=== PATIENT | male | born 1935 | race Caucasian/White ===

== ENCOUNTER → 2023-10-13 09:15 | Outpatient (REF) | payer MEDICARE, BC, SELFPAY | LOC: RAD 09:15 | PROVIDERS: ATTENDING PHYSICIAN Internal Medicine | DX: M54.31 Sciatica, right side (principal); M25.551 Pain in right hip | CPT/HCPCS: 72110; 73502 ==

== ENCOUNTER → 2024-06-16 10:31 | Outpatient (REF) | payer MEDICARE, BC, SELFPAY ==
[2024-06-16 11:59] LABS: % Immature Granulocytes 0.2 % (0-0.5); % Lymphocytes 30.6 % (20.5-51.1); % Monocytes 8.7 % (1.7-9.3); % Neutrophils 50.5 % (42.2-75.2); Absolute Basophils 0.1 10^3/uL (0-0.2); Absolute Eosinophils 0.6 10^3/uL (0-0.7); Absolute Lymphocytes 1.9 10^3/uL (1.2-3.4); Absolute Monocytes 0.5 10^3/uL (0.1-0.6); Absolute Neutrophils 3.1 10^3/uL (1.4-6.5); Hematocrit 42.9 % (39.0-52.0); Hemoglobin 14.6 g/dL (13.0-18.0); Mean Corpuscular Hgb 30.2 pg (27.0-31.0); Mean Corpuscular Volume 88.6 fL (80.0-94.0); Mean Platelet Volume 9.6 fL (7.4-10.4); Nucleated Red Blood Cells % 0 % (-); Platelet Count 152 10^3/uL (130-400); Red Blood Cell Count 4.84 10^6/uL (4.70-6.10); Red Cell Dist. Width 13.7 % (11.5-14.5); White Blood Cell Count 6.1 10^3/uL (4.8-10.8)
[2024-06-16 12:46] LABS: ALT (SGPT) 26 U/L (0-50); AST (SGOT) 30 U/L (17-59); Albumin 4.5 g/dl (3.5-5.0); Alkaline Phosphatase 121 U/L (38-126); Blood Urea Nitrogen 35 mg/dl (9-20); Calcium 9.9 mg/dl (8.4-10.2); Carbon Dioxide 20 mmol/L (22-30); Chloride 106 mmol/L (98-107); Glucose 122 mg/dl (70-99); HDL Cholesterol 57 mg/dl; LDL Cholesterol, Calculated 122 mg/dl; Sodium 138 mmol/L (135-145); Total Bilirubin 1.1 mg/dl (0.2-1.3); Total Cholesterol 209 mg/dl (50-199); Total Protein 7.6 g/dl (6.3-8.2); Triglyceride 151 mg/dl (10-149); Very Low Density Lipoprotein 30 mg/dl (0-30); eGFR 30.09
[2024-06-16 13:09] LABS: TSH 6.78 uIU/ml (0.47-4.68)
[2024-06-17 23:23] LABS: PSA Total <0.1 ng/mL (0.0-4.0)
== END ==
LOC: REG 10:31
PROVIDERS: ATTENDING PHYSICIAN Internal Medicine; OTHER PHYSICIAN Internal Medicine Cardiovascular Disease
DX: I10 Essential (primary) hypertension (principal); C67.9 Malignant neoplasm of bladder, unspecified; R73.03 Prediabetes; E78.5 Hyperlipidemia, unspecified; C61 Malignant neoplasm of prostate; E83.52 Hypercalcemia; R53.83 Other fatigue
CPT/HCPCS: 36415; 80053; 80061; 83036; 84153; 84154; 84443; 85025

== ENCOUNTER 2025-01-18 01:11 | Inpatient (IN) | payer MEDICARE, BC, SELFPAY ==
[2025-01-17 17:05] VITALS: BP 145/69
[2025-01-17 17:24] LABS: Hematocrit 40.0 % (39.0-52.0); Hemoglobin 13.4 g/dL (13.0-18.0); Mean Corp Hgb Conc. 33.5 g/dL (33.0-37.0); Mean Corpuscular Volume 89.3 fL (80.0-94.0); Nucleated Red Blood Cells % 0 % (-); Platelet Count 144 10^3/uL (130-400); Red Cell Dist. Width 13.8 % (11.5-14.5)
--- NOTE | 2025-01-17 17:26 | ED.GENMED ---
ED Provider Triage
<Ijeoma Andrade PA-C - Last Filed: 01/17/25 17:27>
-
Patient seen by provider in Triage?: Seen in Triage
Attestation: A medical screening examination has been initiated by a qualified medical provider. Based on the assessment performed at this time, it has been determined that an emergent medical condition may exist and the patient has been informed
that further medical evaluation and possible additional diagnostic testing may be needed.
HPI: 89yoM here with a positive outpatient venous duplex. C/o R leg swelling and pain x 5 days. US today showed 'Occlusive thrombus throughout the right lower extremity involving the right common femoral, femoral, popliteal, peroneal, and posterior
tibial veins.' IVC filter placed in 2006. Denies CP/SOB. Not on thinners.
GENERAL: Alert , in no apparent distress
EYE: No visual abnormalities.
NECK: Trachea midline
ENT: No visible abnormalities.
LUNGS: No acute respiratory distress
NEUROLOGICAL: Alert and oriented
SKIN: Skin intact. No visible changes.
MUSCULOSKELETAL: Moving extremities normally
PSYCH: Normal and appropriate interaction.
This is a medical evaluation conducted in person to initiate diagnostic evaluation and provide initial therapeutics. Please see further documentation by the treating clinician.
Labs ordered.
History of Present Illness
<Ijeoma Andrade PA-C - Last Filed: 01/17/25 17:27>
General
Chief Complaint: DVT/Possible Blood Clot
Time Seen by Provider: 01/17/25 21:38
<Silke Ronquillo MD, Resident - Last Filed: 01/18/25 00:03>
General
Source: patient and significant other
Nursing documentation reviewed up to this point in time: agreed with
History of Present Illness
History of Present Illness:
89 year old male with a past medical history of DVTs, prostate and bladder cancer, HTN, and HLD comes to the ED after getting U/S of his right lower extremity for DVT. He has been having pain and increased swelling of his right lower extremity since
last week Friday. He says that he has only been traveling to places an hour away and hadn't been bed ridden for long periods of times. The leg was very painful and prevented him from swimming. The pain was worse with walking and moving his calf.
He has not had had any fever, chills, shortness of breath, trouble breathing, or any abdominal pain, nausea or vomiting.
Past History
<Silke Ronquillo MD, Resident - Last Filed: 01/18/25 00:03>
Past History
ED Past Medical History: HTN, Hypercholesterolemia, Other (Bladder and Prostate Cancer), Other (DVT right leg with IVC filter due to failure of treatment with Coumadin (2006)) and Other (Chronic Kidney Disease)
ED Past Surgical History: Other (IVC Filter, Bladder Cancer surgery)
Review of Systems
<Silke Ronquillo MD, Resident - Last Filed: 01/18/25 00:03>
Review of Systems
Allergies reviewed?: Yes
Constitutional: Denies fever or chills
EENT: Reports no symptoms
Respiratory: Reports no symptoms
Cardiac: Reports no symptoms
ABD/GI: Reports no symptoms
: Reports no symptoms
Musculoskeletal: Reports edema (Right lower leg edema and pain)
Skin: Reports other (bilateral lower extremity discoloration)
Neurological: Reports no symptoms
Endocrine: Reports no symptoms
Hematologic/Lymphatic: Reports no symptoms
Psychiatric: Reports no symptoms
Phy Exam
<Silke Ronquillo MD, Resident - Last Filed: 01/18/25 00:03>
General Physical Exam
General Presentation: well appearing and mild distress
General age: appears stated age
General Skin: warm and dry
General Habitus: normal
General Mental: alert
Cardiovascular Exam
Cardiovascular Exam: regular rate/rhythm and no murmur
Pulmonary Exam
Pulmonary Exam: lungs clear, no respiratory distress, no crackles and no wheezing
Gastrointestinal Exam
Gastrointestinal Exam: normal bowel sounds, non tender, soft and non distended
Musculoskeletal Exam
Musculoskeletal Exam: edema (Right lower extremity edema/tenderness (upper groin area))
Skin Exam
Skin Exam: erythema and mottled
Course
<Ijeoma Andrade PA-C - Last Filed: 01/17/25 17:27>
Orders/Labs/Results
Orders:
Orders
01/17/25 17:16
Complete Blood Count/With Diff Urgent
Comprehensive Metabolic Panel Urgent
PT/INR [Prothrombin Time] Urgent
PTT Urgent
01/17/25 22:27
Vascular Surgery Consult Urgent
Consulting Provider: Yarelis Canales
Was physician already notified: Yes
Heparin 6,300 units IV NOW STA
01/17/25 22:28
Urinalysis Reflex To Culture Urgent
Nursing to Place Non Medication Order As Directed
Physician Order: PTT 6 hours after initial start of Heparin infusion
Above order entered?: Yes
01/17/25 22:29
0.9% Sodium Chloride 1000 ml [Nss] 1,000 ml IV BOLUS
01/17/25 22:30
Heparin 45841 Units/250 ml 25,000 units in 250 ml IV PER PROTOCOL
Weight to be used for heparin protocol in kilograms (kg):: 79
Protocol:: DVT/PE
PTT Goal Range to be used:: PTT 73 to 111 seconds
Order type:: Initial
INITIAL Infusion Dose (UNITS/KG/hr) & then follow protocol:: 18 units/kg/hr
Infusion Dose in UNITS/hr & then follow protocol (UNITS/hr):: 1,400
INFUSION RATE in mL/hr & then follow protocol (mL/hr):: 14
For DVT/PE algorithm, re-bolus for low PTT?: Yes
PTT less than or equal to 64 seconds:: Re-bolus 80 units/kg (max 10,000units). Increase by 300 units/hr
(+ 3mL/hr)
PTT 64.1 to 72.9 seconds:: Re-bolus 40 units/kg (max 5,000 units). Increase by 200 units/hr
(+ 2mL/hr)
PTT 73 to 111 seconds:: Target Range. No change in rate.
PTT 111.1 to 130.9 seconds:: Decrease rate by 200 units/hr (- 2 mL/hr)
PTT 131 to 199.9 seconds:: HOLD for 1 hr. Then decrease by 200 units/hr (- 2mL/hr)
PTT greater than or equal to 200 seconds:: HOLD for 2 hrs & Notify Provider. Then decrease by 300 units/hr
(- 3mL/hr)
Lab follow-up:: Each change, PTT q6h until 2 consecutive are therapeutic. Then
PTT daily.
01/17/25 22:34
CPK [Creatine Phosphokinase] Urgent
Comprehensive Metabolic Panel Urgent
PTT Urgent
Comment: Obtain baseline before beginning heparin infusion if not already collected
01/17/25 22:44
Heparin 6,300 units IV PRN PRN
01/17/25 22:45
Heparin 3,200 units IV PRN PRN
01/17/25 23:36
0.9% Sodium Chloride 500 ml [Nss] 500 ml IV BOLUS
Abnormal Lab Results
01/17/25 01/17/25
17:16 22:34
RBC 4.48 L 10^6/uL
(4.70-6.10)
Absolute Monos (auto) 0.7 H 10^3/uL
(0.1-0.6)
PT 15.9 H Sec
(11.4-14.6)
Sodium 134 L mmol/L
(135-145)
Potassium 5.7 H mmol/L
(3.5-5.1)
Chloride 108 H mmol/L 110 H mmol/L
(98-107) (98-107)
Carbon Dioxide 14 L* mmol/L 12 L* mmol/L
(22-30) (22-30)
BUN 84 H mg/dl 85 H mg/dl
(9-20) (9-20)
Creatinine 2.8 H mg/dL 2.7 H mg/dL
(0.7-1.3) (0.7-1.3)
Glucose 140 H mg/dl 147 H mg/dl
(70-99) (70-99)
01/17/25 17:16
01/17/25 22:34
Vital Signs
Initial and Last Documented VS:
Initial Vital Signs
Temp Pulse Resp BP Pulse Ox
37.2 C 71 16 145/69 100
01/17/25 17:05 01/17/25 17:05 01/17/25 17:05 01/17/25 17:05 01/17/25 17:05
Last Documented Vital Signs
Temp Pulse Resp BP Pulse Ox
37.2 C 70 18 136/77 100
01/17/25 17:05 01/17/25 23:07 01/17/25 23:07 01/17/25 23:07 01/17/25 23:07
<Silke Ronquillo MD, Resident - Last Filed: 01/18/25 00:03>
Orders/Labs/Results
Orders:
Orders
01/17/25 17:16
Complete Blood Count/With Diff Urgent
Comprehensive Metabolic Panel Urgent
PT/INR [Prothrombin Time] Urgent
PTT Urgent
01/17/25 22:27
Vascular Surgery Consult Urgent
Consulting Provider: Yarelis Canales
Was physician already notified: Yes
Heparin 6,300 units IV NOW STA
01/17/25 22:28
Urinalysis Reflex To Culture Urgent
Nursing to Place Non Medication Order As Directed
Physician Order: PTT 6 hours after initial start of Heparin infusion
Above order entered?: Yes
01/17/25 22:29
0.9% Sodium Chloride 1000 ml [Nss] 1,000 ml IV BOLUS
01/17/25 22:30
Heparin 26460 Units/250 ml 25,000 units in 250 ml IV PER PROTOCOL
Weight to be used for heparin protocol in kilograms (kg):: 79
Protocol:: DVT/PE
PTT Goal Range to be used:: PTT 73 to 111 seconds
Order type:: Initial
INITIAL Infusion Dose (UNITS/KG/hr) & then follow protocol:: 18 units/kg/hr
Infusion Dose in UNITS/hr & then follow protocol (UNITS/hr):: 1,400
INFUSION RATE in mL/hr & then follow protocol (mL/hr):: 14
For DVT/PE algorithm, re-bolus for low PTT?: Yes
PTT less than or equal to 64 seconds:: Re-bolus 80 units/kg (max 10,000units). Increase by 300 units/hr
(+ 3mL/hr)
PTT 64.1 to 72.9 seconds:: Re-bolus 40 units/kg (max 5,000 units). Increase by 200 units/hr
(+ 2mL/hr)
PTT 73 to 111 seconds:: Target Range. No change in rate.
PTT 111.1 to 130.9 seconds:: Decrease rate by 200 units/hr (- 2 mL/hr)
PTT 131 to 199.9 seconds:: HOLD for 1 hr. Then decrease by 200 units/hr (- 2mL/hr)
PTT greater than or equal to 200 seconds:: HOLD for 2 hrs & Notify Provider. Then decrease by 300 units/hr
(- 3mL/hr)
Lab follow-up:: Each change, PTT q6h until 2 consecutive are therapeutic. Then
PTT daily.
01/17/25 22:34
CPK [Creatine Phosphokinase] Urgent
Comprehensive Metabolic Panel Urgent
PTT Urgent
Comment: Obtain baseline before beginning heparin infusion if not already collected
01/17/25 22:44
Heparin 6,300 units IV PRN PRN
01/17/25 22:45
Heparin 3,200 units IV PRN PRN
01/17/25 23:36
0.9% Sodium Chloride 500 ml [Nss] 500 ml IV BOLUS
Abnormal Lab Results
01/17/25 01/17/25
17:16 22:34
RBC 4.48 L 10^6/uL
(4.70-6.10)
Absolute Monos (auto) 0.7 H 10^3/uL
(0.1-0.6)
PT 15.9 H Sec
(11.4-14.6)
Sodium 134 L mmol/L
(135-145)
Potassium 5.7 H mmol/L
(3.5-5.1)
Chloride 108 H mmol/L 110 H mmol/L
(98-107) (98-107)
Carbon Dioxide 14 L* mmol/L 12 L* mmol/L
(22-30) (22-30)
BUN 84 H mg/dl 85 H mg/dl
(9-20) (9-20)
Creatinine 2.8 H mg/dL 2.7 H mg/dL
(0.7-1.3) (0.7-1.3)
Glucose 140 H mg/dl 147 H mg/dl
(70-99) (70-99)
01/17/25 17:16
01/17/25 22:34
Vital Signs
Initial and Last Documented VS:
Initial Vital Signs
Temp Pulse Resp BP Pulse Ox
37.2 C 71 16 145/69 100
01/17/25 17:05 01/17/25 17:05 01/17/25 17:05 01/17/25 17:05 01/17/25 17:05
Last Documented Vital Signs
Temp Pulse Resp BP Pulse Ox
37.2 C 70 18 136/77 100
01/17/25 17:05 01/17/25 23:07 01/17/25 23:07 01/17/25 23:07 01/17/25 23:07
<Candelario Hudson MD - Last Filed: 01/18/25 00:37>
Orders/Labs/Results
Orders:
Orders
01/17/25 17:16
Complete Blood Count/With Diff Urgent
Comprehensive Metabolic Panel Urgent
PT/INR [Prothrombin Time] Urgent
PTT Urgent
01/17/25 22:27
Vascular Surgery Consult Urgent
Consulting Provider: Yarelis Canales
Was physician already notified: Yes
Heparin 6,300 units IV NOW STA
01/17/25 22:28
Urinalysis Reflex To Culture Urgent
Nursing to Place Non Medication Order As Directed
Physician Order: PTT 6 hours after initial start of Heparin infusion
Above order entered?: Yes
01/17/25 22:29
0.9% Sodium Chloride 1000 ml [Nss] 1,000 ml IV BOLUS
01/17/25 22:30
Heparin 53957 Units/250 ml 25,000 units in 250 ml IV PER PROTOCOL
Weight to be used for heparin protocol in kilograms (kg):: 79
Protocol:: DVT/PE
PTT Goal Range to be used:: PTT 73 to 111 seconds
Order type:: Initial
INITIAL Infusion Dose (UNITS/KG/hr) & then follow protocol:: 18 units/kg/hr
Infusion Dose in UNITS/hr & then follow protocol (UNITS/hr):: 1,400
INFUSION RATE in mL/hr & then follow protocol (mL/hr):: 14
For DVT/PE algorithm, re-bolus for low PTT?: Yes
PTT less than or equal to 64 seconds:: Re-bolus 80 units/kg (max 10,000units). Increase by 300 units/hr
(+ 3mL/hr)
PTT 64.1 to 72.9 seconds:: Re-bolus 40 units/kg (max 5,000 units). Increase by 200 units/hr
(+ 2mL/hr)
PTT 73 to 111 seconds:: Target Range. No change in rate.
PTT 111.1 to 130.9 seconds:: Decrease rate by 200 units/hr (- 2 mL/hr)
PTT 131 to 199.9 seconds:: HOLD for 1 hr. Then decrease by 200 units/hr (- 2mL/hr)
PTT greater than or equal to 200 seconds:: HOLD for 2 hrs & Notify Provider. Then decrease by 300 units/hr
(- 3mL/hr)
Lab follow-up:: Each change, PTT q6h until 2 consecutive are therapeutic. Then
PTT daily.
01/17/25 22:34
CPK [Creatine Phosphokinase] Urgent
Comprehensive Metabolic Panel Urgent
PTT Urgent
Comment: Obtain baseline before beginning heparin infusion if not already collected
01/17/25 22:44
Heparin 6,300 units IV PRN PRN
01/17/25 22:45
Heparin 3,200 units IV PRN PRN
01/17/25 23:36
0.9% Sodium Chloride 500 ml [Nss] 500 ml IV BOLUS
Abnormal Lab Results
01/17/25 01/17/25
17:16 22:34
RBC 4.48 L 10^6/uL
(4.70-6.10)
Absolute Monos (auto) 0.7 H 10^3/uL
(0.1-0.6)
PT 15.9 H Sec
(11.4-14.6)
Sodium 134 L mmol/L
(135-145)
Potassium 5.7 H mmol/L
(3.5-5.1)
Chloride 108 H mmol/L 110 H mmol/L
(98-107) (98-107)
Carbon Dioxide 14 L* mmol/L 12 L* mmol/L
(22-30) (22-30)
BUN 84 H mg/dl 85 H mg/dl
(9-20) (9-20)
Creatinine 2.8 H mg/dL 2.7 H mg/dL
(0.7-1.3) (0.7-1.3)
Glucose 140 H mg/dl 147 H mg/dl
(70-99) (70-99)
01/17/25 17:16
01/17/25 22:34
Vital Signs
Initial and Last Documented VS:
Initial Vital Signs
Temp Pulse Resp BP Pulse Ox
37.2 C 71 16 145/69 100
01/17/25 17:05 01/17/25 17:05 01/17/25 17:05 01/17/25 17:05 01/17/25 17:05
Last Documented Vital Signs
Temp Pulse Resp BP Pulse Ox
37.2 C 70 18 136/77 100
01/17/25 17:05 01/17/25 23:07 01/17/25 23:07 01/17/25 23:07 01/17/25 23:07
<Silke Ronquillo MD, Resident - Last Filed: 01/18/25 00:03>
MDM/Problems Addressed
Differential Diagnosis Includes:
DVT right lower extremity
MDM/Problems Addressed:
89 year old male with a past medical history of DVTs, prostate and bladder cancer, HTN, and HLD comes to the ED after getting U/S of his right lower extremity for possible DVT.
Tender on examination and blood work shows hyperkalemia and creatinine up from his baseline. Has underlying chronic kidney disease but CONY may be due to Rhabdomyolysis. Will check CPK, give IV fluids.
Discussed with Vascular for possible thrombolytic therapy, NPO after midnight for procedure in the morning
Will admit him and start him on Heparin drip
Chronic conditions affecting care: HTN, PVD, Kidney disease and Other (Hx of Cancer)
<Ijeoma Andrade PA-C - Last Filed: 01/17/25 17:27>
*Pulse Oximetry
SaO2: 100
Oxygen Mode of Delivery: Room air
<Silke Ronquillo MD, Resident - Last Filed: 01/18/25 00:03>
*Pulse Oximetry
Patient hypoxic: no
*Critical Care Note
Total Time (30-74mins, 75-104mins- exclusive of procedures): Not Applicable
ED Attending Note
<Ijeoma Andrade PA-C - Last Filed: 01/17/25 17:27>
-
Portions of this chart may have been created with voice recognition software.� Occasional wrong word or��sound alike� substitutions may have occurred due to the inherent limitations of voice recognition software.
<Candelario Hudson MD - Last Filed: 01/18/25 00:37>
ED Attending Note
Patient seen and examined by attending physician: Yes
I performed a history and physical exam of patient and discussed management with resident, I reviewed resident's note and agree with documented findings and plan of care.: Yes
ED Attending Note:
I have seen and evaluated the patient with a [id number] encounter. I have spoken to the resident and involved in the medical history, the physical exam, medical decision making.
Evaluation and management service: agree unless noted differently below.
Results interpretation: agree unless noted differently below.
Focused HPI: 89-year-old male with history of hypertension, hyperlipidemia, DVT status post IVC filter presents with his for evaluation of right leg pain and swelling, positive outpatient DVT study. Patient has history of DVT in 2007�at that
time he was started on Coumadin but it sounds like they had difficulty keeping his INR therapeutic and ultimately Coumadin was discontinued and he had an IVC filter placed. He says he has not had issues since. He says that over the past week he
has developed increased pain and swelling in the leg as well as discoloration. He had an outpatient ultrasound done which showed significant DVT which prompted ER referral. He denies any chest pain or shortness of breath or any other acute
complaints.
Physical exam: Awake and alert not in distress. He has marked edema in the right lower extremity extending from the proximal thigh down to the foot. He does have palpable pulses in the right leg femoral and DP. He does have some mild calf
tenderness. Slight reddish-purple discoloration of the skin in the right leg.
Medical Decision Makin-year-old male presents with leg pain and swelling, positive DVT as an outpatient. Outpatient ultrasound reviewed and shows occlusive thrombus throughout the right lower extremity including right common femoral, femoral,
popliteal, peroneal, posterior tibial veins. Will start patient on heparin infusion. Case discussed with vascular surgery for consultation�patient likely candidate for thrombolysis. N.p.o. at midnight. They recommended CT venogram to evaluate
proximal clot but labs today showed renal insufficiency with a creatinine of 2.7 and a GFR of 22 and so we will hold off on contrast study pending fluid resuscitation and repeat labs. Discussed case with hospitalist for admission.
Discharge Plan
Departure
Patient Disposition: Admit
Date of Disposition: 01/17/25
Time of Disposition: 23:37
Admit to doctor: Arnold
Presentation/result/management discussed w/ accepting MD/DO: Hospitalist
Discharge Problem:
DVT (deep venous thrombosis), CONY (acute kidney injury), Metabolic acidosis
Referrals:
NONE,* [Active, Internal Medicine]
Interventions
Interventions:
ED- Cardiac Assessment Last Done: 01/17/25 22:43
ED- Pulmonary Assessment Last Done: 01/17/25 22:43
ED-Peripheral Vascular Assessment Last Done: 01/17/25 22:43
ED-Skin Assessment Last Done: 01/17/25 22:43
Discharge Date and Time
Print Language: JORDANIAN
[2025-01-17 17:37] LABS: INR 1.24; PT 15.9 Sec (11.4-14.6)
[2025-01-17 17:38] LABS: ALT (SGPT) 20 U/L (0-50); APTT 32.8 Sec (23.4-35.0); AST (SGOT) 21 U/L (17-59); Albumin 4.8 g/dl (3.5-5.0); Alkaline Phosphatase 121 U/L (38-126); Blood Urea Nitrogen 84 mg/dl (9-20); Calcium 10.1 mg/dl (8.4-10.2); Carbon Dioxide 14 mmol/L (22-30); Chloride 108 mmol/L (98-107); Glucose 140 mg/dl (70-99); Potassium 5.7 mmol/L (3.5-5.1); Sodium 135 mmol/L (135-145); Total Protein 8.1 g/dl (6.3-8.2); eGFR 21.17
[2025-01-17 20:00] VITALS: BP 124/74
[2025-01-17 22:00] VITALS: BP 126/102
[2025-01-17 22:03] VITALS: BMI 27.3
[2025-01-17] MEDS: NSS 1000 IV (22:34)
[2025-01-17 22:55] LABS: APTT 33.1 Sec (23.4-35.0)
[2025-01-17] MEDS: HEPARIN 6300 UNITS IV (22:56)
[2025-01-17 23:00] VITALS: BP 136/77
[2025-01-17 23:07] VITALS: BP 136/77
[2025-01-17 23:17] LABS: ALT (SGPT) 18 U/L (0-50); AST (SGOT) 19 U/L (17-59); Albumin 4.5 g/dl (3.5-5.0); Alkaline Phosphatase 116 U/L (38-126); Blood Urea Nitrogen 85 mg/dl (9-20); Calcium 9.8 mg/dl (8.4-10.2); Carbon Dioxide 12 mmol/L (22-30); Chloride 110 mmol/L (98-107); Estimated Creatinine Clearance 18 ml/min; Glucose 147 mg/dl (70-99); Potassium 5.0 mmol/L (3.5-5.1); Sodium 134 mmol/L (135-145); Total Protein 7.5 g/dl (6.3-8.2); eGFR 22.12
[2025-01-18] VITALS (13 sets, daily range): BP systolic 106–150; BP diastolic 42–90; BMI 27.3
--- NOTE | 2025-01-18 00:50 | HPS.HSE ---
Family Physician
-
Family Physician: Jaleel Arce
Chief Complaint
-
RLE Pain / Swelling
History of Present Illness
Patient is an 89y M with PMH significant for prostate cancer, bladder cancer and prior DVT who presents to ED complaining of pain and swelling in the RLE for about one week. Patient denies any recent travel, long car / plane rides, recent
surgery, injury, etc. He noted gradually progressive swelling in the RLE over the past week - most recently involving the scrotum / genitals as well. He reports tightness and pain from the R hip to the toes.
Patient has prior h/o RLE DVT in 2010. Had IVC filter placed at that time and was on OAC for a brief period.
He denies any chest pain or dyspnea.
No other recent complaints / concerns.
Medical History
Past Medical History
Past Medical History: Reports Other
Additional Past Medical History:
Hypertension
CKD III
Gout
Prostate Cancer s/p XRT
Bladder Cancer
Prior RLE DVT
Past Surgical History: Reports Other
Additional Past Surgical History:
Prostate Seeds
TURBT
IVC Filter Placement
Social History
Tobacco: Former Smoker
Alcohol: Occasional
Drug: None
Family History
Family History: Not pertinent
Allergies / Home Medications
Allergies reflects when Allergies were last updated in [facility].
Home Medications with original date entered in [facility]
Allergy/Medication List:
Allergies
Allergy/AdvReac Type Severity Reaction Status Date / Time
allopurinol Allergy Rash Verified 01/17/25 17:09
Home Medications
amlodipine 5 mg tablet 7.5 mg PO DAILY 01/18/25
ezetimibe 10 mg tablet 10 mg PO DAILY 01/18/25
febuxostat 40 mg tablet (Uloric) 40 mg PO DAILY 01/18/25
lisinopril 20 mg tablet 20 mg PO DAILY 01/18/25
Review of Systems
-
History Source: Patient
A 12 point ROS was completed and negative except as noted: Yes
Constitutional: Denies Fever or Chills
Respiratory: Denies Cough or Trouble Breathing
Cardiac: Denies Chest Pain or Palpitations
Abdomen/GI: Denies Abdominal Pain, Nausea, Vomiting or Diarrhea
Musculoskeletal: Reports Muscle Pain and Edema
Neurological: Denies Dizzy or Headache
Physical Exam
Vital Signs
Vital Signs
Temp Pulse Resp BP Pulse Ox
99 F 59 16 122/59 100
01/17/25 17:05 01/18/25 00:30 01/18/25 00:30 01/18/25 00:00 01/17/25 23:07
Physical Exam
General: Other (89y M in no acute distress.)
HEENT: Moist mucous membranes and PERRLA
Respiratory: Clear; No Wheezes, Rales or Rhonchi
Cardiac: S1/S2 and Regular Rhythm; No Murmur
GI: Soft, Non Tender, Non Distended and Normal Bowel Sounds
Musculoskeletal: Other (Edema of the entire RLE extending into the perineum / scrotum. Pos tenderness throughout the thigh / calf. R foot cool.)
Neuro: AO x 3
Laboratory Results
-
01/17/25 17:16
01/17/25 22:34
Laboratory Results
PT 15.9 Sec (11.4-14.6) H 01/17/25 17:16
INR 1.24 01/17/25 17:16
APTT 33.1 Sec (23.4-35.0) 01/17/25 22:34
Total Bilirubin 0.9 mg/dl (0.2-1.3) 01/17/25 22:34
AST 19 U/L (17-59) 01/17/25 22:34
ALT 18 U/L (0-50) 01/17/25 22:34
Alkaline Phosphatase 116 U/L (38-126) 01/17/25 22:34
Impression/Plan
-
A/P: Patient is an 89y M with PMH significant for prostate cancer, bladder cancer and prior DVT who presents to ED complaining of pain and swelling in the RLE for about one week.
Extensive RLE DVT
- Admit for further evaluation and treatment.
- IV heparin overnight.
- Vascular Surgery consulted - prob for intervention / thrombectomy in AM.
- Has IVC filter in place from 2010.
- Will likely require lifelong anticoagulation following this second / extensive event.
CONY on CKD
Metabolic Acidosis
- SCr = 2.7 compared to baseline of 2.1.
- Non-gapped metabolic acidosis - ? more chronic / secondary to CKD.
- IVFs with supplemental bicarb for now.
- Consider ongoing PO bicarb supplementation if needed after CONY improved.
- Follow for changes in renal function.
- Renal US in AM.
Benign Hypertension
- Hold usual meds acutely.
History of Gout
- Hold Uloric acutely.
Bladder Cancer
Prostate Cancer
- No active treatments / disease known.
- s/p XRT, TURBT, etc.
Code Status: Full
[2025-01-18] MEDS: NSS 500 IV (01:23)
[2025-01-18 01:46] LABS: Urine Character Clear (Clear)
[2025-01-18 02:18] LABS: Urine Red Blood Cell 0-2 /HPF (0-2)
[2025-01-18 02:19] LABS: Urine White Cell 30-40 /HPF (0-5)
[2025-01-18 03:58] LABS: APTT > 200.0 Sec (23.4-35.0)
[2025-01-18] MEDS: SODIUM BICARBONATE 1150 MEQ IV ×2 (04:34→16:58)
[2025-01-18] MEDS: HEPARIN 25000 UNITS/250 ML IV (06:00)
[2025-01-18 07:03] LABS: Blood Urea Nitrogen 78 mg/dl (9-20); Calcium 8.5 mg/dl (8.4-10.2); Carbon Dioxide 16 mmol/L (22-30); Chloride 113 mmol/L (98-107); Estimated Creatinine Clearance 20 ml/min; Glucose 111 mg/dl (70-99); Potassium 5.0 mmol/L (3.5-5.1); Sodium 137 mmol/L (135-145); eGFR 25.48
[2025-01-18 07:17] LABS: Hematocrit 33.0 % (39.0-52.0); Hemoglobin 11.3 g/dL (13.0-18.0); Mean Corp Hgb Conc. 34.2 g/dL (33.0-37.0); Mean Corpuscular Volume 88.0 fL (80.0-94.0); Platelet Count 104 10^3/uL (130-400); Red Cell Dist. Width 13.7 % (11.5-14.5)
--- NOTE | 2025-01-18 08:49 | CON.VAS ---
Addendum entered and electronically signed by Sergey Macias III, MD 01/18/25 10:56:
This patient was seen and examined in collaboration with TONY Cross. I agree with the history and physical exam as well as the assessment and plan. I have the following additions:
Prior DVT of the right lower extremity in
IVC filter placed at that time for unclear reasons
Not removed
Now with 1 week of right lower extremity edema and discoloration
Duplex personally reviewed and shows extensive right lower extremity DVT. Occlusive thrombus involving the right common femoral, femoral, popliteal and tibial veins
On physical exam he is nontoxic-appearing
Nonlabored breathing
Right leg diffuse edema involving the thigh and the calf/ankle
Palpable pedal pulses, right foot warm
Some blistering evident on the dorsum of the right foot
He has extensive RLE DVT with a prior history of DVT and an IVC filter. My concern is that he has thrombus extending through the iliac system and perhaps the IVC to the level of the filter based on his history and imaging results. I would favor
proceeding with a CT venogram of the abdomen and pelvis to better evaluate this. If iliac/IVC involvement is confirmed he may be a candidate for pharmacomechanical thrombolysis. He has baseline chronic kidney disease. I would recommend that we
hydrate pre/post scan and move forward with CT venogram. Continue heparin drip.
[place] once imaging has been completed so that we can determine a surgical plan.
Signed:
Sergey Macias III, MD
Vascular Surgery
[facility]
Original Note:
Consultation
Consultation Request
Date/Time Consultation Performed: 01/18/2025 7:45 AM
Performing Provider: Colleen
Reason for Consultation: Right lower extremity DVT
Medical History
-
Chief Complaint: Right lower extremity pain/swelling
History of Present Illness:
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 Patient is presenting to the emergency room today for right lower
extremity pain and swelling for 1 week. Patient denies recent travel/long car ride, plane ride, recent injury.
ER ultrasound: Occlusive thrombus throughout the right lower extremity involving the right common femoral, femoral, popliteal, peroneal, and posterior tibial veins.
Vascular consult for right lower extremity DVT. Patient seen at bedside in the emergency room this morning with Dr. Macias. Patient states he noted swelling that started on Friday and progressed over the weekend. Patient has no other
complaints. In the past patient was on Coumadin which he states could not be optimized. This led to the IVC filter placement.
Past Medical History
Past Medical History: Other (Hypertension, CKD 3, gout, prostate cancer status post radiation, bladder cancer, right lower extremity DVT in 2006)
Past Surgical History: Other (IVC filter, TURBT, prostate seeds)
Social History
Tobacco: Former Smoker
Alcohol: Occasional
Drug: None
Family History
Family History: Reviewed & Not Pertinent
Allergies / Home Medications
Allergy/AdvReac Type Severity Reaction Status Date / Time
allopurinol Allergy Rash Verified 01/17/25 17:09
�Medication �Instructions �Recorded �Confirmed �Type
amlodipine 5 mg tablet 7.5 mg PO DAILY 01/18/25 01/18/25 History
ezetimibe 10 mg tablet 10 mg PO DAILY 01/18/25 01/18/25 History
febuxostat 40 mg tablet (Uloric) 40 mg PO DAILY 01/18/25 01/18/25 History
lisinopril 20 mg tablet 20 mg PO DAILY 01/18/25 01/18/25 History
Review of Systems
-
History Source: Patient
All other systems: Negative unless noted
Constitutional: Reports No Symptoms
EENT: Reports No Symptoms
Respiratory: Reports No Symptoms
Cardiac: Reports No Symptoms
Vascular: Denies Leg Pain / Claudication
Abdomen/GI: Reports No Symptoms
: Reports No Symptoms
Musculoskeletal: Reports Muscle Stiffness and Edema
Skin: Reports No Symptoms
Neurological: Reports No Symptoms
Physical Exam
Vital Signs
Temp Pulse Resp BP Pulse Ox
99 F 77 18 136/62 97
01/17/25 17:05 01/18/25 08:15 01/18/25 08:15 01/18/25 08:00 01/18/25 08:00
Lab Results
01/18/25 06:11
01/18/25 06:11
Physical Exam
General: No Apparent Distress
HEENT: Normocephalic and Atraumatic
Respiratory: Non Labored Respirations
Cardiac: Negative JVD
GI: Soft and Non Tender
Musculoskeletal: No Clubbing, No Cyanosis and Edema (Right lower extremity)
Skin: Warm
Neuro: Awake, Alert and Oriented
Psych: Calm
Pulses: Right Dorsalis Pedis: +1
Assessment / Plan
-
89-year-old active male here with occlusive right lower extremity DVT
History of right lower extremity DVT and filter placement
Not currently on anticoagulation
Plan:
CT venogram to assess extent of clot
Hydration with sodium bicarb initiated
Will [place] back with treatment plan when scan is complete
Data Reviewed
-
Ultrasound: Discussed with Patient
Labs: Labs Reviewed by me
--- NOTE | 2025-01-18 09:30 | PTCARENOTE ---
Rec'd Pt 0855, A,A+Ox3, denies pain. R leg reddened with +1-2 edema. Bilat DP pulses are present with Doppler but sound weak and thready. + PT pulses with doppler bilat. Lungs clear, Pt on sat 96%. Pt ordered bedrest
[2025-01-18 10:55] LABS: APTT 81.8 Sec (23.4-35.0)
--- NOTE | 2025-01-18 11:05 | W.CON.NEPH ---
Consultation
-
Date/Time Consultation Requested: 01/18/2025 10:30 AM
Date/Time Consultation Performed: 01/18/2025 11:00 AM
Requesting Provider: Dr. Macias
Performing Provider: Dr. Pena
Reason for Consultation: Chronic kidney disease stage IV
Medical History
-
Chief Complaint: Chronic kidney disease stage IV
History of Present Illness:
The patient is a 89-year-old male with a past medical history of chronic kidney disease stage IIIb who normally maintains a creatinine in the low twos. He has a prior history of hypertension maintained on amlodipine and lisinopril. He also has a
history of prostate cancer and has undergone previous TURBT and radiation therapy. 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 The patient is presented to the emergency room for right lower extremity pain and
swelling for 1 week. Patient denies recent travel/long car ride, plane ride, recent injury.
ER ultrasound noted and occlusive thrombus throughout the right lower extremity involving the right common femoral, femoral, popliteal, peroneal, and posterior tibial veins. Due to extensive clot burden vascular surgery was consulted and wishes to
perform a CT venogram. Nephrology was consulted for his chronic kidney disease in the setting of IV contrast administration (venogram)
Past Medical History
Hypertension
CKD IIIb (2.1)
Gout
Prostate Cancer s/p XRT and TURBT
Bladder Cancer
Prior RLE DVT (2006)
IVC filter placement
Social History
Tobacco: Former Smoker
Alcohol: Occasional
Drug: None
Family History
Family History: Not Pertinent
Allergies / Home Medications
Allergy/AdvReac Type Severity Reaction Status Date / Time
allopurinol Allergy Rash Verified 01/17/25 17:09
�Medication �Instructions �Recorded �Confirmed �Type
amlodipine 5 mg tablet 7.5 mg PO DAILY 01/18/25 01/18/25 History
ezetimibe 10 mg tablet 10 mg PO DAILY 01/18/25 01/18/25 History
febuxostat 40 mg tablet (Uloric) 40 mg PO DAILY 01/18/25 01/18/25 History
lisinopril 20 mg tablet 20 mg PO DAILY 01/18/25 01/18/25 History
Review of Systems
-
History Source: Patient
All other systems: Negative unless noted
EENT: No Symptoms
Respiratory: No Symptoms
Cardiac: No Symptoms
Abdomen/GI: No Symptoms
: Other (Scrotal edema)
Musculoskeletal: Edema (Right lower extremity edema pain)
Physical Exam
Vital Signs
Vital Signs
Temp Pulse Resp BP Pulse Ox
98.4 F 66 18 136/62 98
01/18/25 08:51 01/18/25 08:51 01/18/25 08:51 01/18/25 08:00 01/18/25 08:51
Lab Results
01/18/25 06:11
WBC 5.3 10^3/uL (4.8-10.8) 01/18/25 06:11
RBC 3.75 10^6/uL (4.70-6.10) L 01/18/25 06:11
Hgb 11.3 g/dL (13.0-18.0) L 01/18/25 06:11
Hct 33.0 % (39.0-52.0) L 01/18/25 06:11
Plt Count 104 10^3/uL (130-400) L D 01/18/25 06:11
eGFR 25.48 01/18/25 06:11
Albumin 4.5 g/dl (3.5-5.0) 01/17/25 22:34
Physical Exam
General: AOx3, Nontoxic , NAD
HEENT: PERRL, EOMI, Anicteric, Conjunctivae Clear, Ear/Nose Intact, Hearing Normal, Oropharynx Clear/Moist, Dentition Intact, Facial Symmetry, Neck Supple, Neck: Trachea Midline, No JVD and No Thyromegaly, no Bruits
Respiratory: Clear to auscultation bilaterally with normal lung excursion
Cardiac: S1/S2 and Regular Rate/Rhythm
Breast: Deferred by me
Abdomen: Soft, Nontender, Nondistended, Normal Bowel Sounds and No Hepatosplenomegaly
Rectal: Deferred by Provider
Genito-urinary: No Costovertebral Tenderness, scrotal edema
Extremities: No Clubbing, No Cyanosis and (Edema of the entire RLE extending into the perineum / scrotum. Pos tenderness throughout the thigh / calf. R foot cool.)
Skin: No Rash or open lesions
Neuro: Nonfocal/Grossly Intact, CN II-XII (Intact) and Strength (Musculoskeletal exam 5 out of 5 both upper and lower extremities)
Hematologic/Lymphatic: No Cervical Lymphadenopathy, No Submandibular Lymphadenopathy and No Supraclavicular Lymphadenopathy
Psych: Mood/afflect pleasant, Insight/judgement good and Appropriate
Vascular: plus 1 pedal and radial pulses
Data Reviewed
-
Radiology: Report Reviewed by me (Ultrasound of right lower extremity notes occlusive thrombosis of right lower extremity involving right common femoral femoral popliteal peroneal and posterior tibial vein)
Labs: Labs Reviewed by me (BMP CBC, UA (many bacteria 2+ albumin 2+ leukocyte esterase no blood)
Old Records: Reviewed (Old records reviewed including creatinine of 2.1 as of June 16, 2024 per review of EMR)
Assessment/Plan
-
Impression:
CONY
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
Proteinuria
Gapped and predominantly non gapped metabolic acidosis (AG 13)
Right lower extremity extensive DVT
History of hypertension
History of prostate and bladder cancer status post TURBT/radiation
History of gout
Plan:
CONY:
- Resolving with IV fluid resuscitation with sodium bicarb at 100 cc/hr
- Withhold lisinopril
-Metabolic acidosis is likely a function of acute kidney injury likely complicated by OZIEL antagonist
- Currently hemodynamically stable off antihypertensives
- Patient can proceed forward with venogram with IV fluids and withhold RAAS antagonist
-Explained risks and benefits with at bedside
- Kidney and bladder ultrasound to be obtained and reviewed
-Quantitate underlying proteinuria with urine protein to creatinine ratio
--- NOTE | 2025-01-18 12:33 | CM ---
Chart reviewed. Patient is independent of ADLS, lives with his in [place] in a cottage at [facility], 1 STH, 0 ISAI, 0 DME. Plan is for the patient to return home. CM to follow
[2025-01-18 12:35] LABS: Blood Urea Nitrogen 78 mg/dl (9-20); Calcium 9.2 mg/dl (8.4-10.2); Carbon Dioxide 14 mmol/L (22-30); Chloride 114 mmol/L (98-107); Estimated Creatinine Clearance 19 ml/min; Glucose 115 mg/dl (70-99); Potassium 5.0 mmol/L (3.5-5.1); Sodium 137 mmol/L (135-145); eGFR 24.26
--- NOTE | 2025-01-18 13:33 | PTCARENOTE ---
1300 Pt returned from U/S and CT scan
--- NOTE | 2025-01-18 15:02 | W.PN.UPDATE ---
Update Note
Progress Note Update
Vascular favors proceeding with CT venogram of the abdomen pelvis to better evaluate iliac system.
Discussed possibility of contrast induced nephropathy and equiring dialysis, unknown length with patient after venogram. Patient understands risks and benefits, and agrees to proceed with the study
If iliac/IVC involvement is confirmed, may be candidate for hormone mechanical thrombolysis
Continue hydrate pre-/post scan
Continue IV heparin
Hold lisinopril indefinitely
May be candidate for sodium HCO3 supplementation in the future
No complaints of any urinary issues
Has mild bilateral hydronephrosis on ultrasound, no evidence of enlarged prostate on US
--- NOTE | 2025-01-18 16:46 | W.PN.UPDATE ---
Update Note
Progress Note Update
CT venogram personally reviewed
He has extensive thrombus throughout the entire infrarenal vena cava up to the level of the filter. Appears to have occlusive thrombus in bilateral iliac veins.
Venous duplex demonstrates extensive DVT in the right lower extremity.
He is asymptomatic in his left lower extremity.
I had a long conversation with Mr. Luke regarding the CT findings as well as the venous duplex once again. I explained the options:
1.) Proceed with endovascular intervention by way of bilateral LE/iliocaval venography and initiation of thrombolysis. The technical aspects of this procedure were discussed with him in detail. The benefits and rationale for this procedure were
discussed with him in detail. Operative risks were discussed with him in detail including but not limited to bleeding, , PE, renal failure, inability to successfully clear the thrombus, residual swelling and the need for additional procedures.
2.) Continue with systemic anticoagulation alone with no surgical intervention. Compression and leg elevation. Observation. The advantage of this approach was discussed with him in terms of avoiding the risks of surgery/thrombolysis. The risks of
this approach were explained to him including but not limited to persistent swelling, persistent pain, worsening symptoms, limb loss, post phlebitic syndrome (which could be disabling).
I explained that with either approach he would need to continue systemic anticoagulation as well as leg elevation and compression.
He would like some additional time to think about the options above and would also like to discuss these options with his before finalizing a decision.
Continue heparin drip with therapeutic ptt goal.
Since no surgery is planned today he can eat but keep NPO after MN for possible OR tomorrow.
Call with questions/concerns
Sergey Macias III, MD
Vascular Surgery
[facility]
[2025-01-18 18:34] LABS: APTT 111.6 Sec (23.4-35.0)
--- NOTE | 2025-01-18 21:47 | PTCARENOTE ---
Received pt @ change of shift. AAOx3, VSS-- NSR w/ BBB on monitor. Doppler posterior tibial and dorsal pedis in bilateral legs. Right leg warm to touch, shiny and red. US of LLE completed. Denies any pain @ this time. Heparin gtt running @ 900
units/hour and bicarb gtt running @ 100 mL/hr through left AC. Discussed importance of complete bedrest and NPO @ midnight. Pt verbalizes understanding. Call laurent within reach.
[2025-01-19] MEDS: HEPARIN 25000 UNITS/250 ML IV ×2 (00:13→23:16)
[2025-01-19 00:45] LABS: APTT 78.1 Sec (23.4-35.0)
[2025-01-19] MEDS: SODIUM BICARBONATE 1150 MEQ IV (04:49)
[2025-01-19 06:44] LABS: ALT (SGPT) 14 U/L (0-50); AST (SGOT) 20 U/L (17-59); Albumin 3.6 g/dl (3.5-5.0); Alkaline Phosphatase 108 U/L (38-126); Blood Urea Nitrogen 72 mg/dl (9-20); Calcium 8.9 mg/dl (8.4-10.2); Carbon Dioxide 22 mmol/L (22-30); Chloride 109 mmol/L (98-107); Estimated Creatinine Clearance 21 ml/min; Glucose 98 mg/dl (70-99); Potassium 4.3 mmol/L (3.5-5.1); Sodium 138 mmol/L (135-145); Total Protein 6.1 g/dl (6.3-8.2); eGFR 26.81
[2025-01-19 06:54] LABS: Hematocrit 31.8 % (39.0-52.0); Hemoglobin 11.2 g/dL (13.0-18.0); Mean Corp Hgb Conc. 35.2 g/dL (33.0-37.0); Mean Corpuscular Volume 87.6 fL (80.0-94.0); Platelet Count 93 10^3/uL (130-400); Red Cell Dist. Width 13.5 % (11.5-14.5)
[2025-01-19 07:14] LABS: APTT 65.2 Sec (23.4-35.0)
[2025-01-19 07:46] VITALS: BP 151/65
[2025-01-19] MEDS: HEPARIN 3200 UNITS IV ×2 (08:15→21:45)
--- NOTE | 2025-01-19 08:25 | W.PN.VS ---
Today's Communication / Plan
-
Seen and assessed with Dr. Sotelo
Assessment/Plan
-
89-year-old male here with extensive right lower extremity DVT to the level of his IVC filter
Plan:
Patient taking over his options, we will follow-up later this morning for plan
Subjective Data
-
Date of Service: January 19, 2025
Patient seen at bedside with Dr. Sotelo. Patient offers no new complaints at this time. No events overnight.
Objective Data
-
Vital Signs
Temp Pulse Resp BP Pulse Ox
98.5 F 57 18 134/65 94
01/19/25 07:48 01/19/25 07:00 01/19/25 07:48 01/18/25 22:22 01/19/25 07:48
Intake and Output
01/18/25 01/19/25 01/20/25
06:59 06:59 06:59
Intake Total 2308 / 2308
Output Total 1500 / 1500
Balance 808 / 808
Intake:
IV fluids (Total) 2308 / 2308
Heparin 108 / 108
Sterile Water For Injection 0 / 2200
1000 ml 1,000 ml @ 100 mls/hr
IV .[id number] ОЛЬГА with Sodium
Bicarbonate 150 Meq Rx#:
[id number]
Output:
Urine, Voided 1500 / 1500
Lab Results
01/19/25 05:50
01/19/25 05:50
Calcium 8.9 mg/dl (8.4-10.2) 01/19/25 05:50
Phosphorus 3.6 mg/dl (2.5-4.5) 01/19/25 05:50
Total Bilirubin 0.7 mg/dl (0.2-1.3) 01/19/25 05:50
AST 20 U/L (17-59) 01/19/25 05:50
ALT 14 U/L (0-50) 01/19/25 05:50
Alkaline Phosphatase 108 U/L (38-126) 01/19/25 05:50
Total Protein 6.1 g/dl (6.3-8.2) L 01/19/25 05:50
Albumin 3.6 g/dl (3.5-5.0) 01/19/25 05:50
Physical Exam
-
AO x 3
No tachypnea on room air
No tachycardia
Abdomen soft
Right leg with +2 pitting edema, soft, full range of motion
Bilateral feet warm and pink with palpable pulses
--- NOTE | 2025-01-19 08:47 | PTCARENOTE ---
Patient's Ptt came back at 65.2. I bolused the patient with 3500 units of heparin and increased hid gtt from 900units/hr to 1100units/hr as per protocol.
--- NOTE | 2025-01-19 09:03 | PTCARENOTE ---
The patient is aaox3, vital signs are stable. He has no complaints of pain. NSR is noted on the monitor. A positive right pedal pulse and tibial was noted by Doppler. A left tibial pulse was noted by Doppler, however I was unable to obtain a right
pedal pulse by Doppler. His right leg is red and warm with +1-2 edema present. He has a small serous filled blister on his right posterior foot. I instructed him on his activity restrictions. His call laurent is within reach.
--- NOTE | 2025-01-19 11:20 | W.PN.NEPH.PH ---
Addendum entered and electronically signed by Opal Lema MD 01/19/25 13:05:
noted contrast exposure on 01/18, follow cr with risk of MARIO
Original Note:
Today's Communication / Plan
-
check bladder scan
if no retention consult
follow labs
Assessment/Plan
-
Impression:
CONY
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
Proteinuria
Gapped and predominantly non gapped metabolic acidosis (AG 13)
Right lower extremity extensive DVT
History of hypertension
History of prostate and bladder cancer status post TURBT/radiation
History of gout
Plan:
CONY:
cr slightly better with IVF
UA pyuria and U cx neg,UPCR Only 0.3gm/gm of cr
CT and US shows new bilat hydro
he is non oliguric, check bladder scan if neg, consult
met acidosis is improving and can change iVF to 1./2ns with bicarb
cont tto Withhold lisinopril
await vasc intervention and pt decision
follow labs
-
-
Date of Service: January 19, 2025
CC / HPI / ROS
-
Chief Complaint:
CONY with CKD
History of Present Illness:
cr better a2.3, non oliguric
on heparin gtt
met acidosis is better bicarb at 22
BP stable
plt decreasing to 93
Review of Systems:
no cp or sob
no abd pain
right leg edema no change
Labs
-
Labs:
WBC 4.3 10^3/uL (4.8-10.8) L 01/19/25 05:50
RBC 3.63 10^6/uL (4.70-6.10) L 01/19/25 05:50
Hgb 11.2 g/dL (13.0-18.0) L 01/19/25 05:50
Hct 31.8 % (39.0-52.0) L 01/19/25 05:50
Plt Count 93 10^3/uL (130-400) L 01/19/25 05:50
Sodium 138 mmol/L (135-145) 01/19/25 05:50
Potassium 4.3 mmol/L (3.5-5.1) 01/19/25 05:50
Chloride 109 mmol/L (98-107) H 01/19/25 05:50
Carbon Dioxide 22 mmol/L (22-30) 01/19/25 05:50
BUN 72 mg/dl (9-20) H 01/19/25 05:50
Creatinine 2.3 mg/dL (0.7-1.3) H 01/19/25 05:50
eGFR 26.81 01/19/25 05:50
Glucose 98 mg/dl (70-99) 01/19/25 05:50
Calcium 8.9 mg/dl (8.4-10.2) 01/19/25 05:50
Phosphorus 3.6 mg/dl (2.5-4.5) 01/19/25 05:50
Albumin 3.6 g/dl (3.5-5.0) 01/19/25 05:50
Physical Exam
-
Vital Signs:
Vital Signs
Temp Pulse Resp BP Pulse Ox
98.5 F 63 18 151/65 94
01/19/25 07:48 01/19/25 09:00 01/19/25 07:48 01/19/25 07:46 01/19/25 07:48
Cardiovascular:: Regular rate and rhythm
Respiratory:: Bilateral: CTA
Lung Excursion:: Normal
Abdomen:: Nontender and Soft
Extremity Edema:: +3: Right: and None: Left:
Macias Catheter: No
[2025-01-19 11:28] VITALS: BP 140/57
--- NOTE | 2025-01-19 11:35 | CM ---
Chart reviewed. Patient is independent of ADLS, lives with his in [place] at [facility], [address], 0 DTE, 0 DME. Plan is for the patient to return home. CM to follow
--- NOTE | 2025-01-19 11:51 | W.PN.UPDATE ---
Update Note
Progress Note Update
Seen and evaluated twice. Extensive conversations with the patient, and when I returned with the patient and his together. I reviewed all his pertinent imaging as well. Extensive right lower extremity DVT involving ileal caval segment as
well. His leg is soft with no evidence of phlegmasia. There is some swelling in the right thigh and calf compared to the left side, but compartments are all soft, the leg is soft.
I discussed management of acute DVTs. Discussed with iliofemoral segment, there may be some benefit in select patients for catheter directed interventions. Discussed with him that all that. Discussed my concern about catheter-based interventions
namely the risks. It is an invasive procedure. And if involving catheter directed thrombolysis (which I would favor in him over mechanical thrombectomy alone due to better dissolution of the clot), there certainly is significant bleeding risk
especially in an 89-year-old. I discussed other risks including but not limited to pulmonary embolism (even with the filter in place, there is risks of smaller emboli, and may be less tolerated in an 89-year-old), as well as anesthesia related
risks (need for prone positioning). I discussed the mainstay of benefit in catheter-based interventions for acute DVT (iliofemoral) to be mainly reduction or mitigation of postthrombotic syndrome (more of a long-term problem) based on literature.
While it is not unreasonable to proceed with catheter-based intervention, given relative mild exam (leg is not tight, no phlegmasia), and given his age and therefore risk for intervention (even though he is a good vibrant 89-year-old), I would lean
towards more conservative management with anticoagulation alone. In my eyes the risks may outweigh the benefit. Discussed this all frankly with the patient and his . They are in agreement with this stands for now. We agreed that we will
continue Omar bandage wrapping for now (wrapped by my team earlier today), and we will reassess in the morning. If he is having continued significant symptoms and/or he wishes to pursue intervention we can discuss it at that time and add him on for
tomorrow. Otherwise would favor conservative management. Will allow to eat today, and keep n.p.o. after midnight in case. Okay to ambulate.
--- NOTE | 2025-01-19 13:35 | PTCARENOTE ---
The patient voided 150ml of straw colored urine. I bladder scanned him for 303ml of residual urine. Instructed the patient to ring when he voids again so we can do a PVR.
--- NOTE | 2025-01-19 14:04 | W.PN.HOSP.TC ---
Today's Communication/Plan
-
Thorne placement
Hep ggt
Vascular convo for further interventions
Bicarb ggt
Assessment / Plan
Assessment / Plan
Physical Exam
General: Other (89y M in no acute distress.)
HEENT: Moist mucous membranes and PERRLA
Respiratory: Clear; No Wheezes, Rales or Rhonchi
Cardiac: S1/S2 and Regular Rhythm; No Murmur
GI: Soft, Non Tender, Non Distended and Normal Bowel Sounds
Musculoskeletal: Other (Edema of the entire RLE extending into the perineum / scrotum. Pos tenderness throughout the thigh / calf. R foot cool.)
Neuro: AO x 3
A/P: Patient is an 89y M with PMH significant for prostate cancer, bladder cancer and prior DVT who presents to ED complaining of pain and swelling in the RLE for about one week.
Extensive RLE DVT
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
- Admit for further evaluation and treatment.
- IV heparin
� Continue Omar bandage wrapping for now, reassess in the morning
� Vascular engaged for interventions although favoring conservative management at this point
� Will reengage tomorrow for possible catheter directed thrombolysis depending on patient's symptoms and wishes
- Has IVC filter in place from 2010.
- Will likely require lifelong anticoagulation following this second / extensive event.
CONY on CKD
Metabolic Acidosis
� Improved
� bicarbonate solution
� Continue to monitor
� Renal consulted
� No urinary symptoms
Mild bilateral hydronephrosis
�bladder scan - 300cc
-thorne placed
-urology f/u outpt
Benign Hypertension
- Hold usual meds acutely.
-stop OMAR
History of Gout
- Hold Uloric acutely.
Bladder Cancer
Prostate Cancer
- No active treatments / disease known.
- s/p XRT, TURBT, etc.
Hypodense hepatic lesion.
-F/u Abdominal ultrasound for further characterization outpt
Bilateral too small to characterize hypodense renal lesions likely benign cysts. Enlarged.
-f/u outpt
Moderate circumferential rectal wall thickening. New.
-likely related to previous radiation treatment.
Code Status: Full
Total time spent on today's encounter was 51 minutes which included time spent in counseling the patient/family regarding diagnosis and treatment plan as listed above, goals of care, and symptom management. Case was discussed with nursing staff,
specialists, and care coordinators/case management. All labs and imaging personally reviewed by me. Remainder the time spent in detailed review of previous records, lab data, imaging, and other medical provider documentation.
Anticipated Discharge: 24 - 48 hours
Subjective/Interval History
-
Date of Service: January 19, 2025
No acute events
Objective Data
-
Labs:
Laboratory Results
01/19/25 01/19/25
05:50 14:20
WBC 4.3 L
Hgb 11.2 L
Hct 31.8 L
Plt Count 93 L
APTT 65.2 H Pending
Sodium 138
Potassium 4.3
Chloride 109 H
Carbon Dioxide 22
BUN 72 H
Creatinine 2.3 H
Glucose 98
Calcium 8.9
Total Bilirubin 0.7
AST 20
ALT 14
Alkaline Phosphatase 108
Vital Signs:
Vital Signs
Temp Pulse Resp BP Pulse Ox
98.4 F 65 18 140/57 97
01/19/25 12:07 01/19/25 12:00 01/19/25 12:07 01/19/25 11:28 01/19/25 12:07
I&O
01/18/25 01/19/25 01/20/25
06:59 06:59 06:59
Intake Total 2308 / 2308
Output Total 1500 / 1500 675 / 675
Balance 808 / 808 - / -
Review of Systems
-
History Source: Patient
All other systems: Not reviewed unless documented
Data Reviewed
-
CT Scan: Report Reviewed by me
Ultrasound: Report Reviewed by me
Labs: Labs Reviewed by me
[2025-01-19] MEDS: SODIUM BICARBONATE 1075 MEQ IV (14:18)
--- NOTE | 2025-01-19 14:23 | PTCARENOTE ---
While the patient was trying to have a BM, he urinated in the toilet. His PVR was 283ml of urine. I explained to him that the greenhouse specialist wanted him to have a Macias catheter put in. The patient refused having the catheter put in. I let Dr. Lema
know the patient's wishes.
[2025-01-19 15:16] LABS: APTT 103.4 Sec (23.4-35.0)
[2025-01-19 16:07] VITALS: BP 144/62
--- NOTE | 2025-01-19 16:09 | W.PN.UPDATE ---
Update Note
Progress Note Update
PVR was 300cc
Pt and refused Thorne
reviewed with in person in detail
pt with h/o prostate ca and bladder cancer required interventions but had bad experience with thorne
so she wants to avoid thorne as much as possible
she does not recall if bilat hydro was present in the past
she is agreeable to see urology, TT sent to Dr Leonardo
keep monitr PVR
--- NOTE | 2025-01-19 17:13 | PTCARENOTE ---
Patient voided 225 donavan/straw colored urine. PVR was 215ml.
--- NOTE | 2025-01-19 18:07 | CONS.URO ---
Consultation
-
Date/Time Consultation Performed: 01/19/25 1800
Performing Provider: Peffer
Reason for Consultation: Hydronephrosis, Urinary retention
Medical History
History of Present Illness
89M history of prostate cancer treated with radiation in early with no recurrence since
States his last PSA was near zero sometime this year
History of secondary low grade superficial bladder cancer treated around 2012
Has had his cancer care at [place]
admitted for extensive DVT
Found to have CONY on CKD
Imaging showed new b/l hydroureteronephrosis
Bladder distended with elevated PVRs around 300cc
He has some voiding difficulty at night but not very bothered during the day
Somewhat slow stream in general
Has not had workup for any obstructive issues in the past that he can recall
No flank pain
No gross hematuria
No UTIs
No suprapubic pain
Patient refused thorne catheter recommended by nephrology/hospitalist
Urology consulted for hydro/retention
Past Medical History
Past Medical History: Other (prostate cancer, bladder cancer, DVT, Hypertension CKD III Gout)
Social History
Tobacco: Former Smoker
Alcohol: Occasional
Family History
Family History: Reviewed & Not Pertinent
Allergies/Home Medications
Allergies
Allergy/AdvReac Type Severity Reaction Status Date / Time
allopurinol Allergy Rash Verified 01/17/25 17:09
Home Medications
�Medication �Instructions �Recorded �Confirmed �Type
amlodipine 5 mg tablet 7.5 mg PO DAILY Blood Pressure 01/18/25 01/18/25 History
ezetimibe 10 mg tablet 10 mg PO DAILY High Cholesterol 01/18/25 01/18/25 History
febuxostat 40 mg tablet (Uloric) 40 mg PO DAILY Gout 01/18/25 01/18/25 History
lisinopril 20 mg tablet 20 mg PO DAILY Blood Pressure 01/18/25 01/18/25 History
Physical Exam
Vital Signs
Vital Signs
Temp Pulse Resp BP Pulse Ox
98.9 F 96 18 144/62 96
01/19/25 16:09 01/19/25 17:00 01/19/25 16:09 01/19/25 16:07 01/19/25 16:09
Lab / Testing Results
Laboratory Results
01/19/25 05:50
01/19/25 05:50
Physical Exam
General: Well Developed, Well Nourished and No Apparent Distress
Respiratory: Clear
GI: Soft, Non Tender and Non Distended
Genito-urinary: No Costovertebral Tend
Neuro: AO x 3
Psych: Calm and Intact Judgement
Assessment / Plan
-
89M hx of prostate cancer s/p radiation
bladder cancer s/p TURBT
No evidence of cancer recurrences on prior surveillance at [facility] and near zero PSA in 2024 per patient
Admitted with extensive DVT
Found to have CONY on CKD with new bilateral hydroureteronephrosis and urinary retention
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
- Recommended thorne catheter placement to decompress urinary tract and optimize renal function pending further workup/eval
- Due to past prior traumatic thorne placement ~10 years ago he refuses thorne catheter
- Patient also refuses any further workup or evaluation for any issues not directly related to his DVT
- Patient has capacity to make medical decisions and understands that failure to address obstructive uropathy in a timely manner can lead to permanent worsening of his renal function, infection, pain, electrolyte issues, etc
- Patient did agree to starting tamsulosin to possibly help bladder emptying
- Start 0.4mg daily
Provided my office contact information if he would like to see me outpatient for further management
Strongly recommended he reestablish care with a urologist
Please call with further questions
[2025-01-19 18:49] VITALS: BP 154/60
[2025-01-19 21:13] LABS: APTT 67.6 Sec (23.4-35.0)
[2025-01-19 23:16] VITALS: BP 166/63
--- NOTE | 2025-01-20 00:39 | PTCARENOTE ---
Received pt @ change of shift. AAOx3, VSS-- NSR w/ BBB, long QT, PVCs, PACs on monitor. Heparin gtt running @ 1100 units/hr and Bicarb running @ 75 mL/hr through left AC. Omar wrap on RLE ankle to hip. Spent about twenty minutes discussing events
from with day with pt. Pt verbalized frustration with nephrology getting involved in his care when he was here for his DVT. He feels it was an 'invasion of his privacy' and the CT results 'belong to him... he should get to decide who those results
go to.' He refuses thorne catheter, refuses further bladder scans for post residual voids, and refuses to initiate flomax when he will begin new coagulation medication tomorrow for the DVT. He wishes to 'take care of the reason he is here before
addressing another issue.' RN educated on importance of care and medication. Pt verbalizes understanding, but still refuses. RN educated pt on right to refuse. Discussed plan of care for evening. Pt verbalizes understanding. Call laurent within reach.
[2025-01-20] MEDS: SODIUM BICARBONATE 1075 MEQ IV (03:46)
[2025-01-20 03:57] VITALS: BP 142/50
[2025-01-20 04:20] LABS: Hematocrit 31.8 % (39.0-52.0); Hemoglobin 10.9 g/dL (13.0-18.0); Mean Corp Hgb Conc. 34.3 g/dL (33.0-37.0); Mean Corpuscular Volume 88.3 fL (80.0-94.0); Platelet Count 105 10^3/uL (130-400); Red Cell Dist. Width 13.6 % (11.5-14.5)
[2025-01-20 04:46] LABS: APTT 183.2 Sec (23.4-35.0)
[2025-01-20 05:02] LABS: ALT (SGPT) 15 U/L (0-50); AST (SGOT) 25 U/L (17-59); Albumin 3.5 g/dl (3.5-5.0); Alkaline Phosphatase 109 U/L (38-126); Blood Urea Nitrogen 57 mg/dl (9-20); Calcium 8.3 mg/dl (8.4-10.2); Carbon Dioxide 24 mmol/L (22-30); Chloride 109 mmol/L (98-107); Estimated Creatinine Clearance 23 ml/min; Glucose 121 mg/dl (70-99); Potassium 4.0 mmol/L (3.5-5.1); Sodium 139 mmol/L (135-145); Total Protein 6.0 g/dl (6.3-8.2); eGFR 29.90
[2025-01-20 07:39] VITALS: BP 151/62
--- NOTE | 2025-01-20 08:14 | W.PN.VS ---
Addendum entered and electronically signed by Trevor Sotelo MD 01/20/25 09:53:
Seen and examined with TAMIA Bender. Agree with findings as noted below. His right thigh and calf remains soft, still swollen compared to the left but all soft and compartments all soft. I again discussed alternatives of conservative management with
anticoagulation and compression versus catheter directed therapy for clot reduction. I discussed my leaning towards conservative management based on his age and risk factors. In addition, I reviewed his charting, and I do have concerns that he has
chronic renal insufficiency, he has a history of bladder/prostate issues and some urinary retention (which would increase his risk of traumatic thorne insertion and therefore potential risks of bleeding with tPA). Given all these factors, I feel the
risks outweigh the benefit here of an intervention. He is now in agreement with that plan. Therefore we will continue conservative strategies. Recommend anticoagulation (okay to transition to oral), compression therapy. Compression stocking
thigh-high 20 to 30 mm prescription left in chart by nurse practitioner. Please call with questions. Will sign off.
Original Note:
Today's Communication / Plan
-
Patient seen and examined with Dr. Trevor Sotelo, below plan reviewed with attending.
Assessment/Plan
-
89-year-old male here with extensive right lower extremity DVT to the level of his IVC filter
Plan:
Patient seen at bedside with Dr. Trevor Sotelo. Dr. Sotelo again reviewed extensively risk vs. benefits with patient and reviewed increased surgical risk given advanced age and CKD. Patient indicated that he and his discussed overnight and after
reviewing all options would like to pursue medical management.
Can transition to oral anticoagulation of primary team's choice
Recommend continued compression to RLE thigh high 20-30mmhg, script provided
We will sign off please call with questions or concerns
Subjective Data
-
Date of Service: January 20, 2025
Patient seen and examined at bedside, reports tolerating ambulation. He does note discomfort with ambulation but is not sure if that is from increased swelling or his chronic sciatica pain. He denies RLE worsening swelling.
Objective Data
-
Vital Signs
Temp Pulse Resp BP Pulse Ox
98.7 F 55 15 142/50 95
01/20/25 07:39 01/20/25 06:00 01/20/25 07:39 01/20/25 03:57 01/20/25 07:39
Intake and Output
01/19/25 01/20/25 01/21/25
06:59 06:59 06:59
Intake Total 2308 / 2308 1075 / 1075
Output Total 1500 / 1500 1375 / 1375 200 / 200
Balance 808 / 808 -300 / -300 -200 / -200
Intake:
IV fluids (Total) 2308 / 2308 1075 / 1075
1/2 NS with 75 meq bicarb 375 / 375
Heparin 108 / 108
Sterile Water For Injection 2200 / 2200 700 / 700
1000 ml 1,000 ml @ 100 mls/hr
IV .[id number] ОЛЬГА with Sodium
Bicarbonate 150 Meq Rx#:
[id number]
Output:
Urine, Voided 1500 / 1500 1375 / 1375 200 / 200
Other:
Number of approximated SMALL 1
amounts of urine
Lab Results
01/20/25 03:59
01/20/25 03:59
Calcium 8.3 mg/dl (8.4-10.2) L 01/20/25 03:59
Phosphorus 3.6 mg/dl (2.5-4.5) 01/19/25 05:50
Total Bilirubin 0.8 mg/dl (0.2-1.3) 01/20/25 03:59
AST 25 U/L (17-59) 01/20/25 03:59
ALT 15 U/L (0-50) 01/20/25 03:59
Alkaline Phosphatase 109 U/L (38-126) 01/20/25 03:59
Total Protein 6.0 g/dl (6.3-8.2) L 01/20/25 03:59
Albumin 3.5 g/dl (3.5-5.0) 01/20/25 03:59
Physical Exam
-
AO x 3
No tachypnea on room air
No tachycardia
Abdomen soft
Right leg with +1 pitting edema, soft, full range of motion
Bilateral feet warm and pink with palpable pulses
--- NOTE | 2025-01-20 10:57 | W.PN.NEPH.PH ---
Today's Communication / Plan
-
most of the care is now deferred to PCP as pt wishes
agreed to add sodium bicarb 650mg BID
BMP on Friday with PCP
no objection to d/c
Assessment/Plan
-
Impression:
CONY
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
Proteinuria
Gapped and predominantly non gapped metabolic acidosis (AG 13)
Right lower extremity extensive DVT
History of hypertension
History of prostate and bladder cancer status post TURBT/radiation
History of gout
Plan:
CONY:
cr seem returning to baseline 2.1 post contrast 01/18 likely out of window for MARIO
however bilat hydro is risk for future decline in renal function, infection and met acidosis
UA pyuria and U cx neg,UPCR Only 0.3gm/gm of cr
he is non oliguric, PVR 215cc, appt input
recommended flomax but pt will think about it
met acidosis is improving -probably will benefit from addition of sodium bicarb 650mg BID at d/c-pt agrees
given no real proteinuria likely lisinopril can be changed to alternate meds
no vasc intervention planned and switch to Eliquis-dose renally
BMP on Friday with his pcp
He wants to think over options with his PCP and make final call
He does not want f/u with nephro for now
detailed discussion with pt and at bedside
d/w primary too
PTH noted high-check vit D as out pt and replace as need through PCP
-
-
Date of Service: January 20, 2025
CC / HPI / ROS
-
Chief Complaint:
CONY with CKD
History of Present Illness:
cr better a2.1, non oliguric
on heparin gtt
met acidosis is better bicarb at 24
BP stable
plt better at 105
Review of Systems:
no cp or sob
no abd pain
right leg edema no change
Labs
-
Labs:
WBC 3.6 10^3/uL (4.8-10.8) L 01/20/25 03:59
RBC 3.60 10^6/uL (4.70-6.10) L 01/20/25 03:59
Hgb 10.9 g/dL (13.0-18.0) L 01/20/25 03:59
Hct 31.8 % (39.0-52.0) L 01/20/25 03:59
Plt Count 105 10^3/uL (130-400) L 01/20/25 03:59
Sodium 139 mmol/L (135-145) 01/20/25 03:59
Potassium 4.0 mmol/L (3.5-5.1) 01/20/25 03:59
Chloride 109 mmol/L (98-107) H 01/20/25 03:59
Carbon Dioxide 24 mmol/L (22-30) 01/20/25 03:59
BUN 57 mg/dl (9-20) H 01/20/25 03:59
Creatinine 2.1 mg/dL (0.7-1.3) H 01/20/25 03:59
eGFR 29.90 01/20/25 03:59
Glucose 121 mg/dl (70-99) H 01/20/25 03:59
Calcium 8.3 mg/dl (8.4-10.2) L 01/20/25 03:59
Phosphorus 3.6 mg/dl (2.5-4.5) 01/19/25 05:50
Albumin 3.5 g/dl (3.5-5.0) 01/20/25 03:59
Physical Exam
-
Vital Signs:
Vital Signs
Temp Pulse Resp BP Pulse Ox
98.7 F 55 15 142/50 95
01/20/25 07:39 01/20/25 06:00 01/20/25 07:39 01/20/25 03:57 01/20/25 07:39
Cardiovascular:: Regular rate and rhythm
Respiratory:: Bilateral: CTA
Lung Excursion:: Normal
Abdomen:: Nontender and Soft
Extremity Edema:: +3: Right: and None: Left:
Macias Catheter: No
[2025-01-20 11:57] VITALS: BP 136/60
--- NOTE | 2025-01-20 12:27 | W.PN.HOSP.TC ---
Addendum entered and electronically signed by Josh Machado MD 01/21/25 14:50:
[id number]
Original Note:
Today's Communication/Plan
-
Hypodense hepatic lesion. -F/u Abdominal ultrasound for further characterization outpt
Bilateral too small to characterize hypodense renal lesions likely benign cysts. Enlarged. -f/u outpt
Follow-up PCP, urology, nephrology, vascular outpatient
Initiate Eliquis therapeutic dosing
Tamsulosin
Sodium HCO3 650 mg twice daily
BMP on January 24
Assessment / Plan
Assessment / Plan
Physical Exam
General: Other (89y M in no acute distress.)
HEENT: Moist mucous membranes and PERRLA
Respiratory: Clear; No Wheezes, Rales or Rhonchi
Cardiac: S1/S2 and Regular Rhythm; No Murmur
GI: Soft, Non Tender, Non Distended and Normal Bowel Sounds
Musculoskeletal: Other (Edema of the entire RLE extending into the perineum / scrotum. Pos tenderness throughout the thigh / calf. R foot cool.)
Neuro: AO x 3
A/P: Patient is an 89y M with PMH significant for prostate cancer, bladder cancer and prior DVT who presents to ED complaining of pain and swelling in the RLE for about one week.
Extensive RLE DVT
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
- Admit for further evaluation and treatment.
- IV heparin�switch to Eliquis, therapeutic dosing
� After risks and benefits were weighed, patient and vascular are in agreement to continue with conservative strategies
� As mentioned, continue anticoagulation
� Compression stocking thigh-high 20 to 30 mmHg
� Follow-up vascular outpatient
- Has IVC filter in place from 2010. Defer to vascular if any continued need
- Follow-up hematology outpatient
CONY on CKD
Metabolic Acidosis
� Improved
� bicarbonate solution, transition to bicarbonate 650mg bid outpatient
� Monitor BMP - f/u Friday01/24/25
-F/u Nephro outpt
#Mild bilateral hydronephrosis
�bladder scan - 300cc
-refused thorne
-urology f/u outpt
-Flomax
Benign Hypertension
-stop ISABELLE, no proteinuria and with CKD with acidosis, hold
-F/u outpt
History of Gout
- Uloric
Bladder Cancer
Prostate Cancer
- No active treatments / disease known.
- s/p XRT, TURBT, etc.
Hypodense hepatic lesion.
-F/u Abdominal ultrasound for further characterization outpt
Bilateral too small to characterize hypodense renal lesions likely benign cysts. Enlarged.
-f/u outpt
Moderate circumferential rectal wall thickening. New.
-likely related to previous radiation treatment.
Code Status: Full
More than 30 minutes spent in discharge including
Final examination of the patient
Summarizing hospital stay
Instructions for continuing care to all relevant caregivers
Preparation of discharge records, prescriptions, and referral forms
Total time spent (in minutes): 36
Anticipated Discharge: Today
Subjective/Interval History
-
Date of Service: January 20, 2025
no acute events, opted for conservative management
Objective Data
-
Labs:
Laboratory Results
01/20/25 01/20/25
03:59 12:12
WBC 3.6 L
Hgb 10.9 L
Hct 31.8 L
Plt Count 105 L
APTT 183.2 H* Pending
Sodium 139
Potassium 4.0
Chloride 109 H
Carbon Dioxide 24
BUN 57 H
Creatinine 2.1 H
Glucose 121 H
Calcium 8.3 L
Total Bilirubin 0.8
AST 25
ALT 15
Alkaline Phosphatase 109
Vital Signs:
Vital Signs
Temp Pulse Resp BP Pulse Ox
98.7 F 92 16 151/62 94
01/20/25 12:01 01/20/25 11:00 01/20/25 12:01 01/20/25 07:39 01/20/25 12:01
I&O
01/19/25 01/20/25 01/21/25
06:59 06:59 06:59
Intake Total 2308 / 2308 1075 / 1075
Output Total 1500 / 1500 1375 / 1375 200 / 200
Balance 808 / 808 -300 / -300 -200 / -200
Review of Systems
-
History Source: Patient
All other systems: Not reviewed unless documented
Data Reviewed
-
CT Scan: Report Reviewed by me
Ultrasound: Report Reviewed by me
Labs: Labs Reviewed by me
[2025-01-20 12:33] LABS: APTT 46.9 Sec (23.4-35.0)
--- NOTE | 2025-01-20 12:34 | W.DS.TRANS ---
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
-
Discharge Instructions:
Discharge Diagnosis/Procedures
Extensive RLE DVT
Extensive thrombus formation in the IVC and
iliac veins as described above.
CONY on CKD
Metabolic Acidosis
Mild bilateral hydronephrosis
Diet Low Cholesterol,Low Fiber
Activity As tolerated
Blood Work cbc and bmp with pcp on FridayJanuary 24
Others Tests Hypodense hepatic lesion.
-F/u Abdominal ultrasound for further
characterization outpt
Bilateral too small to characterize hypodense
renal lesions likely benign cysts. Enlarged.
-f/u outpt
Mild bilateral hydronephrosis and bilateral
hydroureter.
-F/u outpt
Instructions:
Stand-Alone Forms:
Changes to Home Medications: Yes
Discharge Medications:
DC Medications w/original date entered in [facility]
amlodipine 5 mg tablet 7.5 mg PO DAILY Blood Pressure 01/18/25
ezetimibe 10 mg tablet 10 mg PO DAILY High Cholesterol 01/18/25
febuxostat 40 mg tablet (Uloric) 40 mg PO DAILY Gout 01/18/25
apixaban 5 mg tablet (Eliquis) 5 mg PO BID 30 days #60 tabs 01/20/25
apixaban 5 mg tablet (Eliquis) 10 mg (2 x 5 mg) PO BID #9 tabs 01/20/25
sodium bicarbonate 650 mg tablet 650 mg PO BID 30 days #60 tabs 01/20/25
tamsulosin 0.4 mg capsule 0.4 mg PO HS 30 days #30 caps 01/20/25
Home Medication Changes
apixaban 5 mg tablet (Eliquis) 5 mg PO BID 30 days #60 tabs 01/20/25
apixaban 5 mg tablet (Eliquis) 10 mg (2 x 5 mg) PO BID #9 tabs 01/20/25
sodium bicarbonate 650 mg tablet 650 mg PO BID 30 days #60 tabs 01/20/25
tamsulosin 0.4 mg capsule 0.4 mg PO HS 30 days #30 caps 01/20/25
Pending Results: No
--- NOTE | 2025-01-20 12:58 | CM ---
Pricing on Eliquis through the patient's [facility] is $125 for a 30 day. Patient is agreeable. I placed a ponce 30 day coupon in his red discharge folder
[2025-01-20] MEDS: HEPARIN 6300 UNITS IV (12:59)
--- NOTE | 2025-01-20 13:01 | PTCARENOTE ---
Pt platelets 105 today, Dr Machado aware. Pt denies pain, sat OOB in chair today, kirsten well.
[2025-01-20 15:11] VITALS: BP 143/111
[2025-01-20 15:13] VITALS: BP 153/81
== END 2025-01-20 17:35 | disposition home or self-care (01) | DRG 300 ==
LOC: IVU 01:11
PROVIDERS: Emergency Medicine; ADMITTING PHYSICIAN Hospitalist; ATTENDING PHYSICIAN Internal Medicine; CONSULT PHYSICIAN Specialist; CONSULT PHYSICIAN Urology; EMERGENCY PHYSICIAN Emergency Medicine; FAMILY PHYSICIAN Internal Medicine; OTHER PHYSICIAN Surgery Vascular Surgery
DX: I82.411 Acute embolism and thrombosis of right femoral vein (principal); E87.20 Acidosis, unspecified; N17.9 Acute kidney failure, unspecified; T82.868A Thrombosis due to vascular prosthetic devices, implants and grafts, initial encounter; N13.30 Unspecified hydronephrosis; I82.431 Acute embolism and thrombosis of right popliteal vein; I82.441 Acute embolism and thrombosis of right tibial vein; I12.9 Hypertensive chronic kidney disease with stage 1 through stage 4 chronic kidney disease, or unspecified chronic kidney disease; E78.00 Pure hypercholesterolemia, unspecified; N18.32 Chronic kidney disease, stage 3b; I82.423 Acute embolism and thrombosis of iliac vein, bilateral; M10.9 Gout, unspecified; K76.9 Liver disease, unspecified; Y71.2 Prosthetic and other implants, materials and accessory cardiovascular devices associated with adverse incidents; Z79.01 Long term (current) use of anticoagulants; Z92.3 Personal history of irradiation; Z87.891 Personal history of nicotine dependence; Z85.51 Personal history of malignant neoplasm of bladder; Z85.46 Personal history of malignant neoplasm of prostate; Z79.899 Other long term (current) drug therapy; Z88.8 Allergy status to other drugs, medicaments and biological substances
CPT/HCPCS: 74174; 76770; 80048; 80053; 81003; 81015; 82550; 82570; 83970; 84100; 84156; 85025; 85027; 85610; 85730; 87086; 93005; 93971; 96361; 96374; 99285; J7030; Q9967

== ENCOUNTER → 2025-01-25 11:46 | Outpatient (REF) | payer MEDICARE, BC, SELFPAY ==
[2025-01-25 12:33] LABS: ALT (SGPT) 27 U/L (0-50); AST (SGOT) 29 U/L (17-59); Albumin 3.5 g/dl (3.5-5.0); Alkaline Phosphatase 98 U/L (38-126); Blood Urea Nitrogen 35 mg/dl (9-20); Calcium 9.1 mg/dl (8.4-10.2); Carbon Dioxide 25 mmol/L (22-30); Chloride 109 mmol/L (98-107); Glucose 100 mg/dl (70-99); Potassium 4.3 mmol/L (3.5-5.1); Sodium 136 mmol/L (135-145); Total Protein 6.2 g/dl (6.3-8.2); eGFR 35.98
[2025-01-25 12:35] LABS: Hematocrit 33.3 % (39.0-52.0); Hemoglobin 10.9 g/dL (13.0-18.0); Mean Corp Hgb Conc. 32.7 g/dL (33.0-37.0); Mean Corpuscular Volume 91.0 fL (80.0-94.0); Platelet Count 156 10^3/uL (130-400); Red Cell Dist. Width 13.5 % (11.5-14.5)
[2025-01-25 13:43] LABS: Nucleated Red Blood Cells % 0 % (-)
== END ==
LOC: OLABPV 11:46
PROVIDERS: ATTENDING PHYSICIAN Internal Medicine
DX: I82.411 Acute embolism and thrombosis of right femoral vein (principal)
CPT/HCPCS: 36415; 80053; 85025

== ENCOUNTER → 2025-02-25 11:25 | Outpatient (REF) | payer MEDICARE, BC, SELFPAY ==
[2025-02-25 12:01] LABS: Hematocrit 39.0 % (39.0-52.0); Hemoglobin 12.8 g/dL (13.0-18.0); Mean Corp Hgb Conc. 32.8 g/dL (33.0-37.0); Mean Corpuscular Volume 90.1 fL (80.0-94.0); Nucleated Red Blood Cells % 0 % (-); Platelet Count 223 10^3/uL (130-400); Red Cell Dist. Width 13.2 % (11.5-14.5)
[2025-02-25 12:50] LABS: ALT (SGPT) 24 U/L (0-50); AST (SGOT) 25 U/L (17-59); Albumin 4.0 g/dl (3.5-5.0); Alkaline Phosphatase 126 U/L (38-126); Blood Urea Nitrogen 49 mg/dl (9-20); Calcium 9.9 mg/dl (8.4-10.2); Carbon Dioxide 24 mmol/L (22-30); Chloride 108 mmol/L (98-107); Glucose 109 mg/dl (70-99); Potassium 4.9 mmol/L (3.5-5.1); Sodium 140 mmol/L (135-145); Total Protein 7.3 g/dl (6.3-8.2); eGFR 31.71
[2025-02-25 13:19] LABS: Vitamin D, 25-OH*** 23.4 ng/mL (30-80)
== END ==
LOC: OLABPV 11:25
PROVIDERS: ATTENDING PHYSICIAN Internal Medicine
DX: I82.411 Acute embolism and thrombosis of right femoral vein (principal); N17.9 Acute kidney failure, unspecified; K76.9 Liver disease, unspecified; E55.9 Vitamin D deficiency, unspecified
CPT/HCPCS: 36415; 80053; 82306; 85025

== ENCOUNTER 2025-03-25 09:12 | Outpatient (REF) | payer MEDICARE, BC, SELFPAY | END 2025-03-25 23:59 | disposition home or self-care (01) | LOC: WOUND 09:12 | PROVIDERS: ATTENDING PHYSICIAN Surgery; FAMILY PHYSICIAN Internal Medicine | DX: L97.519 Non-pressure chronic ulcer of other part of right foot with unspecified severity (principal); L03.115 Cellulitis of right lower limb; I82.511 Chronic embolism and thrombosis of right femoral vein; N18.30 Chronic kidney disease, stage 3 unspecified; Z79.01 Long term (current) use of anticoagulants | CPT/HCPCS: G0463; 99205 ==

== ENCOUNTER 2025-03-25 14:38 | Inpatient (IN) | payer MEDICARE, BC, SELFPAY ==
[2025-03-25] VITALS (9 sets, daily range): BP systolic 123–164; BP diastolic 66–106; BMI 25.1; BMI 24.5
--- NOTE | 2025-03-25 11:39 | ED.GENMED ---
History of Present Illness
<Michele Dyson PA-C - Last Filed: 03/25/25 13:37>
General
Chief Complaint: Skin Problem
Source: patient and physician
Time Seen by Provider: 03/25/25 11:22
History of Present Illness
History of Present Illness:
89-year-old male with past medical history of hypertension, hyperlipidemia, previous prostate cancer, chronic renal insufficiency, recently admitted at this facility in January for extensive right lower extremity DVT (remains on Eliquis) presenting
to the ER from the wound care center for a large wound to the dorsum of the right foot. Patient states that after then he had been discharged from the hospital and then he started noticed a small blister forming on the dorsum of the right foot and
over time this blister got significantly bigger and worse, now with a large black eschar and odor. Patient notes intermittent pain associated with this but denies any paresthesias or history of neuropathy. Patient denies any fevers, chills, rigors
or any other new injuries sustained. Patient went to the wound care center for evaluation today and was referred to the ER with plan for admission and likely need for vascular consultation as well as podiatry.
Past History
<Michele Dyson PA-C - Last Filed: 03/25/25 13:37>
Past History
ED Past Medical History: HTN, Hypercholesterolemia, Other (Bladder and Prostate Cancer), Other (DVT right leg with IVC filter due to failure of treatment with Coumadin (2006)) and Other (Chronic Kidney Disease)
ED Past Surgical History: Tonsilectomy, Urological and Other (IVC Filter, Bladder Cancer surgery)
Social History
Tobacco: Non-smoker
Alcohol: None
Drug: None
Personal:
Living: with family
Review of Systems
<Michele Dyson PA-C - Last Filed: 03/25/25 13:37>
Review of Systems
All Other Systems: ROS reviewed and negative except as documented in HPI and ROS
Phy Exam
<Michele Dyson PA-C - Last Filed: 03/25/25 13:37>
Physical Exam
Physical Exam:
GENERAL: Alert , in no apparent distress
HEAD: Normocephalic atraumatic
EYE: conjunctiva clear
NECK: Supple
ENT: o/p clr, mmm.
CARDIAC: Regular rate and rhythm
LUNGS: Clear breath sounds bilaterally, no acute respiratory distress, no wheezes/rales/rhonchi
NEUROLOGICAL: Alert and oriented
SKIN: Warm and dry, there is a large wound traversing the dorsal aspect of the right foot from the distal second metatarsal to the distal fifth metatarsal, significant surrounding erythema, edema, ruborous. Digits are warm, cap refill is 2 to 3
seconds. Patient allows for range of motion of the digits still. The wound is significantly malodorous. Dry. Black eschar over top.
MUSCULOSKELETAL: Unable to palpate DP or PT pulses. I was able to find the PT pulse with Doppler but unable to find the DP pulse with Doppler
PSYCH: Normal and appropriate interaction.
Scores
<Michele Dyson PA-C - Last Filed: 03/25/25 13:37>
Heart Failure Risk
Heart Failure Risk Score: Not Applicable
Heart Score for Chest Pain Patients
STEMI patient?: Not applicable
Withdrawal Assessment of Alcohol
Withdrawal Assessment Completed?: Not applicable
Course
<Michele Dyson PA-C - Last Filed: 03/25/25 13:37>
Orders/Labs/Results
Orders:
Orders
03/25/25 11:37
Meropenem [Merrem] 500 mg IV NOW STA
03/25/25 11:41
Lower Ext Arterial & MAGGIE US [US Periph Art LOWER Ext w MAGGIE] Urgent
Comment:
Reason For Exam: large wound, diminished pulses
03/25/25 11:46
Sterile Water [Sterile Water For Injection] 10 ml .ROUTE .STK-MED ONE
03/25/25 11:49
Type+Screen Urgent
Basic Metabolic Panel Urgent
Complete Blood Count/With Diff Urgent
PTT Urgent
Prothrombin Time Urgent
03/25/25 12:[address] Non Medication Order As Directed
Physician Order: PTT 6 hours after initial start of Heparin infusion
Above order entered?: Yes
03/25/25 12:52
CR Foot - Right Min 3 Views Urgent
Comment:
Reason For Exam: wound, possible osteo
03/25/25 13:00
Heparin 69021 Units/250 ml 25,000 units in 250 ml IV PER PROTOCOL
Weight to be used for heparin protocol in kilograms (kg):: 72.5
Protocol:: Vascular Surgery
PTT Goal Range to be used:: PTT 73 to 111 seconds
Order type:: Initial
INITIAL Infusion Dose (UNITS/KG/hr) & then follow protocol:: 18 units/kg/hr
Infusion Dose in UNITS/hr & then follow protocol (UNITS/hr):: 1,300
INFUSION RATE in mL/hr & then follow protocol (mL/hr):: 13
PTT less than or equal to 64 seconds:: Notify Ordering Provider. obtain orders for rate increase &
possible bolus
PTT 64.1 to 72.9 seconds:: Increase rate by 100 units/hr (+ 1 mL/hr)
PTT 73 to 111 seconds:: Target Range. No change in rate.
PTT 111.1 to 130.9 seconds:: Decrease rate by 100 units/hr (- 1 mL/hr)
PTT 131 to 199.9 seconds:: HOLD for 1 hour. Then decrease rate by 200 units/hr (- 2 mL/hr)
PTT greater than or equal to 200 seconds:: STOP INFUSION. Notify Ordering provider to obtain further orders.
Lab follow-up:: Each change, PTT q6h until 2 consecutive are therapeutic. Then PTT
daily.
03/25/25 13:15
Heparin 4,000 units IV ONCE ONE
03/25/25 19:15
PTT Urgent
Abnormal Lab Results
03/25/25
11:49
RBC 4.61 L 10^6/uL
(4.70-6.10)
MCHC 32.4 L g/dL
(33.0-37.0)
Lymphocytes % 19.8 L %
(20.5-51.1)
PT 18.5 H Sec
(11.4-14.6)
APTT 39.8 H Sec
(23.4-35.0)
Chloride 111 H mmol/L
(98-107)
BUN 47 H mg/dl
(9-20)
Creatinine 1.9 H mg/dL
(0.7-1.3)
Glucose 124 H mg/dl
(70-99)
03/25/25 11:49
03/25/25 11:49
Vital Signs
Initial and Last Documented VS:
Initial Vital Signs
Temp Pulse Resp BP Pulse Ox
97.8 F 87 16 125/67 98
03/25/25 10:10 03/25/25 10:10 03/25/25 10:10 03/25/25 10:10 03/25/25 10:10
Last Documented Vital Signs
Temp Pulse Resp BP Pulse Ox
97.8 F 79 14 133/106 95
03/25/25 11:41 03/25/25 13:04 03/25/25 13:04 03/25/25 13:04 03/25/25 13:04
<Balta Ham, DO - Last Filed: 03/25/25 12:18>
Orders/Labs/Results
Orders:
Orders
03/25/25 11:37
Meropenem [Merrem] 500 mg IV NOW STA
03/25/25 11:41
Lower Ext Arterial & MAGGIE US [US Periph Art LOWER Ext w MAGGIE] Urgent
Comment:
Reason For Exam: large wound, diminished pulses
03/25/25 11:46
Sterile Water [Sterile Water For Injection] 10 ml .ROUTE .STK-MED ONE
03/25/25 11:49
Type+Screen Urgent
Basic Metabolic Panel Urgent
Complete Blood Count/With Diff Urgent
PTT Urgent
Prothrombin Time Urgent
03/25/25 12:[address] Non Medication Order As Directed
Physician Order: PTT 6 hours after initial start of Heparin infusion
Above order entered?: Yes
03/25/25 12:52
CR Foot - Right Min 3 Views Urgent
Comment:
Reason For Exam: wound, possible osteo
03/25/25 13:00
Heparin 28669 Units/250 ml 25,000 units in 250 ml IV PER PROTOCOL
Weight to be used for heparin protocol in kilograms (kg):: 72.5
Protocol:: Vascular Surgery
PTT Goal Range to be used:: PTT 73 to 111 seconds
Order type:: Initial
INITIAL Infusion Dose (UNITS/KG/hr) & then follow protocol:: 18 units/kg/hr
Infusion Dose in UNITS/hr & then follow protocol (UNITS/hr):: 1,300
INFUSION RATE in mL/hr & then follow protocol (mL/hr):: 13
PTT less than or equal to 64 seconds:: Notify Ordering Provider. obtain orders for rate increase &
possible bolus
PTT 64.1 to 72.9 seconds:: Increase rate by 100 units/hr (+ 1 mL/hr)
PTT 73 to 111 seconds:: Target Range. No change in rate.
PTT 111.1 to 130.9 seconds:: Decrease rate by 100 units/hr (- 1 mL/hr)
PTT 131 to 199.9 seconds:: HOLD for 1 hour. Then decrease rate by 200 units/hr (- 2 mL/hr)
PTT greater than or equal to 200 seconds:: STOP INFUSION. Notify Ordering provider to obtain further orders.
Lab follow-up:: Each change, PTT q6h until 2 consecutive are therapeutic. Then PTT
daily.
03/25/25 13:15
Heparin 4,000 units IV ONCE ONE
03/25/25 19:15
PTT Urgent
Abnormal Lab Results
03/25/25
11:49
RBC 4.61 L 10^6/uL
(4.70-6.10)
MCHC 32.4 L g/dL
(33.0-37.0)
Lymphocytes % 19.8 L %
(20.5-51.1)
PT 18.5 H Sec
(11.4-14.6)
APTT 39.8 H Sec
(23.4-35.0)
Chloride 111 H mmol/L
(98-107)
BUN 47 H mg/dl
(9-20)
Creatinine 1.9 H mg/dL
(0.7-1.3)
Glucose 124 H mg/dl
(70-99)
03/25/25 11:49
03/25/25 11:49
Vital Signs
Initial and Last Documented VS:
Initial Vital Signs
Temp Pulse Resp BP Pulse Ox
97.8 F 87 16 125/67 98
03/25/25 10:10 03/25/25 10:10 03/25/25 10:10 03/25/25 10:10 03/25/25 10:10
Last Documented Vital Signs
Temp Pulse Resp BP Pulse Ox
97.8 F 79 14 133/106 95
03/25/25 11:41 03/25/25 13:04 03/25/25 13:04 03/25/25 13:04 03/25/25 13:04
<Michele Dyson PA-C - Last Filed: 03/25/25 13:37>
MDM/Problems Addressed
Differential Diagnosis Includes:
PAD/PVD
Diabetic foot wound
Cellulitis
Abscess
Osteomyelitis
MDM/Problems Addressed:
89-year-old male presenting to the ER at the request of the wound care center for evaluation of a worsening wound to the dorsal aspect of the right foot since recently being admitted with a DVT to the same affected right lower extremity. The wound
appears significantly infected, malodorous with signs of peripheral vascular and arterial disease. I do have some concern that patient may require extensive surgical treatment including amputation depending on workup. Will order IV antibiotics and
discussed case with vascular as well as podiatry. Anticipate admission.
Chronic conditions affecting care: PVD and Kidney disease
Acute Exacerbation and/or Progression of Chronic Illness: PVD
<Michele Dyson PA-C - Last Filed: 03/25/25 13:37>
*Pulse Oximetry
SaO2: 98
Oxygen Mode of Delivery: Room air
Patient hypoxic: no
*Critical Care Note
Total Time (30-74mins, 75-104mins- exclusive of procedures): 32
comment:
Critical care statement: A total of 32 minutes of critical care time was provided for this patient. This includes management of unstable vital signs, evaluation of the patient at bedside, reviewing the patient's pertinent medical records, discussion
with consultants, review of old EKGs and review of pertinent medical records. This time with separate from time utilized to perform the aforementioned documented procedures
ED Attending Note
<Michele Dyson PA-C - Last Filed: 03/25/25 13:37>
-
Portions of this chart may have been created with voice recognition software.� Occasional wrong word or��sound alike� substitutions may have occurred due to the inherent limitations of voice recognition software.
<Balta Ham DO - Last Filed: 03/25/25 12:18>
ED Attending Note
Patient seen and examined by attending physician: Yes
I performed the substantive portion of visit, reviewed & personally made and approve the management plan that is documented in note by myself or SUMAN.: Yes
ED Attending Note:
I have seen and evaluated the patient with a [id number] encounter. I have spoken to the advance practicer provider and involved in the medical history, the physical exam, medical decision making.
Evaluation and management service: agree unless noted differently below.
Results interpretation: agree unless noted differently below.
Focused HPI: 89-year-old male presenting from the wound care center for evaluation of a wound to the dorsal aspect of his right foot.
Physical exam: Significant wound to the dorsal aspect of right foot with surrounding cellulitic changes. Decreased pulses distally.
Medical Decision Making: Will start antibiotics and discussed case with vascular. Patient will require admission
Discharge Plan
Departure
Patient Disposition: Admit
Date of Disposition: 03/25/25
Time of Disposition: 12:53
Presentation/result/management discussed w/ accepting MD/DO: Hospitalist
Discharge Problem:
Open wound of right foot, Peripheral arterial disease
Prescriptions:
No Action
amlodipine 5 mg Tablet
7.5 mg PO DAILY
ezetimibe 10 mg Tablet
10 mg PO DAILY
febuxostat [Uloric] 40 mg Tablet
40 mg PO DAILY
Eliquis 5 mg Tablet
5 mg PO BID 30 Days Qty: 60 0RF
Rx Instructions:
Can start this once 10mg BID dosing is completed
tamsulosin 0.4 mg Capsule
0.4 mg PO HS 30 Days Qty: 30 0RF
cholecalciferol (vitamin D3) [Vitamin D3] 25 mcg (1,000 unit) Tablet
25 mcg PO DAILY
Referrals:
Jaleel Arce MD [Family Provider, Internal Medicine]
Interventions
Interventions:
*Risk Screen - Suicide Last Done: 03/25/25 10:11
*General Assessment Last Done: 03/25/25 11:32
*Neglect/Abuse Screening Last Done: 03/25/25 10:11
*ED- Fall Risk Assessment Last Done: 03/25/25 11:32
*ED COVID-19 Vaccine History Last Done: 03/25/25 11:32
*ED Influenza Vaccine History Last Done: 03/25/25 11:32
ED-Skin Assessment Last Done: 03/25/25 12:03
Discharge Date and Time
Print Language: AZERI
[2025-03-25] MEDS: MERREM 500 MG IV (11:51)
[2025-03-25 12:03] LABS: Hematocrit 41.0 % (39.0-52.0); Hemoglobin 13.3 g/dL (13.0-18.0); Mean Corp Hgb Conc. 32.4 g/dL (33.0-37.0); Mean Corpuscular Volume 88.9 fL (80.0-94.0); Nucleated Red Blood Cells % 0 % (-); Platelet Count 202 10^3/uL (130-400); Red Cell Dist. Width 13.7 % (11.5-14.5)
[2025-03-25 12:13] LABS: INR 1.52; PT 18.5 Sec (11.4-14.6)
[2025-03-25 12:14] LABS: APTT 39.8 Sec (23.4-35.0)
[2025-03-25 12:20] LABS: Blood Urea Nitrogen 47 mg/dl (9-20); Calcium 10.0 mg/dl (8.4-10.2); Carbon Dioxide 22 mmol/L (22-30); Chloride 111 mmol/L (98-107); Estimated Creatinine Clearance 26 ml/min; Glucose 124 mg/dl (70-99); Potassium 4.7 mmol/L (3.5-5.1); Sodium 141 mmol/L (135-145); eGFR 33.72
--- NOTE | 2025-03-25 12:48 | CON.VAS ---
Medical History
-
Chief Complaint: Right foot necrotic wound
History of Present Illness:
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 Patient is presenting to the emergency room today for necrotic
right dorsal foot wound. Patient states he had a blister to the top of his foot during his admission January 17 to January 20 he noticed on February 12 that the blister had opened and there was a large wound malodorous with black eschar that started
to develop over the past 2 weeks with intermittent pain. He reports the surrounding erythema has been chronic to the foot since his admission for a DVT to that leg on January 17, 2025.
Pt seen at bedside in the ER with Dr Macias.
Past Medical History
Past Medical History: Other (Hypertension, CKD 3, gout, prostate cancer status post radiation, bladder cancer, right lower extremity DVT in 2006)
Past Surgical History: Other (IVC filter, TURBT, prostate seeds)
Social History
Tobacco: Former Smoker
Alcohol: Occasional
Drug: None
Family History
Family History: Reviewed & Not Pertinent
Allergies / Home Medications
Allergy/AdvReac Type Severity Reaction Status Date / Time
allopurinol Allergy Rash Verified 03/25/25 11:54
amoxicillin Allergy Hives Verified 03/25/25 11:54
�Medication �Instructions �Recorded �Confirmed �Type
amlodipine 5 mg tablet 7.5 mg PO DAILY Blood Pressure 01/18/25 01/18/25 History
ezetimibe 10 mg tablet 10 mg PO DAILY High Cholesterol 01/18/25 01/18/25 History
febuxostat 40 mg tablet (Uloric) 40 mg PO DAILY Gout 01/18/25 01/18/25 History
apixaban 5 mg tablet (Eliquis) 5 mg PO BID 30 days #60 tabs 01/20/25 Rx
apixaban 5 mg tablet (Eliquis) 10 mg (2 x 5 mg) PO BID #9 tabs 01/20/25 Rx
sodium bicarbonate 650 mg tablet 650 mg PO BID 30 days #60 tabs 01/20/25 Rx
tamsulosin 0.4 mg capsule 0.4 mg PO HS 30 days #30 caps 01/20/25 Rx
Review of Systems
-
History Source: Patient
All other systems: Negative unless noted
Constitutional: Reports No Symptoms
EENT: Reports No Symptoms
Respiratory: Reports No Symptoms
Cardiac: Reports No Symptoms
Vascular: Denies Leg Pain / Claudication
Abdomen/GI: Reports No Symptoms
: Reports No Symptoms
Musculoskeletal: Reports Edema
Skin: Reports Other (nonhealing right foot wound)
Neurological: Reports No Symptoms
Physical Exam
Vital Signs
Temp Pulse Resp BP Pulse Ox
97.8 F 78 15 155/66 97
03/25/25 11:41 03/25/25 12:00 03/25/25 12:00 03/25/25 12:00 03/25/25 12:00
Lab Results
03/25/25 11:49
03/25/25 11:49
Physical Exam
General: No Apparent Distress
HEENT: Normocephalic and Atraumatic
Respiratory: Non Labored Respirations
Cardiac: JVD
GI: Soft and Non Tender
Musculoskeletal: No Clubbing and Edema (R foot)
Skin: Warm and Other (erythema toes to ankle, large black dry open wound on dorsum of the foot, malodorous )
Neuro: Awake, Alert and Oriented
Psych: Calm
Pulses: Bilateral Femoral: +2, Left Dorsalis Pedis: +1, Left Posterior Tibial: +1 and Right Posterior Tibial: Doppler
Assessment / Plan
-
89 yo male with nonhealing right foot wound
Plan:
Admit
Heparin gtt
Nephrology consult
CTA runoff when cleared by renal
Will follow up with pt after scans complete
[2025-03-25] MEDS: HEPARIN 4000 UNITS IV (13:14)
[2025-03-25] MEDS: HEPARIN 25000 UNITS/250 ML IV (13:15)
--- NOTE | 2025-03-25 13:33 | HPS.HSE ---
Addendum entered and electronically signed by Lotus Cisneros MD 03/25/25 15:13:
This is an addendum to H&P written by Peyton Pruitt on 03/25/2025. Patient seen and examined independently with CLAIM PROCESSING SPECIALIST.
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
bladder cancer status post lesion removal and BCG here for wound of the right foot started over the past month that is foul-smelling. Redness and erythema of the leg. No fever.
Patient recently admitted for right lower extremity DVT and started Eliquis.
Vital signs normal. Labs show stable CKD 4.
Foot x-ray showed no abnormality. Arterial ultrasound showed diminished ABIs bilaterally worse in the right lower extremity.
Patient with PAD with chronic ischemia of the right lower leg with infected arterial ulcer. Meropenem started. Eliquis held and heparin drip started. Podiatry consulted. Vascular surgery consulted and recommended CTA abdomen aorta with runoff.
Nephrology consulted given CKD 4 and IV contrast necessary for CTA. They recommended bicarb drip.
Original Note:
Family Physician
-
Family Physician: Jaleel Arce
Chief Complaint
-
Right foot necrotic wound
History of Present Illness
89-year-old male from [place] where he lives with his Brenda who was recently admitted in January 17January 20, 2025 for extensive right lower extremity DVT currently on Eliquis 5 mg twice daily was sent to the ER by wound care
due to a large wound to the dorsal aspect of the right foot. Patient states he had a blister to the top of his foot during his admission January 17 to January 20 he noticed on February 12 that the blister had opened and there was a large wound
malodorous with black eschar that started to develop over the past 2 weeks with intermittent pain. He reports the surrounding erythema has been chronic to the foot since his admission for a DVT to that leg on January 17, 2025. He denies fever,
chills, injury, headache, sore throat, chest pain, palpitations, cough, shortness breath, abdominal pain, nausea, vomiting, diarrhea, urinary symptoms. He has past medical history of CKD 4, HTN, HLD, severe PAD/PVD, DVT right leg with IVC filter
due to failure of treatment Coumadin 2006, January 2025 extensive right lower extremity DVT on current Eliquis, bladder cancer status post bladder surgery,/BCG wash 2017, prostate cancer status post radiation [facility] 2007, former
smoker age [age].
Medical History
Past Medical History
Past Medical History: Reports Other
Additional Past Medical History:
Extensive DVT right lower extremity January 17, 2025
Severe PAD/PVD
Hypertension
CKD III
Gout
Prostate Cancer s/p XRT 2007 [facility]
Bladder Cancer status post removal lesion and BCG wash 2017
Prior RLE DVT failure on Coumadin
Past Surgical History: Reports Other
Additional Past Surgical History:
Prostate Seeds
TURBT
IVC Filter Placement
Social History
Tobacco: Former Smoker
Alcohol: Occasional
Drug: None
Family History
Family History: Not pertinent
Allergies / Home Medications
Allergies reflects when Allergies were last updated in [employer].
Home Medications with original date entered in [employer]
Allergy/Medication List:
Allergies
Allergy/AdvReac Type Severity Reaction Status Date / Time
allopurinol Allergy Rash Verified 03/25/25 11:54
amoxicillin Allergy Hives Verified 03/25/25 11:54
Home Medications
amlodipine 5 mg tablet 7.5 mg PO DAILY Blood Pressure 01/18/25
ezetimibe 10 mg tablet 10 mg PO DAILY High Cholesterol 01/18/25
febuxostat 40 mg tablet (Uloric) 40 mg PO DAILY Gout 01/18/25
apixaban 5 mg tablet (Eliquis) 5 mg PO BID 30 days #60 tabs 01/20/25
tamsulosin 0.4 mg capsule 0.4 mg PO HS 30 days #30 caps 01/20/25
cholecalciferol (vitamin D3) 25 mcg (1,000 unit) tablet (Vitamin D3) 25 mcg PO DAILY Supplement 03/25/25
Review of Systems
-
History Source: Patient and Family ( Brenda)
A 12 point ROS was completed and negative except as noted: Yes
Constitutional: Denies Fever or Chills
EENT: Denies Sore Throat or Runny Nose
Respiratory: Denies Cough or Trouble Breathing
Cardiac: Denies Chest Pain, Diaphoresis, Palpitations or Syncope
Abdomen/GI: Denies Abdominal Pain, Nausea, Vomiting, Diarrhea, Constipated or Bloody Stools
: Denies Dysuria, Frequency, Flank Pain, Incontinence, Difficulty Voiding or Urgency
Musculoskeletal: Reports Other (Large dorsal wound with black eschar, malodorous, surrounding erythema foot to ankle patient reports erythema has been since January 17); Denies Joint Pain
Skin: Denies Itching or Rash
Neurological: Denies Dizzy or Headache
Endocrine: Reports No Symptoms
Hematologic/Lymphatic: Reports No Symptoms
Psych: Reports Calm
Physical Exam
Vital Signs
Vital Signs
Temp Pulse Resp BP Pulse Ox
97.8 F 79 14 133/106 95
03/25/25 11:41 03/25/25 13:04 03/25/25 13:04 03/25/25 13:04 03/25/25 13:04
Physical Exam
General: Conversant; No Fever or Chills
HEENT: NormoCephalic, Anicteric, Moist mucous membranes, [place] Conjunctivae and No Ptosis
Respiratory: Clear; No Wheezes, Rales or Rhonchi
Cardiac: S1/S2 and Regular Rhythm; No Murmur, Rub, Gallop or Peripheral Edema
GI: Soft, Non Tender, Non Distended, Normal Bowel Sounds and No Hepatosplenomegaly
Rectal: Deferred by Provider
Genito-urinary: Deferred by me
Musculoskeletal: No Clubbing, No Cyanosis and Edema, Right Lower Extremity (Large dorsal wound with black eschar, malodorous, surrounding erythema foot to ankle patient reports erythema has been since January 17); No Edema, Left Upper Extremity,
Edema, Right Upper Extremity or Edema, Left Lower Extremity
Skin: Warm, Dry and Other (Large dorsal wound with black eschar, malodorous, surrounding erythema foot to ankle patient reports erythema has been since January 17); No Rash
Neuro: AO x 3, No Motor Deficits, Nonfocal/grossly intact, Cranial Nerves Intact and No Sensory Deficits; No Slurred Speech, Facial Droop, Tremors or Sedated
Psych: Calm
Laboratory Results
-
03/25/25 11:49
03/25/25 11:49
Laboratory Results
PT 18.5 Sec (11.4-14.6) H 03/25/25 11:49
INR 1.52 03/25/25 11:49
APTT 39.8 Sec (23.4-35.0) H 03/25/25 11:49
Data Reviewed
-
Diagnostic Radiology: Report Reviewed by me
Lab Data: Labs Reviewed by me
Impression/Plan
-
Impression/plan:
Admit to MedSurg
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
#History of RIGHT leg DVT Dx January 17, 2025 on Eliquis
#History PAD/PVD�severe
#DVT right leg with IVC filter due to failure of treatment Coumadin 2006
- Follows with Dr. Alexander
- Consult Vascular surgery�Dr. Colleen armendariz
-Consult Dr. Keller podiatry
- IV Heparin bolus with drip
-Hold Eliquis 5 mg twice daily
- Check CTA-coordinate with nephrology given CKD
- arterial study pending
- IV meropenem 500 mg every 12 hours renal dosing
X-ray right foot: No acute osseous abnormality mild degenerative change
Arterial study: RIGHT LOWER EXTREMITY: MAGGIE severely reduced at 0.37. Toe pressure 0. Arterial duplex examination reveals monophasic waveforms in the common femoral artery suggesting the
presence of iliac inflow disease. The profunda femoral artery appears to be occluded. Monophasic continuous waveforms are demonstrated throughout the superficial femoral artery and popliteal
artery.
Monophasic continuous Doppler waveforms are demonstrated in the posterior tibial artery and dorsalis pedis artery.
LEFT LOWER EXTREMITY: MAGGIE mildly reduced at 0.79. TBI within normal limits at 0.92. Arterial duplex examination reveals multiphasic waveforms in the common femoral artery, profunda femoral
artery and proximal superficial femoral artery. There is a transition to monophasic waveforms in the mid superficial femoral artery. There is a focal velocity elevation of 220 cm/s in the distal
superficial femoral artery (ratio 2.6) consistent with at least greater than 50% stenosis at this location. Heavily calcified plaque is identified at this location. Monophasic continuous Doppler
waveforms are demonstrated in the posterior tibial artery and dorsalis pedis artery.
#CKD 4
Creat 1.9 appears baseline, CrCl 26
-Consult nephrology was seen at bedside by Dr. Larisa Sanchez for CTA
-Will give post fluids IV bicarb 150 mEq
Follow BMP
#HTN
BP 150/78
-Continue amlodipine 7.5 mg daily
#HLD
-Continue ezetimibe 10 mg daily
#Gout
-Continue Uloric 40 mg daily
#BPH
History of prostate cancer status post radiation [facility] 2007
-Continue Flomax 0.4 mg at bedtime
#Bladder CA 2018 status post lesion removal and BCG wash
DVT prophylaxis
Hold Eliquis continue IV heparin drip
DNR per patient with Brenda at bedside
--- NOTE | 2025-03-25 14:18 | W.CON.NEPH ---
Consultation
-
Date/Time Consultation Requested: March 25, 2025 at 1 PM
Date/Time Consultation Performed: March 25, 2025 at 2 PM
Requesting Provider: Peyton Pruitt
Performing Provider: Dr. Peres
Reason for Consultation: Acute on chronic kidney disease
Medical History
-
Chief Complaint: Chronic kidney disease stage IV
History of Present Illness:
The patient is a 89-year-old male with a past medical history of chronic kidney disease stage IIIb who normally maintains a creatinine in the low twos. He has a prior history of hypertension He also has a history of prostate cancer and has
undergone previous TURBT and radiation therapy. 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 History of DVT diagnosed a few months ago.
He presents to the emergency room with a nonhealing right lower extremity wound on his foot.
Renal consultation for acute on chronic kidney disease with baseline renal 1.9 and MARIO prevention will require CTA
Past Medical History
Hypertension
CKD IIIb (2.1)
Gout
Prostate Cancer s/p XRT and TURBT
Bladder Cancer
Prior RLE DVT (2006)
IVC filter placement
Social History
Tobacco: Former Smoker
Alcohol: Occasional
Drug: None
Family History
Family History: Not Pertinent
Allergies / Home Medications
Allergy/AdvReac Type Severity Reaction Status Date / Time
allopurinol Allergy Rash Verified 03/25/25 11:54
amoxicillin Allergy Hives Verified 03/25/25 11:54
�Medication �Instructions �Recorded �Confirmed �Type
amlodipine 5 mg tablet 7.5 mg PO DAILY Blood Pressure 01/18/25 03/25/25 History
ezetimibe 10 mg tablet 10 mg PO DAILY High Cholesterol 01/18/25 03/25/25 History
febuxostat 40 mg tablet (Uloric) 40 mg PO DAILY Gout 01/18/25 03/25/25 History
apixaban 5 mg tablet (Eliquis) 5 mg PO BID 30 days #60 tabs 01/20/25 03/25/25 Rx
tamsulosin 0.4 mg capsule 0.4 mg PO HS 30 days #30 caps 01/20/25 03/25/25 Rx
cholecalciferol (vitamin D3) 25 25 mcg PO DAILY Supplement 03/25/25 03/25/25 History
mcg (1,000 unit) tablet (Vitamin
D3)
Review of Systems
-
No chest pain or shortness of breath
All other systems: Negative unless noted
Physical Exam
Vital Signs
Vital Signs
Temp Pulse Resp BP Pulse Ox
97.8 F 81 13 143/71 97
03/25/25 11:41 03/25/25 14:00 03/25/25 14:00 03/25/25 14:00 03/25/25 13:52
Lab Results
WBC 6.1 10^3/uL (4.8-10.8) 03/25/25 11:49
RBC 4.61 10^6/uL (4.70-6.10) L 03/25/25 11:49
Hgb 13.3 g/dL (13.0-18.0) 03/25/25 11:49
Hct 41.0 % (39.0-52.0) 03/25/25 11:49
Plt Count 202 10^3/uL (130-400) 03/25/25 11:49
Sodium 141 mmol/L (135-145) 03/25/25 11:49
Potassium 4.7 mmol/L (3.5-5.1) 03/25/25 11:49
Chloride 111 mmol/L (98-107) H 03/25/25 11:49
Carbon Dioxide 22 mmol/L (22-30) 03/25/25 11:49
BUN 47 mg/dl (9-20) H 03/25/25 11:49
Creatinine 1.9 mg/dL (0.7-1.3) H 03/25/25 11:49
eGFR 33.72 03/25/25 11:49
Glucose 124 mg/dl (70-99) H 03/25/25 11:49
Calcium 10.0 mg/dl (8.4-10.2) 03/25/25 11:49
Physical Exam
General no acute distress
HEENT no cephalic atraumatic extraocular muscle intact no scleral icterus no JVD neck supple
lungs clear to auscultation bilateral
heart regular S1-S2 positive
abdomen soft nontender positive bowel sounds
extremities no edema pulses present bilateral
Neurologically nonfocal alert and oriented x 3
Skin right foot wound
Psych normal affect no bizarre behavior
Data Reviewed
-
Labs: Labs Reviewed by me, Discussed with Nurse, Discussed with Patient and Discussed with Family
Assessment/Plan
-
Impression:
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
Proteinuria
Right foot wound rule out osteomyelitis
Right lower extremity extensive DVT
History of hypertension
History of prostate and bladder cancer status post TURBT/radiation
History of gout
Plan:
Creatinine appears to be at baseline. He is at risk for contrast-induced nephropathy as discussed with him and his at the bedside. He has had contrast before and developed CONY with a creatinine peaking at 3 but improved.
CTA ordered he being seen by vascular and podiatry.
Antibiotics renal dosed.
Rule out osteomyelitis.
Ordered bicarbonate prophylaxis pre and post CAT scan.
Discussed with nurse practitioner in the emergency room.
--- NOTE | 2025-03-25 15:44 | EDCM ---
CM reviewed chart and met with pt bedside in ED. Lives with his in 1 story [facility] at [facility], no [facility].
Independent in ADLs, personal care and ambulation at baseline. No assistive devices, no DME in home.
Confirms prescription coverage.
Recent [facility], was just discharged Friday, no hx SNF
PCP: Jaleel Arce
Pharmacy: [facility] [address] and [facility]. Prescription coverage currently through [employer]
Anticipate discharge home, possibly with [facility], CM will continue to follow for all discharge planning needs.
--- NOTE | 2025-03-25 17:33 | PTCARENOTE ---
Per MD Larisa peter to administer sodium bicarb 219 ml/ hr for [address] will continue to monitor.
[2025-03-25] MEDS: SODIUM BICARBONATE 1150 MEQ IV (17:36)
--- NOTE | 2025-03-25 18:17 | W.PN.UPDATE ---
Addendum entered and electronically signed by Ignacio Light DPM 03/25/25 18:26:
89M presents with R dorsal foot eschar, no acute clinical signs of infection
- plan pending vascular recommendation
- no intervention at this time
- LWC rendered, betadine paint, dsd
- wbat
- no abx
- will monitor while inpatient
Original Note:
Update Note
Progress Note Update
89M presents with L dorsal foot eschar, no acute clinical signs of infection
- plan pending vascular recommendation
- no intervention at this time
- LWC rendered, betadine paint, dsd
- wbat
- no abx
- will monitor while inpatient
--- NOTE | 2025-03-25 18:38 | PTCARENOTE ---
sodium bicarb stopped per MD Larisa nelson
[2025-03-25 20:50] LABS: APTT > 200 Sec (23.4-35.0)
[2025-03-25] MEDS: FLOMAX 0.4 MG PO (21:49)
[2025-03-25 22:21] LABS: APTT 87.5 Sec (23.4-35.0)
[2025-03-26] MEDS: STERILE WATER FOR INJECTION 10 ML IV ×2 (01:45→14:00)
[2025-03-26] MEDS: MERREM 500 MG IV ×2 (01:45→14:00)
[2025-03-26 04:35] LABS: Hematocrit 35.6 % (39.0-52.0); Hemoglobin 12.2 g/dL (13.0-18.0); Mean Corp Hgb Conc. 34.3 g/dL (33.0-37.0); Mean Corpuscular Volume 87.3 fL (80.0-94.0); Nucleated Red Blood Cells % 0 % (-); Platelet Count 182 10^3/uL (130-400); Red Cell Dist. Width 13.3 % (11.5-14.5)
[2025-03-26 04:48] LABS: APTT 110.2 Sec (23.4-35.0)
[2025-03-26 04:57] LABS: ALT (SGPT) 22 U/L (0-50); AST (SGOT) 21 U/L (17-59); Albumin 3.6 g/dl (3.5-5.0); Alkaline Phosphatase 125 U/L (38-126); Blood Urea Nitrogen 40 mg/dl (9-20); Calcium 9.6 mg/dl (8.4-10.2); Carbon Dioxide 20 mmol/L (22-30); Chloride 113 mmol/L (98-107); Estimated Creatinine Clearance 29 ml/min; Glucose 119 mg/dl (70-99); Magnesium 2.1 mg/dl (1.6-2.3); Potassium 4.1 mmol/L (3.5-5.1); Sodium 140 mmol/L (135-145); Total Protein 6.7 g/dl (6.3-8.2); eGFR 38.53
[2025-03-26 07:40] VITALS: BP 158/84
[2025-03-26] MEDS: ZETIA 10 MG PO (07:57)
[2025-03-26] MEDS: NORVASC 7.5 MG PO (07:57)
[2025-03-26] MEDS: VITAMIN D3 (cholecalciferol) 25 MCG PO (07:58)
--- NOTE | 2025-03-26 08:53 | W.PN.HOSP.TC ---
Today's Communication/Plan
-
Continue heparin drip
Vascular surgery consult
Assessment / Plan
Assessment / Plan
89y M with h/o prostate cancer, bladder cancer and prior DVT, PAD with chronic ischemia of the right lower leg p/w infected arterial ulcer.
R foot necrotic wound
CTA abdomen aorta with runoff
Vascular surgery consulted
Podiatry consulted
IV meropenem
Hold Eliquis and placed on heparin drip instead
Extensive RLE DVT
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
Hold Eliquis and placed on heparin drip instead
CKD
Nephrology consulted and recommending bicarbonate for MARIO prevention for IV contrast
Benign Hypertension
BP controlled, continue amlodipine
History of Gout
- Uloric
Bladder Cancer
Prostate Cancer
- No active treatments / disease known.
- s/p XRT, TURBT, etc.
DVT ppx
hep gtt
Code Status: Full
Anticipated Discharge: > 48 hours
Subjective/Interval History
-
Date of Service: March 26, 2025
Patient denies any acute issues overnight, no chest pain, fevers, chills, shortness of breath, leg pain is controlled. at bedside
Objective Data
-
Labs:
Laboratory Results
03/25/25 03/26/25 03/26/25
22:04 04:02 04:16
WBC 5.3
Hgb 12.2 L
Hct 35.6 L
Plt Count 182
APTT 87.5 H 110.2 H
Sodium 140
Potassium 4.1
Chloride 113 H
Carbon Dioxide 20 L
BUN 40 H
Creatinine 1.7 H
Glucose 119 H
Calcium 9.6
Total Bilirubin 0.8
AST 21
ALT 22
Alkaline Phosphatase 125
Vital Signs:
Vital Signs
Temp Pulse Resp BP Pulse Ox
98 F 67 16 158/84 96
03/26/25 07:40 03/26/25 07:57 03/26/25 07:40 03/26/25 07:57 03/26/25 07:40
I&O
03/25/25 03/26/25 03/27/25
06:59 06:59 06:59
Intake Total 365 / 365
Output Total 950 / 950
Balance -585 / -585
Review of Systems
-
All other systems: Reviewed and negative
Physical Exam
-
General: No Apparent Distress
HEENT: Moist Mucous Membranes, Anicteric and PERRLA
Respiratory: Clear to Auscultation; Negative Wheezes, Rales or Rhonchi
Cardiac: Regular Rhythm and S1/S2; Negative Murmur, Rub or Gallop
GI: Soft, Nontender, Nondistended and Normal Bowel Sounds
Musculoskeletal: No Edema and Other (Right foot in dressing)
Skin: Warm and Dry; Negative Rash, Ulcers or Lesions
Neuro: Awake and AO x 3
Hematologic / Lymphatic: No Lymphadenopathy
Psych: Calm
Data Reviewed
-
CT Scan: Report Reviewed by me
Ultrasound: Report Reviewed by me
Labs: Labs Reviewed by me and Discussed with Patient
[2025-03-26] MEDS: ULORIC 40 MG PO (10:06)
[2025-03-26 10:27] VITALS: BP 147/69; PULSE 76; O2SAT 98
--- NOTE | 2025-03-26 10:46 | W.PN.NEPH.PH ---
Today's Communication / Plan
-
AM lab
Assessment/Plan
-
Impression:
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
Proteinuria
Right foot wound rule out osteomyelitis-CT scan 03/25 occlusion of the right external iliac artery with reconstitution at the level of the right common femoral artery.
Right lower extremity extensive DVT
History of hypertension
History of prostate and bladder cancer status post TURBT/radiation
History of gout
Plan:
Creatinine appears to be at baseline. Remained stable status post contrast 03/25
Antibiotics renal dosed.
No signs of osteo= no intervention per podiatry
Status post CTA with occlusion pending vascular recommendation
-
-
Date of Service: March 26, 2025
CC / HPI / ROS
-
Chief Complaint:
Foot infection
History of Present Illness:
Acute on chronic kidney disease requiring IV contrast for evaluation vasculature
Review of Systems:
No chest pain or shortness of breath
Nonoliguric
Labs
-
Labs:
WBC 5.3 10^3/uL (4.8-10.8) 03/26/25 04:02
RBC 4.08 10^6/uL (4.70-6.10) L 03/26/25 04:02
Hgb 12.2 g/dL (13.0-18.0) L 03/26/25 04:02
Hct 35.6 % (39.0-52.0) L 03/26/25 04:02
Plt Count 182 10^3/uL (130-400) 03/26/25 04:02
Sodium 140 mmol/L (135-145) 03/26/25 04:02
Potassium 4.1 mmol/L (3.5-5.1) 03/26/25 04:02
Chloride 113 mmol/L (98-107) H 03/26/25 04:02
Carbon Dioxide 20 mmol/L (22-30) L 03/26/25 04:02
BUN 40 mg/dl (9-20) H 03/26/25 04:02
Creatinine 1.7 mg/dL (0.7-1.3) H 03/26/25 04:02
eGFR 38.53 03/26/25 04:02
Glucose 119 mg/dl (70-99) H 03/26/25 04:02
Calcium 9.6 mg/dl (8.4-10.2) 03/26/25 04:02
Phosphorus 3.7 mg/dl (2.5-4.5) 03/26/25 04:02
Albumin 3.6 g/dl (3.5-5.0) 03/26/25 04:02
Physical Exam
-
Vital Signs:
Vital Signs
Temp Pulse Resp BP Pulse Ox
98 F 67 16 158/84 96
03/26/25 07:40 03/26/25 07:57 03/26/25 07:40 03/26/25 07:57 03/26/25 07:40
Cardiovascular:: Regular rate and rhythm
Respiratory:: Bilateral: CTA
Lung Excursion:: Normal
Abdomen:: Nontender and Soft
Extremity Edema:: None: Bilateral:
[place] Catheter: No
[2025-03-26] MEDS: HEPARIN 25000 UNITS/250 ML IV (11:32)
[2025-03-26 11:44] VITALS: BP 147/69; PULSE 74; O2SAT 98
[2025-03-26] MEDS: FLOMAX 0.4 MG PO (21:57)
[2025-03-26 22:33] VITALS: BP 135/70
[2025-03-27] MEDS: MERREM 500 MG IV (02:40)
[2025-03-27] MEDS: STERILE WATER FOR INJECTION 10 ML IV (02:40)
[2025-03-27 07:30] VITALS: BP 166/82
[2025-03-27] MEDS: VITAMIN D3 (cholecalciferol) 25 MCG PO (07:44)
[2025-03-27] MEDS: ZETIA 10 MG PO (07:44)
[2025-03-27] MEDS: NORVASC 7.5 MG PO (07:47)
[2025-03-27 07:55] LABS: Hematocrit 35.5 % (39.0-52.0); Hemoglobin 12.0 g/dL (13.0-18.0); Mean Corp Hgb Conc. 33.8 g/dL (33.0-37.0); Mean Corpuscular Volume 85.5 fL (80.0-94.0); Nucleated Red Blood Cells % 0 % (-); Platelet Count 153 10^3/uL (130-400); Red Cell Dist. Width 13.4 % (11.5-14.5)
[2025-03-27 08:02] LABS: APTT 84.4 Sec (23.4-35.0)
[2025-03-27 08:19] LABS: ALT (SGPT) 19 U/L (0-50); AST (SGOT) 22 U/L (17-59); Albumin 3.5 g/dl (3.5-5.0); Alkaline Phosphatase 124 U/L (38-126); Blood Urea Nitrogen 36 mg/dl (9-20); Calcium 9.3 mg/dl (8.4-10.2); Carbon Dioxide 23 mmol/L (22-30); Chloride 112 mmol/L (98-107); Estimated Creatinine Clearance 26 ml/min; Glucose 113 mg/dl (70-99); Potassium 4.0 mmol/L (3.5-5.1); Sodium 142 mmol/L (135-145); Total Protein 6.3 g/dl (6.3-8.2); eGFR 33.72
[2025-03-27] MEDS: ULORIC 40 MG PO (09:45)
[2025-03-27] MEDS: TYLENOL 650 MG PO ×2 (09:47→22:35)
[2025-03-27] MEDS: HEPARIN 25000 UNITS/250 ML IV (09:48)
--- NOTE | 2025-03-27 11:31 | W.PN.HOSP.TC ---
Addendum entered and electronically signed by Enedina Villegas MD 03/27/25 17:40:
correction to error below
cardiology preoperative risk stratification
Original Note:
Today's Communication/Plan
-
Continue heparin drip
tylenol for pain control at pts request
Vascular surgery recommendations
Cardiology consult for preop risk strat
Assessment / Plan
Assessment / Plan
89y M with h/o prostate cancer, bladder cancer and prior DVT, PAD with chronic ischemia of the right lower leg p/w infected arterial ulcer.
R foot necrotic wound
CTA abdomen aorta with runoff shows Occlusion of the right external iliac artery with reconstitution at the level of the right common femoral artery. No flow is appreciated along the course of the right anterior tibial artery.
Vascular surgery consulted, d/w Dr. Canales will review with Dr. Sotelo for OR plan. They request cardiology preoperative for strep, consulted Dr. Ruiz.
Podiatry consulted -they recommend no antibiotics. No intervention planned at this time.
IV meropenem discontinued per podiatry rec
Hold Eliquis and placed on heparin drip instead
Extensive RLE DVT
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
Hold Eliquis and placed on heparin drip instead
CKD
Nephrology consulted and recommending bicarbonate for MARIO prevention for IV contrast. Monitor creatinine, 1.9 today.
Benign Hypertension
BP controlled, continue amlodipine
History of Gout
- Uloric
Bladder Cancer
Prostate Cancer
- No active treatments / disease known.
- s/p XRT, TURBT, etc.
DVT ppx
hep gtt
Code Status: Full
Anticipated Discharge: > 48 hours
Subjective/Interval History
-
Date of Service: March 27, 2025
Patient had some worsening right foot pain last night secondary to the tight sock. No complaints at the moment. His is at bedside. We had a discussion about his potential OR plans, patient is scared that he would be recommended to have an
amputation, which he vehemently opposes, due to the impact will have on his quality of life. He would prefer revascularization options.
Objective Data
-
Labs:
Laboratory Results
03/27/25
07:18
WBC 5.0
Hgb 12.0 L
Hct 35.5 L
Plt Count 153
APTT 84.4 H
Sodium 142
Potassium 4.0
Chloride 112 H
Carbon Dioxide 23
BUN 36 H
Creatinine 1.9 H
Glucose 113 H
Calcium 9.3
Total Bilirubin 0.5
AST 22
ALT 19
Alkaline Phosphatase 124
Vital Signs:
Vital Signs
Temp Pulse Resp BP Pulse Ox
97.9 F 92 18 166/82 97
03/27/25 07:30 03/27/25 07:30 03/27/25 07:30 03/27/25 07:47 03/27/25 07:30
I&O
03/26/25 03/27/25 03/28/25
06:59 06:59 06:59
Intake Total 365 / 365 480 / 480
Output Total 950 / 950 550 / 550
Balance -585 / -585 -70 / -70
Review of Systems
-
All other systems: Reviewed and negative
Physical Exam
-
General: No Apparent Distress
HEENT: Moist Mucous Membranes, Anicteric and PERRLA
Respiratory: Clear to Auscultation; Negative Wheezes, Rales or Rhonchi
Cardiac: Regular Rhythm and S1/S2; Negative Murmur, Rub or Gallop
GI: Soft, Nontender, Nondistended and Normal Bowel Sounds
Musculoskeletal: No Edema and Other (Right foot in dressing)
Skin: Warm and Dry; Negative Rash, Ulcers or Lesions
Neuro: Awake and AO x 3
Hematologic / Lymphatic: No Lymphadenopathy
Psych: Calm
Data Reviewed
-
CT Scan: Report Reviewed by me
Ultrasound: Report Reviewed by me
Labs: Labs Reviewed by me and Discussed with Patient
[2025-03-27] MEDS: STERILE WATER FOR INJECTION IV (13:47)
--- NOTE | 2025-03-27 14:05 | CON.CAR ---
Consultation
Consultation Request
Date/Time Consultation Requested: 03/26/25 12:05 pm
Date/Time Consultation Performed: 03/26/25 1:00pm
Requesting Provider: Dr Villegas
Performing Provider: Dr Jon
Reason for Consultation: preop
Medical History
-
Chief Complaint: R foot wound
History of Present Illness:
89-year-old male with past medical history of hypertension, DVT status post IVC filter, peripheral vascular disease, right bundle branch block presents to [facility] with a right lower extremity foot wound. He was diagnosed with right
lower extremity DVT in January and further evaluation has led to right external iliac occlusion and a right leg wound. We are asked to see him for preop evaluation prior to possible right lower extremity revascularization. From a cardiac standpoint
he overall feels well. He has no chest pains or shortness of breath. Prior to his issues with his right leg he was swimming for 20 minutes a day with no complaints. He denies any orthopnea, PND, or edema. He has no fevers or chills. He has no
coughing or wheezing.
Past Medical History
Past Medical History: HTN, Hypercholesterolemia and Other (Peripheral vascular disease, DVTs status post IVC filter, CKD 3-4, gout, prostate cancer/bladder cancer)
Past Surgical History: Urological (Prostate cancer)
Social History
Tobacco: Non-Smoker
Alcohol: None
Drug: None
Personal:
Living: With Family
Employment: Retired
Family History
Family History: Hypertension
Allergies / Home Medications
Allergy/AdvReac Type Severity Reaction Status Date / Time
allopurinol Allergy Rash Verified 03/25/25 11:54
amoxicillin Allergy Hives Verified 03/25/25 11:54
�Medication �Instructions �Recorded �Confirmed �Type
amlodipine 5 mg tablet 7.5 mg PO DAILY Blood Pressure 01/18/25 03/25/25 History
ezetimibe 10 mg tablet 10 mg PO DAILY High Cholesterol 01/18/25 03/25/25 History
febuxostat 40 mg tablet (Uloric) 40 mg PO DAILY Gout 01/18/25 03/25/25 History
apixaban 5 mg tablet (Eliquis) 5 mg PO BID 30 days #60 tabs 01/20/25 03/25/25 Rx
tamsulosin 0.4 mg capsule 0.4 mg PO HS 30 days #30 caps 01/20/25 03/25/25 Rx
cholecalciferol (vitamin D3) 25 25 mcg PO DAILY Supplement 03/25/25 03/25/25 History
mcg (1,000 unit) tablet (Vitamin
D3)
Review of Systems
-
History Source: Patient
Constitutional: No Symptoms
EENT: No Symptoms
Respiratory: No Symptoms
Cardiac: No Symptoms
Abdomen/GI: No Symptoms
: No Symptoms
Musculoskeletal: No Symptoms
Skin: Other (Right foot wound)
Neurological: No Symptoms
Physical Exam
Vital Signs
Temp Pulse Resp BP Pulse Ox
97.9 F 92 18 166/82 97
03/27/25 07:30 03/27/25 07:30 03/27/25 07:30 03/27/25 07:47 03/27/25 07:30
Lab Results
03/27/25 07:18
03/27/25 07:18
Physical Exam
General: Well Developed and Well Nourished
HEENT: Normocephalic and Anicteric
Respiratory: Clear and Non Labored Respirations
Cardiac: S1/S2, Regular Rhythm and Murmur (6 syst LSB)
GI: Soft, Non Tender and Non Distended
Musculoskeletal: No Edema
Skin: Other (Right foot dressing intact)
Neuro: Awake and Alert
Psych: Calm
Impression / Plan
-
Assess:
Preop cardiovascular evaluation.
Peripheral vascular disease with occluded right external iliac artery
Hypertension
Hyperlipidemia
Right bundle branch block
CKD 3-4
DVT status post IVC filter
Possible CAD
Echo 08/29: LVEF 55%, no significant valve disease, inferior basal akinesis
Plan:
He presents as a preop evaluation prior to possible vascular surgery. He has no chest pains or shortness of breath and can swim with no symptoms for 20 minutes.
Will check EKG and echo. However, I suspect as long as no markedly abnormal findings he will be stable to proceed with general anesthesia and lower extremity revascularization.
Continue IV heparin. Continue amlodipine. Continue Zetia.
Blood pressure currently mildly elevated. Continue amlodipine and Flomax.
With significant peripheral vascular disease likely has some level of coronary artery disease but has a very high functional capacity.
Discussed with patient and his
Data Reviewed
-
Radiology: Report Reviewed by me
CT Scan: Report Reviewed by me
Medical Tests (Nuc Med, Echo etc): Report Reviewed by me
Labs: Labs Reviewed by me
Old Records: Reviewed
[2025-03-27 15:00] VITALS: BP 127/65
--- NOTE | 2025-03-27 15:34 | W.PN.NEPH.PH ---
Today's Communication / Plan
-
AM labs
Assessment/Plan
-
Impression:
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
Proteinuria
Right foot wound rule out osteomyelitis-CT scan 03/25 occlusion of the right external iliac artery with reconstitution at the level of the right common femoral artery.
Right lower extremity extensive DVT
History of hypertension
History of prostate and bladder cancer status post TURBT/radiation
History of gout
Plan:
Creatinine appears to be at baseline. Remained stable status post contrast 03/25
No signs of osteo= no intervention per podiatry
Status post CTA with occlusion pending vascular recommendation
Creatinine at baseline 1.9�2.1
-
-
Date of Service: March 27, 2025
CC / HPI / ROS
-
Chief Complaint:
Foot infection
History of Present Illness:
Acute on chronic kidney disease requiring IV contrast for evaluation vasculature
Review of Systems:
No chest pain or shortness of breath
Nonoliguric
Labs
-
Labs:
WBC 5.0 10^3/uL (4.8-10.8) 03/27/25 07:18
RBC 4.15 10^6/uL (4.70-6.10) L 03/27/25 07:18
Hgb 12.0 g/dL (13.0-18.0) L 03/27/25 07:18
Hct 35.5 % (39.0-52.0) L 03/27/25 07:18
Plt Count 153 10^3/uL (130-400) 03/27/25 07:18
Sodium 142 mmol/L (135-145) 03/27/25 07:18
Potassium 4.0 mmol/L (3.5-5.1) 03/27/25 07:18
Chloride 112 mmol/L (98-107) H 03/27/25 07:18
Carbon Dioxide 23 mmol/L (22-30) 03/27/25 07:18
BUN 36 mg/dl (9-20) H 03/27/25 07:18
Creatinine 1.9 mg/dL (0.7-1.3) H 03/27/25 07:18
eGFR 33.72 03/27/25 07:18
Glucose 113 mg/dl (70-99) H 03/27/25 07:18
Calcium 9.3 mg/dl (8.4-10.2) 03/27/25 07:18
Phosphorus 3.7 mg/dl (2.5-4.5) 03/26/25 04:02
Albumin 3.5 g/dl (3.5-5.0) 03/27/25 07:18
Physical Exam
-
Vital Signs:
Vital Signs
Temp Pulse Resp BP Pulse Ox
97.9 F 92 18 166/82 97
03/27/25 07:30 03/27/25 07:30 03/27/25 07:30 03/27/25 07:47 03/27/25 07:30
Cardiovascular:: Regular rate and rhythm
Respiratory:: Bilateral: CTA
Lung Excursion:: Normal
Abdomen:: Nontender and Soft
Extremity Edema:: None: Bilateral:
Macias Catheter: No
[2025-03-27] MEDS: FLOMAX 0.4 MG PO (19:28)
[2025-03-27 23:00] VITALS: BP 137/71
[2025-03-28] MEDS: STERILE WATER FOR INJECTION IV ×2 (01:22→08:46)
[2025-03-28 07:37] VITALS: BP 123/64
[2025-03-28] MEDS: NORVASC 7.5 MG PO (07:42)
[2025-03-28] MEDS: VITAMIN D3 (cholecalciferol) 25 MCG PO (07:42)
[2025-03-28] MEDS: ULORIC 40 MG PO (07:44)
[2025-03-28] MEDS: ZETIA 10 MG PO (07:45)
[2025-03-28 08:13] LABS: Hematocrit 36.4 % (39.0-52.0); Hemoglobin 11.7 g/dL (13.0-18.0); Mean Corp Hgb Conc. 32.1 g/dL (33.0-37.0); Mean Corpuscular Volume 90.3 fL (80.0-94.0); Nucleated Red Blood Cells % 0 % (-); Platelet Count 151 10^3/uL (130-400); Red Cell Dist. Width 13.3 % (11.5-14.5)
[2025-03-28 08:23] LABS: APTT 90.1 Sec (23.4-35.0)
[2025-03-28 08:55] LABS: ALT (SGPT) 22 U/L (0-50); AST (SGOT) 25 U/L (17-59); Albumin 3.3 g/dl (3.5-5.0); Alkaline Phosphatase 117 U/L (38-126); Blood Urea Nitrogen 37 mg/dl (9-20); Calcium 9.2 mg/dl (8.4-10.2); Carbon Dioxide 22 mmol/L (22-30); Chloride 111 mmol/L (98-107); Estimated Creatinine Clearance 27 ml/min; Glucose 113 mg/dl (70-99); Potassium 4.2 mmol/L (3.5-5.1); Sodium 138 mmol/L (135-145); Total Protein 6.3 g/dl (6.3-8.2); eGFR 35.98
--- NOTE | 2025-03-28 09:54 | W.PN.CARDCBS ---
Today's Communication / Plan
-
Echo pending. As long as there are no signficantly abnormal findings he will be stable to proceed with general anesthesia and lower extremity revascularization.
Continue IV heparin.
Bp stable. Continue amlodipine and flomax
With significant peripheral vascular disease likely has some level of coronary artery disease but has a very high functional capacity and if echo is stable, he is mild to moderate but acceptable risk for vascular surgery.
Impression / Plan
-
.
Charger Tester: Dr Tan Galo
Impression:
Preop cardiovascular evaluation.
Peripheral vascular disease with occluded right external iliac artery
Hypertension
Hyperlipidemia
Right bundle branch block
CKD 3-4
DVT status post IVC filter
Possible CAD
Echo 08/29: LVEF 55%, no significant valve disease, inferior basal akinesis
Plan:
He presents as a preop evaluation prior to possible vascular surgery. He has no chest pains or shortness of breath and can swim with no symptoms for 20 minutes.
EKG is stable. He has known chronic bradycardia and AV turner blockers should be avoided.
Echo pending. As long as there are no signficantly abnormal findings he will be stable to proceed with general anesthesia and lower extremity revascularization.
Continue IV heparin.
Bp stable. Continue amlodipine and flomax
Hx hyperlipidemia. Continue Zetia.
With significant peripheral vascular disease likely has some level of coronary artery disease but has a very high functional capacity and if echo is stable, he is mild to moderate but acceptable risk for vascular surgery.
Discussed with patient and his and nursing.
Progress Note - Charger Tester
Subjective
Date of Service: March 28, 2025
Pt seen and examined. No complaints. No chest pain or shortness of breath.
Objective
Labs:
03/28/25 07:30
03/28/25 07:30
Labs
Hgb 11.7 g/dL (13.0-18.0) L 03/28/25 07:30
Hct 36.4 % (39.0-52.0) L 03/28/25 07:30
Plt Count 151 10^3/uL (130-400) 03/28/25 07:30
PT 18.5 Sec (11.4-14.6) H 03/25/25 11:49
INR 1.52 03/25/25 11:49
APTT 90.1 Sec (23.4-35.0) H 03/28/25 07:30
Sodium 138 mmol/L (135-145) 03/28/25 07:30
Potassium 4.2 mmol/L (3.5-5.1) 03/28/25 07:30
BUN 37 mg/dl (9-20) H 03/28/25 07:30
Creatinine 1.8 mg/dL (0.7-1.3) H 03/28/25 07:30
Glucose 113 mg/dl (70-99) H 03/28/25 07:30
Vital Signs and I&O:
Vital Signs
Temp Pulse Resp BP Pulse Ox
98.0 F 69 17 123/64 98
03/28/25 07:37 03/28/25 07:37 03/28/25 07:37 03/28/25 07:37 03/28/25 07:37
Vital Signs
Temp Pulse Resp BP Pulse Ox
98.0 F 69 17 123/64 98
03/28/25 07:37 03/28/25 07:37 03/28/25 07:37 03/28/25 07:37 03/28/25 07:37
Intake & Output
03/26/25 03/27/25 03/28/25 03/29/25
06:59 06:59 06:59 06:59
Intake Total 365 / 365 480 / 480
Output Total 950 / 950 550 / 550 300 / 300
Balance -585 / -585 -70 / -70 -300 / -300
Physical Exam
Physical Exam
General: No acute distress, AAOX3
Neck: Negative JVD
Heart: Regular, Negative S3 positive S1/S2, Negative S4, No murmur
Lungs: CTA b/l, negative wheezes/rales/rhonchi
Abd: Positive BS, NT/ND, neg rebound/rigidity/guarding
Ext: Negative cyanosis/clubbing/edema. Right LE dressing c/d/i
Neuro: nonfocal
--- NOTE | 2025-03-28 11:48 | W.PN.NEPH.PH ---
Today's Communication / Plan
-
No new recommendations kidney function is at baseline
Blood pressure controlled on amlodipine
Assessment/Plan
-
Impression:
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
Proteinuria
Right foot wound rule out osteomyelitis-CT scan 03/25 occlusion of the right external iliac artery with reconstitution at the level of the right common femoral artery.
Right lower extremity extensive DVT
History of hypertension
History of prostate and bladder cancer status post TURBT/radiation
History of gout
Plan:
Creatinine appears to be at baseline. Remained stable status post contrast 03/25
Creatinine stable at 1.8
No signs of osteo= no intervention per podiatry
Status post CTA with occlusion pending vascular recommendation
Creatinine at baseline 1.9�2.1
Hypertension:
Well-controlled on amlodipine
-
-
Date of Service: March 28, 2025
CC / HPI / ROS
-
Chief Complaint:
Foot infection
History of Present Illness:
Acute on chronic kidney disease requiring IV contrast for evaluation vasculature
Creatinine at baseline 1.8
Blood pressure well-controlled on amlodipine
Remains on IV heparin
Review of Systems:
No chest pain or shortness of breath
Nonoliguric
Labs
-
Labs:
WBC 4.7 10^3/uL (4.8-10.8) L 03/28/25 07:30
RBC 4.03 10^6/uL (4.70-6.10) L 03/28/25 07:30
Hgb 11.7 g/dL (13.0-18.0) L 03/28/25 07:30
Hct 36.4 % (39.0-52.0) L 03/28/25 07:30
Plt Count 151 10^3/uL (130-400) 03/28/25 07:30
Sodium 138 mmol/L (135-145) 03/28/25 07:30
Potassium 4.2 mmol/L (3.5-5.1) 03/28/25 07:30
Chloride 111 mmol/L (98-107) H 03/28/25 07:30
Carbon Dioxide 22 mmol/L (22-30) 03/28/25 07:30
BUN 37 mg/dl (9-20) H 03/28/25 07:30
Creatinine 1.8 mg/dL (0.7-1.3) H 03/28/25 07:30
eGFR 35.98 03/28/25 07:30
Glucose 113 mg/dl (70-99) H 03/28/25 07:30
Calcium 9.2 mg/dl (8.4-10.2) 03/28/25 07:30
Phosphorus 3.7 mg/dl (2.5-4.5) 03/26/25 04:02
Albumin 3.3 g/dl (3.5-5.0) L 03/28/25 07:30
Physical Exam
-
Vital Signs:
Vital Signs
Temp Pulse Resp BP Pulse Ox
98.0 F 69 17 123/64 98
03/28/25 07:37 03/28/25 07:37 03/28/25 07:37 03/28/25 07:37 03/28/25 07:37
Cardiovascular:: Regular rate and rhythm
Respiratory:: Bilateral: CTA
Lung Excursion:: Normal
Abdomen:: Nontender and Soft
Extremity Edema:: None: Bilateral:
Macias Catheter: No
--- NOTE | 2025-03-28 11:55 | W.PN.HOSP.TC ---
Today's Communication/Plan
-
Assessment / Plan
Assessment / Plan
General: No Apparent Distress, Comfortable and Conversant
HEENT: NormoCephalic, Moist mucous membranes, Atraumatic
Respiratory: Clear and Non Labored Respirations
Cardiac: S1/S2 and Regular Rhythm; No Rub or Gallop
GI: Soft, Non Tender, Non Distended and Normal Bowel Sounds
Musculoskeletal: No Edema, right foot with wound dressing CDI, distal sensation intact
: NO Macias
Neuro: Awake, Alert, Nonfocal/grossly intact
Psych: Calm and cooperative
89y M with h/o prostate cancer, bladder cancer and prior DVT, PAD with chronic ischemia of the right lower leg p/w infected arterial ulcer.
R foot necrotic wound
- CTA abdomen aorta with runoff shows Occlusion of the right external iliac artery with reconstitution at the level of the right common femoral artery. No flow is appreciated along the course of the right anterior tibial artery.
- Vascular surgery consulted, d/w Dr. Canales will review with Dr. Sotelo for OR plan. They request cardiology preoperative for strep, consulted Dr. Ruiz, preoperative echocardiogram pending.
- Podiatry consulted -they recommend no antibiotics. No intervention planned at this time.
- IV meropenem discontinued per podiatry rec
- Hold Eliquis and placed on heparin drip perioperatively
Extensive RLE DVT
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
Hold Eliquis and placed on heparin drip perioperatively
CKD
Nephrology consulted and recommended bicarbonate for MARIO prevention for IV contrast. creatinine, 1.8 today which appears to be at baseline.
Benign Hypertension
BP controlled, continue amlodipine
History of Gout
- Uloric
Bladder Cancer
Prostate Cancer
- No active treatments / disease known.
- s/p XRT, TURBT, etc.
DVT ppx
hep gtt
Code Status: DNR
Anticipated Discharge: > 48 hours
Subjective/Interval History
-
Date of Service: March 28, 2025
Patient was seen and examined at bedside this morning. Enjoying his breakfast of 'quail eggs'. Remains on IV heparin drip and awaiting echocardiogram.
Objective Data
-
Labs:
Laboratory Results
03/28/25
07:30
WBC 4.7 L
Hgb 11.7 L
Hct 36.4 L
Plt Count 151
APTT 90.1 H
Sodium 138
Potassium 4.2
Chloride 111 H
Carbon Dioxide 22
BUN 37 H
Creatinine 1.8 H
Glucose 113 H
Calcium 9.2
Total Bilirubin 0.7
AST 25
ALT 22
Alkaline Phosphatase 117
Vital Signs:
Vital Signs
Temp Pulse Resp BP Pulse Ox
98.0 F 69 17 123/64 98
03/28/25 07:37 03/28/25 07:37 03/28/25 07:37 03/28/25 07:37 03/28/25 07:37
I&O
03/27/25 03/28/25 03/29/25
06:59 06:59 06:59
Intake Total 480 / 480
Output Total 550 / 550 300 / 300
Balance -70 / -70 -300 / -300
Review of Systems
-
History Source: Patient
All other systems: Reviewed and negative
Physical Exam
-
General: No Apparent Distress
[2025-03-28 15:34] VITALS: BP 133/70
--- NOTE | 2025-03-28 16:45 | CM ---
Patient seen at bedside on . Patient and live in independent cottage at [facility]. Patient indicated that they would need VN if able to [place] [facility], prefer not to go to rehab at SNF pending therapy recommendations. CM will continue
to follow for discharge planning needs.
Plan; [place] [facility] [place]; had [facility] in past vs SNF
--- NOTE | 2025-03-28 17:36 | W.PN.UPDATE ---
Update Note
Progress Note Update
Patient seen at bedside with Dr. Sergey Macias III, CT angio results reviewed with patient by Dr. Macias. Plan is for OR tomorrow 03/29/2025 for endovascular approach to peripheral arterial disease. Patient is agreeable, n.p.o. at midnight.
[2025-03-28] MEDS: FLOMAX 0.4 MG PO (19:10)
[2025-03-28] MEDS: TYLENOL 650 MG PO (21:56)
[2025-03-28 23:00] VITALS: BP 119/50
[2025-03-29] VITALS (9 sets, daily range): BP systolic 127–147; BP diastolic 62–95
[2025-03-29] MEDS: STERILE WATER FOR INJECTION IV (01:10)
--- NOTE | 2025-03-29 03:52 | W.PN.UPDATE ---
Update Note
Progress Note Update
Patient w/hematuria overnight, small amount of blood tinged urine in patient's brief w/small clots noted. Asked patient to use urinal to quantify amount and color/clots, patient agreeable. AM labs ordered, trend H&H.
Heparin gtt continued at hemoglobin and vital signs are stable.
[2025-03-29] MEDS: HEPARIN 25000 UNITS/250 ML IV (05:18)
[2025-03-29 06:22] LABS: Hematocrit 35.2 % (39.0-52.0); Hemoglobin 11.5 g/dL (13.0-18.0); Mean Corp Hgb Conc. 32.7 g/dL (33.0-37.0); Mean Corpuscular Volume 90.3 fL (80.0-94.0); Nucleated Red Blood Cells % 0 % (-); Platelet Count 154 10^3/uL (130-400); Red Cell Dist. Width 13.3 % (11.5-14.5)
[2025-03-29 06:23] LABS: APTT 80.4 Sec (23.4-35.0)
[2025-03-29 06:30] LABS: ALT (SGPT) 25 U/L (0-50); AST (SGOT) 24 U/L (17-59); Alkaline Phosphatase 115 U/L (38-126); Blood Urea Nitrogen 34 mg/dl (9-20); Calcium 9.2 mg/dl (8.4-10.2); Carbon Dioxide 22 mmol/L (22-30); Chloride 113 mmol/L (98-107); Estimated Creatinine Clearance 26 ml/min; Glucose 117 mg/dl (70-99); Potassium 4.5 mmol/L (3.5-5.1); Sodium 141 mmol/L (135-145); Total Protein 6.1 g/dl (6.3-8.2); eGFR 33.72
[2025-03-29 06:37] LABS: Albumin 3.3 g/dl (3.5-5.0)
[2025-03-29] MEDS: ULORIC 40 MG PO (07:58)
[2025-03-29] MEDS: ZETIA 10 MG PO (07:58)
[2025-03-29] MEDS: NORVASC 7.5 MG PO (07:58)
[2025-03-29] MEDS: VITAMIN D3 (cholecalciferol) 25 MCG PO (07:58)
--- NOTE | 2025-03-29 08:01 | PTCARENOTE ---
hematuria this am - pt denies any pain, no abdominal distention noted. Hospitalist notified
--- NOTE | 2025-03-29 11:27 | CM ---
Chart reviewed and patient is for possible OR today, plan is then for patient to return to his apartment in independent living at [facility], patient is agreeable to visiting nurses, VN liaison contacted.
Plan; Home with [facility].
--- NOTE | 2025-03-29 12:58 | VNURNOTE ---
Home Health Liaison met with patient and spouse at bedside to discuss [facility] nurse/therapy, visits, schedule and homebound status. Patient is agreeable and understands that visits at home will be 2-3 x per week to assess and teach medical and wound
management. Patient is aware that [facility] will contact them for start of care within a few days after discharge from . Provided contact number for [facility].
[facility] referral completed in [facility].
--- NOTE | 2025-03-29 13:38 | W.PN.CARDCBS ---
Today's Communication / Plan
-
Echo stable
Acceptable cardiac risk for surgery/procedures
Impression / Plan
-
.
Teacher'S Aide: Dr Tan Galo
Impression:
Preop cardiovascular evaluation.
Peripheral vascular disease with occluded right external iliac artery
Hypertension
Hyperlipidemia
Right bundle branch block
CKD 3-4
DVT status post IVC filter
Possible CAD
Echo 08/29: LVEF 55%, no significant valve disease, inferior basal akinesis
Echo Mar 2025: Normal left ventricular size and overall, normal left ventricular systolic function. Mild concentric left ventricular hypertrophy. There are no regional wall motion abnormalities noted. Left ventricular ejection fraction is 55% by
volumetric assessment.Mild TR
Plan:
He presented as a preop evaluation prior to possible vascular surgery. He has no chest pains or shortness of breath and can swim with no symptoms for 20 minutes.
EKG is stable. He has known chronic bradycardia and AV turner blockers should be avoided.
Echo is stable.
He remains compensated to proceed with vascular procedures.
Continue IV heparin.
Bp remains stable. Continue amlodipine and flomax
Hx hyperlipidemia. Continue Zetia.
With significant peripheral vascular disease likely has some level of coronary artery disease but has a very high functional capacity and if echo is stable, he is mild to moderate but acceptable risk for vascular surgery or procedures.
Discussed with patient and his .
Progress Note - Teacher'S Aide
Subjective
Date of Service: March 29, 2025
Patient seen and examined. No chest pain or shortness of breath.
Objective
Labs:
03/29/25 05:51
03/29/25 05:51
Labs
Hgb 11.5 g/dL (13.0-18.0) L 03/29/25 05:51
Hct 35.2 % (39.0-52.0) L 03/29/25 05:51
Plt Count 154 10^3/uL (130-400) 03/29/25 05:51
PT 18.5 Sec (11.4-14.6) H 03/25/25 11:49
INR 1.52 03/25/25 11:49
APTT 80.4 Sec (23.4-35.0) H 03/29/25 05:51
Sodium 141 mmol/L (135-145) 03/29/25 05:51
Potassium 4.5 mmol/L (3.5-5.1) 03/29/25 05:51
BUN 34 mg/dl (9-20) H 03/29/25 05:51
Creatinine 1.9 mg/dL (0.7-1.3) H 03/29/25 05:51
Glucose 117 mg/dl (70-99) H 03/29/25 05:51
Vital Signs and I&O:
Vital Signs
Temp Pulse Resp BP Pulse Ox
98.2 F 67 20 141/70 97
03/29/25 07:24 03/29/25 07:24 03/29/25 07:24 03/29/25 07:24 03/29/25 07:24
Vital Signs
Temp Pulse Resp BP Pulse Ox
98.2 F 67 20 141/70 97
03/29/25 07:24 03/29/25 07:24 03/29/25 07:24 03/29/25 07:24 03/29/25 07:24
Intake & Output
03/27/25 03/28/25 03/29/25 03/30/25
06:59 06:59 06:59 06:59
Intake Total 480 / 480
Output Total 550 / 550 300 / 300
Balance -70 / -70 -300 / -300
Physical Exam
Physical Exam
General: No acute distress, AAOX3
Neck: Negative JVD
Heart: Regular, Negative S3 positive S1/S2, Negative S4, No murmur
Lungs: CTA b/l, negative wheezes/rales/rhonchi
Abd: Positive BS, NT/ND, neg rebound/rigidity/guarding
Ext: Negative cyanosis/clubbing/edema. Right lower extremity dressing clear dry and intact
Neuro: nonfocal
--- NOTE | 2025-03-29 13:45 | W.PN.UPDATE ---
Update Note
Progress Note Update
CT angiogram personally reviewed. He has a right common iliac artery stenosis and a right external iliac artery occlusion. Calcified stenosis of the right superficial femoral artery. He has limb threatening ischemia manifested by a nonhealing
right dorsal foot wound. My recommendation is that we move forward with arteriogram and possible endovascular intervention. The technical aspects of this procedure were discussed with him and his (via telephone) in detail. The benefits and
rationale for this approach were discussed with both of them in detail. Operative risks were discussed with them in detail including but not limited to arterial access site injury, bleeding, contrast nephropathy, distal embolization, inability to
successfully complete endovascular intervention and the need for additional procedures. They expressed a clear understanding of our conversation and agreed to proceed with surgery as detailed above.
Sergey Macias III, MD
Vascular Surgery
[facility]
--- NOTE | 2025-03-29 14:05 | W.PN.HOSP.TC ---
Today's Communication/Plan
-
Assessment / Plan
Assessment / Plan
General: No Apparent Distress, Comfortable and Conversant
HEENT: NormoCephalic, Moist mucous membranes, Atraumatic
Respiratory: Clear and Non Labored Respirations
Cardiac: S1/S2 and Regular Rhythm; No Rub or Gallop
GI: Soft, Non Tender, Non Distended and Normal Bowel Sounds
Musculoskeletal: No Edema, right foot with wound dressing CDI, distal sensation intact
: NO Macias
Neuro: Awake, Alert, Nonfocal/grossly intact
Psych: Calm and cooperative
89y M with h/o prostate cancer, bladder cancer and prior DVT, PAD with chronic ischemia of the right lower leg p/w infected arterial ulcer.
R foot necrotic wound
- CTA abdomen aorta with runoff shows Occlusion of the right external iliac artery with reconstitution at the level of the right common femoral artery. No flow is appreciated along the course of the right anterior tibial artery.
- Vascular surgery consulted, n.p.o. for angiogram and possible vascular intervention later today, acceptable cardiac risk for planned procedures
- Podiatry consulted -they recommend no antibiotics. No podiatric intervention planned at this time.
- IV meropenem discontinued per podiatry rec
- Hold Eliquis and placed on heparin drip perioperatively
Hematuria
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
- Monitor for acute urinary retention
- Hemoglobin currently stable, will monitor
Extensive RLE DVT
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
Hold Eliquis and placed on heparin drip perioperatively
CKD
Nephrology consulted and recommended bicarbonate for MARIO prevention for IV contrast. creatinine, 1.8 today which appears to be at baseline.
Benign Hypertension
BP controlled, continue amlodipine
History of Gout
- Uloric
Bladder Cancer
Prostate Cancer
- No active treatments / disease known.
- s/p XRT, TURBT, etc.
DVT ppx
hep gtt
Code Status: DNR
Anticipated Discharge: 24 - 48 hours
Subjective/Interval History
-
Date of Service: March 29, 2025
Patient was seen and examined at bedside this morning. No acute distress. Awaiting OR with vascular surgery today.
Objective Data
-
Labs:
Laboratory Results
03/29/25
05:51
WBC 4.9
Hgb 11.5 L
Hct 35.2 L
Plt Count 154
APTT 80.4 H
Sodium 141
Potassium 4.5
Chloride 113 H
Carbon Dioxide 22
BUN 34 H
Creatinine 1.9 H
Glucose 117 H
Calcium 9.2
Total Bilirubin 0.4
AST 24
ALT 25
Alkaline Phosphatase 115
Vital Signs:
Vital Signs
Temp Pulse Resp BP Pulse Ox
98.2 F 67 20 141/70 97
03/29/25 07:24 03/29/25 07:24 03/29/25 07:24 03/29/25 07:24 03/29/25 07:24
I&O
03/28/25 03/29/25 03/30/25
06:59 06:59 06:59
Output Total 300 / 300
Balance -300 / -300
Review of Systems
-
History Source: Patient
All other systems: Reviewed and negative
Physical Exam
-
General: No Apparent Distress
--- NOTE | 2025-03-29 15:34 | W.PN.NEPH.PH ---
Today's Communication / Plan
-
GFR stable at baseline
Contrast prophylaxis obtain before vascular procedure today for ischemic right foot wound
Assessment/Plan
-
Impression:
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
Proteinuria
Right foot wound rule out osteomyelitis-CT scan 03/25 occlusion of the right external iliac artery with reconstitution at the level of the right common femoral artery.
Right lower extremity extensive DVT
History of hypertension
History of prostate and bladder cancer status post TURBT/radiation
History of gout
Plan:
Creatinine appears to be at baseline. Remained stable status post contrast 03/25
Creatinine stable at 1.9
No signs of osteo= no intervention per podiatry
Status post CTA with occlusion pending vascular recommendation
Creatinine at baseline 1.9�2.1
For endovascular arteriogram today contrast prophylaxis provided by vascular surgery
Hypertension:
Well-controlled on amlodipine
-
-
Date of Service: March 29, 2025
CC / HPI / ROS
-
Chief Complaint:
Foot infection
History of Present Illness:
Acute on chronic kidney disease requiring IV contrast for evaluation vasculature
Creatinine at baseline 1.9
Blood pressure well-controlled on amlodipine
Remains on IV heparin
Review of Systems:
No chest pain or shortness of breath
Nonoliguric
Labs
-
Labs:
WBC 4.9 10^3/uL (4.8-10.8) 03/29/25 05:51
RBC 3.90 10^6/uL (4.70-6.10) L 03/29/25 05:51
Hgb 11.5 g/dL (13.0-18.0) L 03/29/25 05:51
Hct 35.2 % (39.0-52.0) L 03/29/25 05:51
Plt Count 154 10^3/uL (130-400) 03/29/25 05:51
Sodium 141 mmol/L (135-145) 03/29/25 05:51
Potassium 4.5 mmol/L (3.5-5.1) 03/29/25 05:51
Chloride 113 mmol/L (98-107) H 03/29/25 05:51
Carbon Dioxide 22 mmol/L (22-30) 03/29/25 05:51
BUN 34 mg/dl (9-20) H 03/29/25 05:51
Creatinine 1.9 mg/dL (0.7-1.3) H 03/29/25 05:51
eGFR 33.72 03/29/25 05:51
Glucose 117 mg/dl (70-99) H 03/29/25 05:51
Calcium 9.2 mg/dl (8.4-10.2) 03/29/25 05:51
Phosphorus 3.7 mg/dl (2.5-4.5) 03/26/25 04:02
Albumin 3.3 g/dl (3.5-5.0) L 03/29/25 05:51
Physical Exam
-
Vital Signs:
Vital Signs
Temp Pulse Resp BP Pulse Ox
98.6 F 64 14 140/62 99
03/29/25 15:07 03/29/25 15:07 03/29/25 15:07 03/29/25 15:07 03/29/25 15:07
Cardiovascular:: Regular rate and rhythm
Respiratory:: Bilateral: CTA
Lung Excursion:: Normal
Abdomen:: Nontender and Soft
Extremity Edema:: None: Bilateral:
Macias Catheter: No
[2025-03-29] MEDS: SODIUM BICARBONATE 1150 MEQ IV (16:12)
--- NOTE | 2025-03-29 16:41 | W.SUR.PREOP ---
Pre-Operative Surgical Note
-
I have examined this patient prior to the performance of the scheduled procedure.
The patient's condition is unchanged from the time of the current History and
Physical and the patient is able to undergo the scheduled procedure.
[2025-03-29 18:45] LABS: ACT-LR - POC 216 Seconds (116-155)
--- NOTE | 2025-03-29 20:06 | OR.RPT ---
Operative Report
Operative Report
Date of Operation: 03/29/2025
Pre Op Diagnosis: Chronic limb threatening ischemia, right lower extremity
Post Op Diagnosis: Chronic limb threatening ischemia, right lower extremity
Procedure:
1. Intravascular lithotripsy to right external iliac artery occlusion (8 mm M5+)
2. Balloon angioplasty and stenting of right external iliac artery occlusion (2 overlapping 8 mm x 59 mm [place] VBX stents)
3. Balloon angioplasty and drug-eluting stent placement to right superficial femoral artery (6 mm x 140 mm Zilver PTX)
4. Mechanical thrombectomy of right common femoral artery and superficial femoral artery (Penumbra Lightening [place] 7)
5. Balloon angioplasty of distal posterior tibial artery occlusion (2 mm x 40 mm angioplasty balloon)
6. Balloon angioplasty of peroneal artery occlusion (2.5 mm x 220 mm angioplasty balloon)
7. Balloon angioplasty and stenting of right common iliac artery stenosis (8 mm x 39 mm [place] VBX stent)
8. Ultrasound-guided percutaneous access to the left common femoral artery
9. Diagnostic aortobiiliac arteriogram
10. Diagnostic right lower extremity arteriogram
Surgeon: Sergey Macias III, MD
Applications Development Consultant: Siddharth Gaines MD PGY2
Anesthesia: Sedation with local
Fluoroscopy:
53.1 min
425 mGy
116.81 gy.cm2
Complications: None
Estimated Blood Loss: 20 cc
History and Indications for Procedure: 89-year-old male with limb threatening ischemia of the right lower extremity manifested by nonhealing necrotic right dorsal foot wound
Procedure in Detail: Marbin Luke was correctly identified and placed supine on the operating table. After adequate induction of anesthesia the bilateral groins were prepped and draped in the usual sterile fashion. A timeout was performed with
the nursing and anesthesia staff confirming the patient's identity as well as the nature and laterality of the procedure.
The left common femoral artery was identified under ultrasound guidance. The artery was patent. The superior and inferior aspects of the femoral head were identified with radiographic guidance and marked at the skin level. The proposed puncture site
was infiltrated with local anesthesia. Under ultrasound guidance we accessed the left common femoral artery with a micropuncture needle and upsized to a 5 Fr sheath over a BRIKAson wire. The wire and a [employer] hook flush catheter were advanced into
the distal abdominal aorta and a diagnostic aorto-biiliac arteriogram was performed:
AORTO-ILIAC ARTERIOGRAM:
Aorta: Calcified but patent with no significant stenosis identified
Right common iliac artery: Significant stenosis in the proximal aspect. Patent.
Right external iliac artery: Short patent stump but occluded thereafter
Left common iliac artery: Patent
Left external iliac artery: Patent
Systemic heparin was administered. Under roadmap guidance using a Glidewire and the [employer] hook catheter we selected the right common iliac artery followed by the external iliac artery. I was able to navigate the Glidewire through the right
external iliac artery occlusion and into the common femoral artery and superficial femoral artery outflow. I tracked a Quickcross catheter up and over the aortic bifurcation and advanced this to the superficial femoral artery. I confirmed proper
location within the superficial femoral artery with an arteriogram. I then exchanged out for a [employer] wire. I then brought a 7 Hungarian 45 cm sheath up and over the aortic bifurcation, through the external iliac artery occlusion and position of the
radiopaque tip in the common femoral artery. Through a quick cross catheter I exchanged out for a 0.014 wire.
Due to the calcified nature of the right external iliac artery disease and in an effort to modify the calcium to achieve maximum luminal gain with endovascular intervention I elected to proceed with intravascular lithotripsy. A 8 mm x 60 mm M5+
shockwave balloon was placed across the occlusion under roadmap guidance. Alternating rounds of lithotripsy pulse delivery at sub-nominal pressure and angioplasty at nominal pressure was performed across the stenosis. In between rounds of pulse
delivery and angioplasty the balloon was deflated and repositioned under roadmap guidance. The entire external iliac artery occlusion was treated with this approach. All 300 pulses were delivered.
I then followed this with 2 overlapping 8 mm x 59 mm [place] VBX stents to treat the entire length of external iliac artery from the inguinal ligament back to the iliac bifurcation.
Subsequent arteriogram demonstrated an excellent result with the external iliac artery however there was evidence of distal embolization to the common femoral artery. With the wire still in position through the superficial femoral artery and
popliteal artery I brought a Penumbra lightening bolt 7 catheter through the 7 Hungarian sheath. I then performed mechanical thrombectomy on the common femoral artery with a good technical result. Subsequent arteriogram revealed an occlusion of the
more distal superficial femoral artery in an area of heavily calcified plaque. The Penumbra catheter was advanced through this segment as well but did not lead to complete opening of the artery. I therefore treated the distal superficial femoral
artery with a 6 mm x 140 mm Zilver PTX stent. The stent was positioned in the desired location and deployed without difficulty. The stent was then profiled with a 6 mm angioplasty balloon.
Subsequent arteriogram demonstrated a widely patent superficial femoral artery stent with good flow and no residual stenosis identified. The popliteal artery was patent. The posterior tibial artery was patent however there was a more distal
occlusion near the ankle. The peroneal artery was patent for a stump and then occluded thereafter. The anterior tibial artery was completely occluded with no distal reconstitution as seen on preoperative CT angiogram.
Using a Quickcross and Glidewire under roadmap guidance I then selected the posterior tibial artery. I advanced the wire and catheter through the posterior tibial artery down to the ankle. 10 mg of tPA were administered through the distal
posterior tibial artery and into the foot. Under roadmap guidance I was then able to navigate a 0.014 Mongo wire across the posterior tibial artery occlusion and into the plantar branch outflow. A 2 mm x 40 mm angioplasty balloon was then advanced
across the occluded segment. The balloon was inflated to nominal pressure and held in place for a 2-minute inflation. Subsequent arteriogram demonstrated a patent posterior tibial artery with flow into the foot. Some outflow spasm was present in
the plantar branches which was treated with nitro injection directly through the posterior tibial artery.
Under roadmap guidance I then selected the peroneal artery with the Quickcross and Glidewire. I then exchanged out for the Mongo wire and a 0.014 quick cross catheter. I was able to navigate through the entire occluded segment of the peroneal
artery and advanced the wire and catheter to the patent reconstituted segment at the ankle. Additional nitro was given through the catheter. I then treated the entire peroneal artery occlusion with a 2.5 mm x 220 mm angioplasty balloon. 2
separate inflations were made at nominal pressure, holding for 2 minutes at each segment. Subsequent arteriogram demonstrated a nice technical result with patent peroneal and posterior tibial artery in the calf. I did not see any reconstituted
flow to the distal anterior tibial artery or dorsalis pedis artery.
I then focused my attention on the right common iliac artery stenosis. I exchanged back out for a [employer] wire. The 7 Hungarian sheath was pulled back to the aortic bifurcation. Under roadmap guidance I brought into position an 8 mm x 39 mm [place] VBX
stent. This was positioned across the right common iliac artery stenosis and deployed in the desired location. Subsequent arteriogram demonstrated a widely patent right common iliac artery stent, patent iliac bifurcation and widely patent right
external iliac artery stents with brisk flow. A patent common femoral artery and femoral bifurcation was demonstrated on completion imaging.
Satisfied with this result we concluded the procedure. The sheath tip was pulled back into the left external iliac artery. Protamine was administered. The sheath was pulled and direct manual pressure was held over the puncture site until
hemostasis was achieved. A sterile dressing was applied.
The patient tolerated the procedure well and was taken to the recovery area in stable condition.
At the conclusion of the case the patient had a robust posterior tibial artery Doppler signal at the ankle.
Attestation: I was present and responsible for the entire procedure.
Signed:
Sergey Macias III, MD
Vascular Surgery
[facility]
[2025-03-29] MEDS: DILAUDID 0.5 MG IV (20:13)
[2025-03-29] MEDS: PLAVIX 300 MG PO (20:32)
[2025-03-29] MEDS: FLOMAX 0.4 MG PO (22:07)
[2025-03-30] VITALS: BP 118/79
--- NOTE | 2025-03-30 00:11 | PTCARENOTE ---
Patient arrived back to unit around 20:50 via stretcher from PACU. Patient on q 1 hour vitals, neurovascular and site checks. Patient on hour 2 of laying flat. AAox 3. Denies pain at current time. Vitals stable. Bilateral pedal and left femoral
pulse heard via doppler. Femoral site intact. Heparin gtt on hold until 2am and to restart at previous rate of 11ml/hr. Call laurent within reach.
[2025-03-30 00:52] LABS: APTT 34.2 Sec (23.4-35.0)
[2025-03-30] MEDS: HEPARIN 25000 UNITS/250 ML IV (02:00)
--- NOTE | 2025-03-30 02:28 | DOWNTIME ---
There was a [employer] Client Chemistry Teacher Downtime on 03/30/2025 from 0100 to 03/30/2025 at 0215. Downtime documentation of patient's care, including medication administrations, has been reconciled in the electronic record per guidelines. Refer to the
patient's paper chart under the miscellaneous tab to see printed paper medication records and downtime forms.
[2025-03-30 03:00] VITALS: BP 138/66
[2025-03-30 07:54] LABS: Hematocrit 35.1 % (39.0-52.0); Hemoglobin 11.6 g/dL (13.0-18.0); Mean Corp Hgb Conc. 33.0 g/dL (33.0-37.0); Mean Corpuscular Volume 88.2 fL (80.0-94.0); Nucleated Red Blood Cells % 0 % (-); Platelet Count 149 10^3/uL (130-400); Red Cell Dist. Width 13.2 % (11.5-14.5)
--- NOTE | 2025-03-30 07:54 | W.PN.VS ---
Addendum entered and electronically signed by TONY Larkin 03/30/25 12:05:
CORRECTION: given patient is still in under 6 months from DVT diagnosis would continue Eliquis 5mg PO BID with Plavix 75mg PO daily, relayed to hospitalist and medical management plan reviewed with attending Dr. Trevor Sotelo.
Original Note:
Today's Communication / Plan
-
Plan reviewed with workers compensation analyst attending.
Assessment/Plan
-
Assessment POD#1
1. Intravascular lithotripsy to right external iliac artery occlusion (8 mm M5+)
2. Balloon angioplasty and stenting of right external iliac artery occlusion (2 overlapping 8 mm x 59 mm [place] VBX stents)
3. Balloon angioplasty and drug-eluting stent placement to right superficial femoral artery (6 mm x 140 mm Zilver PTX)
4. Mechanical thrombectomy of right common femoral artery and superficial femoral artery (Penumbra Lightening [place] 7)
5. Balloon angioplasty of distal posterior tibial artery occlusion (2 mm x 40 mm angioplasty balloon)
6. Balloon angioplasty of peroneal artery occlusion (2.5 mm x 220 mm angioplasty balloon)
7. Balloon angioplasty and stenting of right common iliac artery stenosis (8 mm x 39 mm Diagonal VBX stent)
8. Ultrasound-guided percutaneous access to the left common femoral artery
9. Diagnostic aortobiiliac arteriogram
10. Diagnostic right lower extremity arteriogram
Plan:
Continue Plavix 75mg PO daily, given evidence of PAD would recommend initiation of statin
From a vascular perspective can dc heparin infusion and restart home OAC, would consider dose change to Eliquis 2.5mg PO daily due to age over 82 and creat over 1.5, relayed to hospitalist
Can remove Tegaderm this afternoon
Follow up placed in dc instructions, we will sign of please call with questions or concerns
Subjective Data
-
Date of Service: March 30, 2025
Patient seen and examined at bedside, offers no complaints in regards to vascular procedure. Denies pain at left puncture site.
Objective Data
-
Vital Signs
Temp Pulse Resp BP Pulse Ox
97.7 F 61 18 138/66 97
03/30/25 03:00 03/30/25 03:00 03/30/25 03:00 03/30/25 03:00 03/30/25 03:00
Intake and Output
03/29/25 03/30/25 03/31/25
06:59 06:59 06:59
Intake Total 360 / 360
Output Total 300 / 300
Balance 60 / 60
Intake:
Oral fluids 360 / 360
Output:
Urine, Voided 300 / 300
Other:
How many times incontinent 2
MODERATE amount urine
Number of approximated MODERATE 2
amounts of urine
Lab Results
03/30/25 07:44
Calcium 9.2 mg/dl (8.4-10.2) 03/29/25 05:51
Phosphorus 3.7 mg/dl (2.5-4.5) 03/26/25 04:02
Magnesium 2.1 mg/dl (1.6-2.3) 03/26/25 04:02
Total Bilirubin 0.4 mg/dl (0.2-1.3) 03/29/25 05:51
AST 24 U/L (17-59) 03/29/25 05:51
ALT 25 U/L (0-50) 03/29/25 05:51
Alkaline Phosphatase 115 U/L (38-126) 03/29/25 05:51
Total Protein 6.1 g/dl (6.3-8.2) L 03/29/25 05:51
Albumin 3.3 g/dl (3.5-5.0) L 03/29/25 05:51
Physical Exam
-
AO x 3
No tachypnea on room air
No tachycardia
Abdomen soft
Left groin puncture site clean, dry, and intact, no evidence of hematoma, all surrounding compartments soft
Right foot warm, dressing CDI
[2025-03-30 08:00] VITALS: BP 134/67
[2025-03-30 08:03] LABS: APTT 56.6 Sec (23.4-35.0)
--- NOTE | 2025-03-30 09:05 | W.PN.CARDCBS ---
Today's Communication / Plan
-
Outpt cardiac follow up
Impression / Plan
-
.
Certified Nurse Practitioner: Dr Tan Galo
Impression:
s/p right LE vascular procedures 03/29 as noted:
1. Intravascular lithotripsy to right external iliac artery occlusion (8 mm M5+)
2. Balloon angioplasty and stenting of right external iliac artery occlusion (2 overlapping 8 mm x 59 mm [place] VBX stents)
3. Balloon angioplasty and drug-eluting stent placement to right superficial femoral artery (6 mm x 140 mm Zilver PTX)
4. Mechanical thrombectomy of right common femoral artery and superficial femoral artery (Penumbra Lightening [place] 7)
5. Balloon angioplasty of distal posterior tibial artery occlusion (2 mm x 40 mm angioplasty balloon)
6. Balloon angioplasty of peroneal artery occlusion (2.5 mm x 220 mm angioplasty balloon)
7. Balloon angioplasty and stenting of right common iliac artery stenosis (8 mm x 39 mm [place] VBX stent)
Hx Peripheral vascular disease with occluded right external iliac artery
Hypertension
Hyperlipidemia
Right bundle branch block
CKD 3-4
DVT status post IVC filter
Possible CAD
Echo 08/29: LVEF 55%, no significant valve disease, inferior basal akinesis
Echo Mar 2025: Normal left ventricular size and overall, normal left ventricular systolic function. Mild concentric left ventricular hypertrophy. There are no regional wall motion abnormalities noted. Left ventricular ejection fraction is 55% by
volumetric assessment.Mild TR
Plan:
He presented as a preop evaluation prior to possible vascular surgery. He has no chest pains or shortness of breath and can swim with no symptoms for 20 minutes.
Remains stable from cardiac standpoint
Echo remains stable.
Bp stable on Norvasc and flomax
Cont Zetia for hyperlipidemia
Transition to oral Eliquis as per vascular for hx DVT.
Will arrange outpt follow up.
Please recall if needed.
Discussed with and nursing.
Progress Note - Certified Nurse Practitioner
Subjective
Date of Service: March 30, 2025
Pt seen and examined. No complaints. No chest pain or shortness of breath.
Objective
Labs:
03/30/25 07:44
Labs
Hgb 11.6 g/dL (13.0-18.0) L 03/30/25 07:44
Hct 35.1 % (39.0-52.0) L 03/30/25 07:44
Plt Count 149 10^3/uL (130-400) 03/30/25 07:44
PT 18.5 Sec (11.4-14.6) H 03/25/25 11:49
INR 1.52 03/25/25 11:49
APTT 56.6 Sec (23.4-35.0) H 03/30/25 07:44
Sodium 141 mmol/L (135-145) 03/29/25 05:51
Potassium 4.5 mmol/L (3.5-5.1) 03/29/25 05:51
BUN 34 mg/dl (9-20) H 03/29/25 05:51
Creatinine 1.9 mg/dL (0.7-1.3) H 03/29/25 05:51
Glucose 117 mg/dl (70-99) H 03/29/25 05:51
Vital Signs and I&O:
Vital Signs
Temp Pulse Resp BP Pulse Ox
97.7 F 73 18 134/67 97
03/30/25 08:00 03/30/25 08:00 03/30/25 08:00 03/30/25 08:00 03/30/25 08:00
Vital Signs
Temp Pulse Resp BP Pulse Ox
97.7 F 73 18 134/67 97
03/30/25 08:00 03/30/25 08:00 03/30/25 08:00 03/30/25 08:00 03/30/25 08:00
Intake & Output
03/28/25 03/29/25 03/30/25 03/31/25
06:59 06:59 06:59 06:59
Intake Total 360 / 360
Output Total 300 / 300 300 / 300
Balance -300 / -300 60 / 60
Physical Exam
Physical Exam
General: No acute distress, AAOX3
Neck: Negative JVD
Heart: Regular, Negative S3 positive S1/S2, Negative S4, No murmur
Lungs: CTA b/l, negative wheezes/rales/rhonchi
Abd: Positive BS, NT/ND, neg rebound/rigidity/guarding
Ext: Negative cyanosis/clubbing/edema
Neuro: nonfocal
[2025-03-30 09:28] LABS: ALT (SGPT) 22 U/L (0-50); AST (SGOT) 22 U/L (17-59); Albumin 3.3 g/dl (3.5-5.0); Alkaline Phosphatase 115 U/L (38-126); Blood Urea Nitrogen 31 mg/dl (9-20); Calcium 8.8 mg/dl (8.4-10.2); Carbon Dioxide 24 mmol/L (22-30); Chloride 106 mmol/L (98-107); Estimated Creatinine Clearance 27 ml/min; Glucose 133 mg/dl (70-99); Potassium 4.4 mmol/L (3.5-5.1); Total Protein 6.1 g/dl (6.3-8.2); eGFR 35.98
[2025-03-30 09:37] LABS: Sodium 137 mmol/L (135-145)
[2025-03-30] MEDS: ELIQUIS 2.5 MG PO ×2 (09:51→10:15)
[2025-03-30] MEDS: ULORIC 40 MG PO (09:52)
[2025-03-30] MEDS: NORVASC 7.5 MG PO (09:52)
[2025-03-30] MEDS: ZETIA 10 MG PO (09:52)
[2025-03-30] MEDS: PLAVIX 75 MG PO (09:52)
[2025-03-30] MEDS: VITAMIN D3 (cholecalciferol) 25 MCG PO (09:55)
--- NOTE | 2025-03-30 11:47 | W.DCSUMMARY ---
Discharge Summary
Discharge Data
Date of Admission: 03/25/25
Date of Discharge: 03/30/25
-
Pending Results: No
Hospital Course
Mr. Luke is an 89-year-old male with a medical history of prostate and bladder cancer, DVT (on Eliquis), and peripheral arterial disease with chronic right lower extremity ischemia who presented with right leg pain and concern for infected
arterial ulcer. After evaluation his ulcer did not appear infected and antibiotics were discontinued. CT angiography of the abdominal aorta with runoff showed occlusion of the right external iliac artery with reconstitution at the level of the
right common femoral artery, no flow appreciated along the course of the right anterior tibial artery. His Eliquis was held and he was anticoagulated with IV heparin while inpatient.
He was evaluated by vascular surgery and brought to the OR for angiogram and vascular intervention on 03/29/2025, which involved:
1. Intravascular lithotripsy to right external iliac artery occlusion (8 mm M5+)
2. Balloon angioplasty and stenting of right external iliac artery occlusion (2 overlapping 8 mm x 59 mm [place] VBX stents)
3. Balloon angioplasty and drug-eluting stent placement to right superficial femoral artery (6 mm x 140 mm Zilver PTX)
4. Mechanical thrombectomy of right common femoral artery and superficial femoral artery (Penumbra Lightening [place] 7)
5. Balloon angioplasty of distal posterior tibial artery occlusion (2 mm x 40 mm angioplasty balloon)
6. Balloon angioplasty of peroneal artery occlusion (2.5 mm x 220 mm angioplasty balloon)
7. Balloon angioplasty and stenting of right common iliac artery stenosis (8 mm x 39 mm [place] VBX stent)
8. Ultrasound-guided percutaneous access to the left common femoral artery
9. Diagnostic aortobiiliac arteriogram
10. Diagnostic right lower extremity arteriogram
He tolerated the vascular intervention well and reported resolution of the pain in his right lower extremity following the procedure. He will be continued on Plavix and full-strength Eliquis. He will need ongoing wound care and close outpatient
vascular follow-up. 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 His hematuria was resolving at the time of discharge. He was instructed to monitor his urine output and
seek medical attention if he suddenly became unable to urinate. At time of hospital discharge he was medically stable. He will also need to follow-up with his primary care physician after discharge.
General: No Apparent Distress, Comfortable and Conversant
HEENT: NormoCephalic, Moist mucous membranes, Atraumatic
Respiratory: Clear and Non Labored Respirations
Cardiac: S1/S2 and Regular Rhythm; No Rub or Gallop
GI: Soft, Non Tender, Non Distended and Normal Bowel Sounds
Musculoskeletal: No Edema, right foot with wound dressing CDI, distal sensation intact
: NO Macias
Neuro: Awake, Alert, Nonfocal/grossly intact
Psych: Calm and cooperative
Discharge Plan
-
Patient Disposition: Home (Routine Discharge)
Discharge Diagnosis/Procedures: Ischemic right foot wound
Activity: No strenuous activity
Bathing Restrictions: OK to Shower
Others Tests: Ultrasound appt: 04/22 @ 10:30
Activity Restrictions/Additional Instructions:
You were admitted for management of your right foot wound which was due to occluded arteries in your right leg. You underwent a procedure with vascular surgery on 03/29/2025 to remove some of the blockages and keep the arteries open with the
placement of stents. You tolerated the procedure well. You will be continued on 2 blood thinners (Plavix and Eliquis) to help prevent the blockages in your blood vessels from returning. Because you are on blood thinners you are at increased risk
for bleeding. You do have blood in your urine occasionally which is likely related to your prior radiation from your cancer treatments. You should monitor your urine output and seek medical attention if you are suddenly unable to urinate. You
will need close follow-up with the vascular surgery team in their outpatient office. You should also follow-up closely with your primary care physician.
Stand Alone Forms: Vascular Surg Discharge Instr
Referrals:
Jaleel Arce MD [Family Provider, Internal Medicine]
Natalya Daly CRNP [Specified Professional Personl, Vascular Surgery] - 04/28/25 2:00 pm
Referral Note: Vascular office follow up
Prescriptions:
New
atorvastatin 10 mg Tablet
10 mg PO QPM 90 Days Qty: 90 0RF
clopidogrel 75 mg Tablet
75 mg PO DAILY 90 Days Qty: 90 0RF
Continued
amlodipine 5 mg Tablet
7.5 mg PO DAILY
ezetimibe 10 mg Tablet
10 mg PO DAILY
febuxostat [Uloric] 40 mg Tablet
40 mg PO DAILY
tamsulosin 0.4 mg Capsule
0.4 mg PO HS 30 Days Qty: 30 0RF
cholecalciferol (vitamin D3) [Vitamin D3] 25 mcg (1,000 unit) Tablet
25 mcg PO DAILY
Eliquis 5 mg Tablet
5 mg PO BID 30 Days Qty: 60 0RF
Discharge Orders:
Discharge Patient (As Directed); Ordered 03/30/25
Ordered By: Juan Luis Huston
Discharge Date and Time
Print Language: DANISH
[2025-03-30] MEDS: FLUZONE HIGH-DOSE 2025-26 0.5 ML IM (12:25)
--- NOTE | 2025-03-30 12:56 | CM ---
Chart reviewed and patient is for discharge to home today with spouse and [facility].
Plan; Home with [facility].
== END 2025-03-30 12:46 | disposition home health service (06) | DRG 279 ==
LOC: 4 WEST ACU 14:38
PROVIDERS: Clinical Nurse Specialist Family Health; Internal Medicine; Nurse Practitioner Family; Physician Assistant Medical; ADMITTING PHYSICIAN Hospitalist; ATTENDING PHYSICIAN Internal Medicine; CONSULT PHYSICIAN Internal Medicine Cardiovascular Disease; CONSULT PHYSICIAN Internal Medicine Nephrology; CONSULT PHYSICIAN Surgery Vascular Surgery; EMERGENCY PHYSICIAN Student in an Organized Health Care Education/Training Program; FAMILY PHYSICIAN Internal Medicine; OTHER PHYSICIAN Student in an Organized Health Care Education/Training Program
PROC: B41C1ZZ Fluoroscopy of Pelvic Arteries using Low Osmolar Contrast (ICD-10-PCS; 2025-03-29)
PROC: B4101ZZ Fluoroscopy of Abdominal Aorta using Low Osmolar Contrast (ICD-10-PCS; 2025-03-29)
PROC: 04FH3ZZ Fragmentation of Right External Iliac Artery, Percutaneous Approach (ICD-10-PCS; 2025-03-29)
PROC: 047C3DZ Dilation of Right Common Iliac Artery with Intraluminal Device, Percutaneous Approach (ICD-10-PCS; 2025-03-29)
PROC: 047T3ZZ Dilation of Right Peroneal Artery, Percutaneous Approach (ICD-10-PCS; 2025-03-29)
PROC: B41F1ZZ Fluoroscopy of Right Lower Extremity Arteries using Low Osmolar Contrast (ICD-10-PCS; 2025-03-29)
PROC: 047H3EZ Dilation of Right External Iliac Artery with Two Intraluminal Devices, Percutaneous Approach (ICD-10-PCS; 2025-03-29)
PROC: 047R3ZZ Dilation of Right Posterior Tibial Artery, Percutaneous Approach (ICD-10-PCS; 2025-03-29)
PROC: 047K3DZ Dilation of Right Femoral Artery with Intraluminal Device, Percutaneous Approach (ICD-10-PCS; 2025-03-29)
PROC: 3E02340 Introduction of Influenza Vaccine into Muscle, Percutaneous Approach (ICD-10-PCS; 2025-03-30)
DX: I70.261 Atherosclerosis of native arteries of extremities with gangrene, right leg (principal); N18.4 Chronic kidney disease, stage 4 (severe); I74.5 Embolism and thrombosis of iliac artery; I70.92 Chronic total occlusion of artery of the extremities; L97.519 Non-pressure chronic ulcer of other part of right foot with unspecified severity; M10.9 Gout, unspecified; E78.00 Pure hypercholesterolemia, unspecified; I12.9 Hypertensive chronic kidney disease with stage 1 through stage 4 chronic kidney disease, or unspecified chronic kidney disease; N40.0 Benign prostatic hyperplasia without lower urinary tract symptoms; R80.9 Proteinuria, unspecified; I45.10 Unspecified right bundle-branch block; I25.10 Atherosclerotic heart disease of native coronary artery without angina pectoris; I70.8 Atherosclerosis of other arteries; R31.9 Hematuria, unspecified; Z85.46 Personal history of malignant neoplasm of prostate; Z86.718 Personal history of other venous thrombosis and embolism; Z79.01 Long term (current) use of anticoagulants; Z79.899 Other long term (current) drug therapy; Z85.51 Personal history of malignant neoplasm of bladder; Z95.828 Presence of other vascular implants and grafts; Z92.3 Personal history of irradiation; Z87.891 Personal history of nicotine dependence; Z88.0 Allergy status to penicillin; Z88.8 Allergy status to other drugs, medicaments and biological substances; Z23 Encounter for immunization; Z79.02 Long term (current) use of antithrombotics/antiplatelets
CPT/HCPCS: 37186; 37226; 37228; 37232; 73630; 75625; 75635; 75710; 80048; 80053; 83735; 84100; 85025; 85610; 85730; 86850; 86900; 86901; 90662; 93306; 93922; 93925; 96365; 96366; 96375; 97163; 97166; 99205; 99291; C1725; C1769; C1874; C1894; C9765; G0008; J2997; Q9967

== ENCOUNTER 2025-04-14 15:06 | Inpatient (IN) | payer MEDICARE, BC, SELFPAY ==
[2025-04-14] VITALS (13 sets, daily range): BP systolic 113–143; BP diastolic 51–69; BMI 24.9
[2025-04-14] MEDS: CELEBREX 200 MG PO (15:19)
[2025-04-14] MEDS: TYLENOL 1000 MG PO (15:19)
[2025-04-14] MEDS: NORMOSOL-R/PLASMALYTE-A 1000 IV (15:31)
--- NOTE | 2025-04-14 18:43 | W.PN.UPDATE ---
Update Note
Progress Note Update
89M s/p right foot excisional debridement with application of NPWT
- would appreciate admission to hospitalist service
- Anticipate return to OR early next week (Friday)
-- marginal bleeding today, would appreciate vascular recommendations
- Strict NWB RLE
- Empiric abx (vanc & zosyn)
-- wound cx x2 (prelavage and post lavage to tailor abx)
- NPWT to remain running continuous @125mmHg
-- please keep plugged in at all times, please notify if pressure lost for >2hrs or >200cc in canister in 24hr period
- will reassess on AM rounds
--- NOTE | 2025-04-14 19:21 | HPS.HSE ---
Family Physician
-
Family Physician: NO INTERVIEW UNKNOWN
Chief Complaint
-
right foot excisional debridement with application of NPWT
History of Present Illness
Patient is a 89-year-old male with past medical history significant for hypertension, hypercholesterolemia, PVD, gout, Hx prostate cancer and Hx DVT who presented to [facility] for scheduled right foot excisional debridement with application of NPWT.
Patient with scheduled debridement of right foot wound emergently at recent office visit. Patient and spouse were present at visit that discussed options for treatment for PVD wound on right foot and elected debridement. Patient offers no complaints
when seen in PACU for admission assessment.
Medical History
Past Medical History
Past Medical History: Reports Other
Additional Past Medical History:
hypertension
hypercholesterolemia
PVD
gout
Hx prostate cancer
Hx DVT
Past Surgical History: Reports Other
Additional Past Surgical History:
bladder resection
eye lid repair
right foot wound debridement
Social History
Tobacco: Former Smoker
Personal:
Living: With Family
Family History
Family History: Not pertinent
Allergies / Home Medications
Allergies reflects when Allergies were last updated in [employer].
Home Medications with original date entered in [employer]
Allergy/Medication List:
Allergies
Allergy/AdvReac Type Severity Reaction Status Date / Time
allopurinol Allergy Rash Verified 04/14/25 15:01
amoxicillin Allergy Hives Verified 04/14/25 15:01
Home Medications
amlodipine 5 mg tablet 7.5 mg PO DAILY Blood Pressure 01/18/25
ezetimibe 10 mg tablet 10 mg PO DAILY High Cholesterol 01/18/25
febuxostat 40 mg tablet (Uloric) 40 mg PO DAILY Gout 01/18/25
tamsulosin 0.4 mg capsule 0.4 mg PO HS 30 days #30 caps 01/20/25
cholecalciferol (vitamin D3) 25 mcg (1,000 unit) tablet (Vitamin D3) 25 mcg PO DAILY Supplement 03/25/25
apixaban 5 mg tablet (Eliquis) 5 mg PO BID 30 days #60 tabs 03/30/25
atorvastatin 10 mg tablet 10 mg PO QPM 90 days #90 tabs 03/30/25
clopidogrel 75 mg tablet 75 mg PO DAILY 90 days #90 tabs 03/30/25
Review of Systems
-
History Source: Patient
Constitutional: Reports No Symptoms
EENT: Reports No Symptoms
Respiratory: Reports No Symptoms
Cardiac: Reports No Symptoms
Abdomen/GI: Reports No Symptoms
: Reports No Symptoms
Musculoskeletal: Reports Other (right foot wound )
Skin: Reports Other (right foot wound )
Neurological: Reports No Symptoms
Endocrine: Reports No Symptoms
Hematologic/Lymphatic: Reports No Symptoms
Psych: Reports No Symptoms
Physical Exam
Vital Signs
Vital Signs
Temp Pulse Resp BP Pulse Ox
98.5 F 64 12 135/60 97
04/14/25 18:41 04/14/25 19:00 04/14/25 18:45 04/14/25 18:45 04/14/25 19:00
Physical Exam
General: Well Developed, Well Nourished, No Apparent Distress, Comfortable and Conversant
HEENT: NormoCephalic, PERRLA, Nose Appears Normal and Ears Appear Normal
Respiratory: Clear, Non Labored Respirations and Decreased Breath Sounds; No Wheezes, Rales or Rhonchi
Cardiac: S1/S2 and Regular Rhythm; No Tachycardia, Murmur or Peripheral Edema
GI: Soft, Non Tender, Non Distended and Normal Bowel Sounds
Musculoskeletal: No Clubbing, No Cyanosis, No Edema and Other (right foot splinted and wrapped post OR, cap refill <3 seconds)
Skin: Warm, Dry and IV/Catheter Site
Neuro: Awake and AO x 3
Psych: Calm
Impression/Plan
-
IMPRESSION/PLAN:
#right foot wound
s/p right foot excisional debridement with application of NPWT
- Admit to med/surg
- Consult Podiatry
- IV Vanco and Zosyn
- NWB to RLE
- wound culture pending
- NPWT to remain running continuous @ 125mmHg
- please keep plugged in at all times, please notify if pressure lost for >2hrs or >200cc in canister in 24hr period
- pain regimen
#hypertension
- continue amlodipine
#hypercholesterolemia
- continue atorvastatin and ezetimibe
#PVD
- continue clopidogrel
#gout
- continue febuxostat
#Hx prostate cancer
s/p resection
- continue tamsulosin
#Hx DVT
- continue Eliquis post surgical intervention
- heparin gtt for now
Code status: full code
DVT prophylaxis: heparin gtt
--- NOTE | 2025-04-14 20:23 | W.PN.UPDATE ---
Update Note
Progress Note Update
Patient seen in conjunction with [employer]. I agree with the findings and history and physical. I concur with assessment and plan listed otherwise.
Patient is a 89-year-old male with a medical history of prostate and bladder cancer, DVT (on Eliquis), and peripheral arterial disease with chronic right lower extremity ischemia who presented with right leg pain recently and concern for infected
arterial ulcer. CT angiography of the abdominal aorta with runoff showed occlusion of the right external iliac artery with reconstitution at the level of the right common femoral artery, no flow appreciated along the course of the right anterior
tibial artery. He had extensive angioplasty to the right lower extremity with stent placement and continued on Plavix and full-strength Eliquis. He will need ongoing wound care and close outpatient vascular follow-up. He had a podiatry follow-up
and at that visit there was concern for worsening infection/necrosis of the right lower extremity and he was scheduled for urgent debridement. He is now status post right foot excisional debridement with application of NPWT. Plan to return to OR
on Friday.
In the PACU he was hemodynamically stable, blood pressure was 139/69 with a pulse of 65 and he was satting 98% on room air.
Assessment and plan
Right lower extremity necrotic wound status post surgical I&D
- Admit to [facility]
- Plan to return to OR early next week, hold Eliquis bridged with heparin for now
- Tissue and wound culture sent, empiric antibiotics with bank Zosyn
- NPWT to remain per podiatry
- Vascular consult
- Podiatry consult
DVT PPX - h/o DVT
- heparin gtt for now
Code status - Full Code
[2025-04-14] MEDS: FLOMAX 0.4 MG PO (21:41)
[2025-04-14 22:08] LABS: Hematocrit 33.0 % (39.0-52.0); Hemoglobin 10.8 g/dL (13.0-18.0); Mean Corp Hgb Conc. 32.7 g/dL (33.0-37.0); Mean Corpuscular Volume 88.2 fL (80.0-94.0); Nucleated Red Blood Cells % 0 % (-); Platelet Count 191 10^3/uL (130-400); Red Cell Dist. Width 13.2 % (11.5-14.5)
[2025-04-14 22:15] LABS: APTT 40.5 Sec (23.4-35.0)
[2025-04-14 22:31] LABS: ALT (SGPT) 17 U/L (0-50); AST (SGOT) 17 U/L (17-59); Albumin 3.5 g/dl (3.5-5.0); Alkaline Phosphatase 134 U/L (38-126); Blood Urea Nitrogen 31 mg/dl (9-20); Calcium 8.9 mg/dl (8.4-10.2); Carbon Dioxide 23 mmol/L (22-30); Chloride 104 mmol/L (98-107); Estimated Creatinine Clearance 27 ml/min; Glucose 192 mg/dl (70-99); Potassium 4.5 mmol/L (3.5-5.1); Sodium 132 mmol/L (135-145); Total Protein 6.5 g/dl (6.3-8.2); eGFR 35.98
[2025-04-14] MEDS: ZOSYN 50 IV (23:44)
[2025-04-15] VITALS (8 sets, daily range): BP systolic 117–151; BP diastolic 57–69; PULSE 87; O2SAT 99
[2025-04-15] MEDS: ROXICODONE 5 MG PO ×2 (00:45→21:15)
[2025-04-15] MEDS: HEPARIN 25000 UNITS/250 ML IV ×2 (00:45→19:10)
[2025-04-15] MEDS: HEPARIN 5800 UNITS IV (00:53)
[2025-04-15] MEDS: ZOSYN 50 IV ×3 (05:55→17:22)
[2025-04-15 07:42] LABS: APTT > 200 Sec (23.4-35.0)
--- NOTE | 2025-04-15 08:21 | VNURNOTE ---
Chart reviewed. Patient is current with [facility]. Will continue to follow hospital course and DC plans.
[2025-04-15] MEDS: NORVASC 7.5 MG PO (08:47)
[2025-04-15] MEDS: ULORIC 40 MG PO (08:47)
[2025-04-15] MEDS: PLAVIX 75 MG PO (08:48)
[2025-04-15] MEDS: ZETIA 10 MG PO (08:48)
--- NOTE | 2025-04-15 09:05 | PHA.VAN.IN ---
Assessment
- Assessment
Renal Function: Appears similar to baseline
Concomitant Antimicrobials: piperacillin/tazobactam
Plan
- Plan
Initial / Loading Dose: 2000mg - 04/14 18:19
Maintenance Regimen: dosing by level - give 1g x1 today
Monitoring: random 04/16 06
Pharmacokinetics Vancomycin I
- -
Patient Age: 89
Patient Sex: Male
Vancomycin Day #: 1
Indication: Skin And Soft Tissue
Requesting Provider: Genoveva Roy
Pertinent Antimicrobial Allergies:
amoxicillin - hives - a long time ago / rash
Height / Weight:
Height 5 ft 7 in
Actual Weight 72.121 kg
Pertinent Past Medical History: CKD (Baseline ~1.9-2.1)
- Vital Signs / Lab Results
Temp Pulse Resp BP Pulse Ox
97.7 F 63 16 135/61 99
04/15/25 07:30 04/15/25 07:30 04/15/25 07:30 04/15/25 07:30 04/15/25 07:30
Lab Results - Hematology
04/14/25
21:50
WBC 4.5 L
Lab Results - Chemistry
04/14/25
21:50
BUN 31 H
Creatinine 1.8 H
Estimated Creat Clear 27
Albumin 3.5
Microbiology Results
04/14/25 18:17 Gram Stain - Preliminary
Foot - Right
04/14/25 18:14 Gram Stain - Preliminary
Foot - Right
--- NOTE | 2025-04-15 09:34 | CON.VAS ---
Addendum entered and electronically signed by Sergey Macias III, MD 04/15/25 14:40:
This patient was seen and examined in collaboration with TONY Cross. I agree with the history and physical exam as well as the assessment and plan. I have the following additions:
Patient well-known to me after recent extensive right lower extremity endovascular intervention for limb threatening ischemia
Has undergone debridement of the dorsal right foot wound
Nontoxic on exam
Right foot is wrapped with a VAC dressing in place
Toes appear pink and well-perfused
Will plan to update his lower extremity arterial studies today
May be worth a second look arteriogram to evaluate perfusion to the dorsal aspect of the foot where the wound is following extensive endovascular intervention. Timing of this remains to be determined.
Signed:
Sergey Macias III, MD
Vascular Surgery
[facility]
Original Note:
Consultation
Consultation Request
Date/Time Consultation Performed: 04/15/2025 7:30 AM
Performing Provider: Colleen
Reason for Consultation: Nonhealing right foot wound/PAD
Medical History
-
Chief Complaint: Infected right foot wound
History of Present Illness:
89-year-old male with past medical history significant for hypertension, hypercholesterolemia, PVD, history of DVT with filter placement presented last night for scheduled right foot excisional debridement and wound VAC with podiatry. Patient
admitted postop for monitoring. Podiatry plans to return to the OR with patient Friday. Patient most recently seen by our service on 03/29/2025 when he had extensive endo revascularization with Dr. Macias. Vascular consult for PAD evaluation in
setting of nonhealing right foot wound.
Patient seen at bedside this a.m. with Dr. Macias. Patient has wound VAC on right forefoot with no leak. No DP Doppler signal, excellent PT Doppler signal noted.
03/29/2025: Intravascular lithotripsy to right external iliac artery occlusion (8 mm M5+)
Balloon angioplasty and stenting of right external iliac artery occlusion (2 overlapping 8 mm x 59 mm Elkins VBX stents)
Balloon angioplasty and drug-eluting stent placement to right superficial femoral artery (6 mm x 140 mm Zilver PTX)
Mechanical thrombectomy of right common femoral artery and superficial femoral artery (Penumbra Lightening [place] 7)
Balloon angioplasty of distal posterior tibial artery occlusion (2 mm x 40 mm angioplasty balloon)
Balloon angioplasty of peroneal artery occlusion (2.5 mm x 220 mm angioplasty balloon)
Balloon angioplasty and stenting of right common iliac artery stenosis (8 mm x 39 mm Elkins VBX stent)
Past Medical History
Past Medical History: Other (Hypertension, hypercholesterolemia, PVD, DVT, prostate CA, cataracts, psoriasis, gout, bladder resection)
Past Surgical History: Other (See above)
Social History
Tobacco: Former Smoker
Family History
Family History: CAD
Allergies / Home Medications
Allergy/AdvReac Type Severity Reaction Status Date / Time
allopurinol Allergy Rash Verified 04/14/25 15:01
amoxicillin Allergy Hives-a Verified 04/14/25 20:50
long time
ago-'rash'
�Medication �Instructions �Recorded �Confirmed �Type
amlodipine 5 mg tablet 7.5 mg PO DAILY Blood Pressure 01/18/25 04/14/25 History
ezetimibe 10 mg tablet 10 mg PO DAILY High Cholesterol 01/18/25 04/14/25 History
febuxostat 40 mg tablet (Uloric) 40 mg PO DAILY Gout 01/18/25 04/14/25 History
tamsulosin 0.4 mg capsule 0.4 mg PO HS 30 days #30 caps 01/20/25 04/14/25 Rx
cholecalciferol (vitamin D3) 25 25 mcg PO DAILY Supplement 03/25/25 04/14/25 History
mcg (1,000 unit) tablet (Vitamin
D3)
apixaban 5 mg tablet (Eliquis) 5 mg PO BID 30 days #60 tabs 03/30/25 04/14/25 Rx
atorvastatin 10 mg tablet 10 mg PO QPM 90 days #90 tabs 03/30/25 04/14/25 Rx
clopidogrel 75 mg tablet 75 mg PO DAILY 90 days #90 tabs 03/30/25 04/14/25 Rx
Review of Systems
-
History Source: Patient
All other systems: Negative unless noted
Constitutional: Reports No Symptoms
EENT: Reports No Symptoms
Respiratory: Reports No Symptoms
Cardiac: Reports No Symptoms
Vascular: Denies Leg Pain / Claudication
Abdomen/GI: Reports No Symptoms
: Reports No Symptoms
Musculoskeletal: Reports No Symptoms
Skin: Reports Other (Nonhealing right forefoot wound)
Neurological: Reports No Symptoms
Physical Exam
Vital Signs
Temp Pulse Resp BP Pulse Ox
97.7 F 63 16 135/61 99
04/15/25 07:30 04/15/25 07:30 04/15/25 07:30 04/15/25 07:30 04/15/25 07:30
Lab Results
04/14/25 21:50
04/14/25 21:50
Physical Exam
General: No Apparent Distress
HEENT: Normocephalic and Atraumatic
Respiratory: Non Labored Respirations
Cardiac: Negative JVD
GI: Soft and Non Tender
Musculoskeletal: No Clubbing, No Cyanosis and No Edema
Skin: Warm and Other (VAC in place)
Neuro: Awake, Alert and Oriented
Psych: Calm
Pulses: Right Posterior Tibial: Doppler
Assessment / Plan
-
89-year-old male with nonhealing right forefoot wound status post DVT and recent extensive endo revascularization on 03/29/2025
Plan:
Pre limflow ultrasound, MAGGIE/TBI/duplex, DVT study right lower extremity, iliac/aorta ultrasound
Will follow-up with patient when studies complete for plan
Data Reviewed
-
Labs: Labs Reviewed by me
[2025-04-15] MEDS: VANCOCIN 200 IV (13:15)
--- NOTE | 2025-04-15 14:54 | CM ---
I.A: Completed By FAVIO Barber.
Patient lives in a 1 Story Home with 1 step to enter, uses a rolling walker as well as a transport chair, No other DME. Has [facility] and will need for this for wound care.
PCP: Jaleel Arce
Pharmacy: [facility] on [facility]
Patient has transportation home. PLAN: [facility] w/ wound care.
--- NOTE | 2025-04-15 15:05 | PTCARENOTE ---
When I reviewed the Heparin order I realized that the nurse on the previous shift had started the drip at the wrong rate.It should have been at 1300 units per hour for the initial rate but was instead started at 1800 units per hour.I immediately
stopped it and notified the provider.The doctor I first notified I did not get any response so I notified the surgeon.I held it for 2 hours then restarted it at the correct rate of 1300 units per hour.PTT is due at 1600.Willmonotor results and
follow protocol.
--- NOTE | 2025-04-15 15:39 | W.PN.UPDATE ---
Update Note
Progress Note Update
89M s/p right foot excisional debridement with application of NPWT. DOing well this AM. sensation at baseline, cft wnl, calf soft supple nontedner to touch
- Anticipate return to OR early next week (Friday)
-- marginal bleeding today, would appreciate vascular recommendations
- Strict NWB RLE
- Empiric abx (vanc & zosyn)
-- wound cx x2 (prelavage and post lavage to tailor abx)
- NPWT to remain running continuous @125mmHg. Next wound vac change will be in OR
-- please keep plugged in at all times, please notify if pressure lost for >2hrs or >200cc in canister in 24hr period
- will continue to monitor in periop period
--- NOTE | 2025-04-15 16:26 | WOUNDNOTE ---
WOC RN Note: Notified [employer] of hospital rental vac ulta pump rental started on 04/14/25 (vac serial #[id number]).
[2025-04-15] MEDS: LIPITOR 10 MG PO (17:22)
[2025-04-15 18:07] LABS: APTT 190.8 Sec (23.4-35.0)
--- NOTE | 2025-04-15 18:45 | W.PN.HOSP.TC ---
Today's Communication/Plan
-
pain control
hep gtt
IV abx
Follow-up on the wound VAC
Assessment / Plan
Assessment / Plan
General: Well Developed, Well Nourished, No Apparent Distress, Comfortable and Conversant
HEENT: NormoCephalic, Nose Appears Normal and Ears Appear Normal
Respiratory: Clear, Non Labored Respirations and Decreased Breath Sounds; No Wheezes, Rales or Rhonchi
Cardiac: S1/S2 and Regular Rhythm; No Tachycardia, Murmur or Peripheral Edema
GI: Soft, Non Tender, Non Distended and Normal Bowel Sounds
Musculoskeletal: No Clubbing, No Cyanosis, No Edema and Other (right foot splinted and wrapped post OR, wound VAC noted
Skin: Warm, Dry and IV/Catheter Site
Neuro: Awake and AO x 3
Psych: Calm
#Right lower extremity necrotic wound status post surgical I&D
s/p right foot excisional debridement with application of NPWT
- IV Vanco and Zosyn
- NWB to RLE
- wound culture pending
- NPWT to remain running continuous @ 125mmHg
- please keep plugged in at all times, please notify if pressure lost for >2hrs or >200cc in canister in 24hr period
- pain regimen
- Status post arterial Doppler study earlier today. Possibility of Second Look arteriogram during this hospitalization.
- Vascular and podiatry following.
#hypertension
- continue amlodipine
#hypercholesterolemia
- continue atorvastatin and ezetimibe
#PVD
- continue clopidogrel
#gout
- continue febuxostat
#Hx prostate cancer
s/p resection
- continue tamsulosin
#Hx DVT
- Holding Eliquis as plan for multiple procedures.
- heparin gtt for now
Code status: full code
DVT prophylaxis: heparin gtt
Anticipated Discharge: > 48 hours
Subjective/Interval History
-
Date of Service: April 15, 2025
Setting of mild pain to the right foot.
Objective Data
-
Labs:
Laboratory Results
04/15/25 04/15/25 04/15/25
06:44 16:03 16:57
APTT > 200 H* Cancelled 190.8 H*
Vital Signs:
Vital Signs
Temp Pulse Resp BP Pulse Ox
97.8 F 68 16 117/57 98
04/15/25 15:55 04/15/25 15:55 04/15/25 15:55 04/15/25 15:55 04/15/25 15:55
I&O
04/14/25 04/15/25 04/16/25
06:59 06:59 06:59
Intake Total 200 / 200 1060 / 1060
Output Total 625 / 625
Balance 200 / 200 435 / 435
[2025-04-15] MEDS: FLOMAX 0.4 MG PO (21:15)
[2025-04-16] MEDS: ZOSYN 50 IV ×5 (00:48→23:54)
[2025-04-16 01:42] LABS: APTT 126.8 Sec (23.4-35.0)
[2025-04-16 03:00] VITALS: BP 118/49
[2025-04-16 07:40] VITALS: BP 142/66
[2025-04-16 07:47] LABS: Hematocrit 33.2 % (39.0-52.0); Hemoglobin 11.0 g/dL (13.0-18.0); Mean Corp Hgb Conc. 33.1 g/dL (33.0-37.0); Mean Corpuscular Volume 88.1 fL (80.0-94.0); Platelet Count 184 10^3/uL (130-400); Red Cell Dist. Width 13.2 % (11.5-14.5)
[2025-04-16 07:55] LABS: APTT 92.0 Sec (23.4-35.0)
[2025-04-16] MEDS: NORVASC 7.5 MG PO (08:52)
[2025-04-16] MEDS: ULORIC 40 MG PO (08:52)
[2025-04-16] MEDS: PLAVIX 75 MG PO (08:52)
[2025-04-16] MEDS: ZETIA 10 MG PO (08:52)
[2025-04-16 09:07] LABS: Blood Urea Nitrogen 31 mg/dl (9-20); Calcium 9.0 mg/dl (8.4-10.2); Carbon Dioxide 20 mmol/L (22-30); Chloride 108 mmol/L (98-107); Estimated Creatinine Clearance 26 ml/min; Glucose 85 mg/dl (70-99); Potassium 3.8 mmol/L (3.5-5.1); Sodium 136 mmol/L (135-145); eGFR 33.72
--- NOTE | 2025-04-16 10:26 | PHA.VAN.FU ---
Vancomycin Assessment / Plan
- Assessment
Renal Function: SCR Increasing
WBC's are: Stable
In the past 24 hrs, patient has been: Afebrile
Concomitant Antimicrobials: Piperacillin-tazobactam
- Assessment - Therapeutic Drug Monitoring
Random Level: 16.3 ~ 18hrs post Vanc 1gm
- Dosing Plan
Continue: Dose by level
Dosing by Level: Hold off on dosing today
- Monitoring Plan
Random Level: 11/9 AM
- Follow Up
Pharmacy will continue to follow.
Vancomycin Follow UP
- -
Patient Age: 89
Patient Sex: Male
Vancomycin Day #: 2
Indication: Skin And Soft Tissue
Requesting Provider: Genoveva Roy
Pertinent Antimicrobial Allergies:
amoxicillin - hives - a long time ago / rash
Height / Weight:
Height 5 ft 7 in
Actual Weight 72.121 kg
Pertinent Past Medical History: CKD (Baseline ~1.9-2.1)
- Vital Signs / Lab Results
Temp Pulse Resp BP Pulse Ox
97.8 F 60 16 149/70 96
04/16/25 07:40 04/16/25 08:52 04/16/25 07:40 04/16/25 08:52 04/16/25 07:40
Lab Results - Hematology
04/14/25 04/16/25
21:50 07:20
WBC 4.5 L 4.7 L
Lab Results - Chemistry
04/14/25 04/16/25
21:50 07:20
BUN 31 H 31 H
Creatinine 1.8 H 1.9 H
Estimated Creat Clear 27 26
Albumin 3.5
Microbiology Results
04/14/25 21:51 MRSA Screen - Final
Nose No Methicillin Resistant Staphylococcus aureus isolated.
04/14/25 18:14 Wound Culture - Preliminary
Foot - Right Pseudomonas aeruginosa
Gram Stain - Preliminary
04/14/25 18:17 Wound Culture - Preliminary
Foot - Right Gram negative bacilli
Gram Stain - Preliminary
04/14/25 18:17 Anaerobic Culture - Preliminary
Foot - Right Culture pending. Anaerobic cultures are examined after 3
days incubation. Additional information to follow.
04/14/25 18:14 Anaerobic Culture - Preliminary
Foot - Right Culture pending. Anaerobic cultures are examined after 3
days incubation. Additional information to follow.
Therapeutic Drug Monitoring
Random Vancomycin 16.3 ug/ml 04/16/25 07:20
[2025-04-16 11:35] VITALS: BP 128/64
--- NOTE | 2025-04-16 11:44 | W.PN.HOSP.TC ---
Today's Communication/Plan
-
Continue with broad-spectrum antibiotic
Cont with heparin drip
Await vascular/podiatry input
Assessment / Plan
Assessment / Plan
General: Well Developed, Well Nourished, No Apparent Distress, Comfortable and Conversant
HEENT: NormoCephalic, Nose Appears Normal and Ears Appear Normal
Respiratory: Clear, Non Labored Respirations and Decreased Breath Sounds; No Wheezes, Rales or Rhonchi
Cardiac: S1/S2 and Regular Rhythm; No Tachycardia, Murmur or Peripheral Edema
GI: Soft, Non Tender, Non Distended and Normal Bowel Sounds
Musculoskeletal: No Clubbing, No Cyanosis, No Edema and Other (right foot splinted and wrapped post OR, wound VAC noted
Skin: Warm, Dry and IV/Catheter Site
Neuro: Awake and AO x 3
Psych: Calm
#Right lower extremity necrotic wound status post surgical I&D
s/p right foot excisional debridement with application of NPWT
- IV Vanco and Zosyn for now.
- NWB to RLE
- wound culture with polymicrobial growth
- NPWT to remain running continuous @ 125mmHg
- please keep plugged in at all times, please notify if pressure lost for >2hrs or >200cc in canister in 24hr period
- pain regimen
- Status post arterial Doppler study earlier with no clots. Possibility of Second Look arteriogram during this hospitalization.
- Vascular and podiatry following. Await further recommendation
#hypertension
- continue amlodipine
#hypercholesterolemia
- continue atorvastatin and ezetimibe
#PVD
- continue clopidogrel
#gout
- continue febuxostat
#Hx prostate cancer
s/p resection
- continue tamsulosin
#Hx DVT
- Holding Eliquis as plan for multiple procedures.
- heparin gtt for now
#Mild hyponatremia
Resolved
Code status: full code
DVT prophylaxis: heparin gtt
Anticipated Discharge: > 48 hours
Subjective/Interval History
-
Date of Service: April 16, 2025
States some mild pain in the right foot which has improved
Objective Data
-
Labs:
Laboratory Results
04/16/25 04/16/25 04/16/25
01:22 07:20 14:30
WBC 4.7 L
Hgb 11.0 L
Hct 33.2 L
Plt Count 184
APTT 126.8 H 92.0 H Pending
Sodium 136
Potassium 3.8
Chloride 108 H
Carbon Dioxide 20 L
BUN 31 H
Creatinine 1.9 H
Glucose 85
Calcium 9.0
Vital Signs:
Vital Signs
Temp Pulse Resp BP Pulse Ox
97.8 F 60 16 149/70 96
04/16/25 07:40 04/16/25 08:52 04/16/25 07:40 04/16/25 08:52 04/16/25 07:40
I&O
04/15/25 04/16/25 04/17/25
06:59 06:59 06:59
Intake Total 200 / 200 1780 / 1780
Output Total 1085 / 1085
Balance 200 / 200 695 / 695
Data Reviewed
-
Total Time Spent with Patient (in minutes): 55
[2025-04-16 15:02] LABS: APTT 89.5 Sec (23.4-35.0)
[2025-04-16 15:45] VITALS: BP 129/55
[2025-04-16] MEDS: LIPITOR 10 MG PO (17:04)
[2025-04-16] MEDS: FLOMAX 0.4 MG PO (21:21)
[2025-04-16 21:25] LABS: APTT 66.6 Sec (23.4-35.0)
[2025-04-16] MEDS: HEPARIN 2900 UNITS IV (21:52)
[2025-04-16 23:00] VITALS: BP 140/64
[2025-04-17] MEDS: ZOSYN 50 IV ×3 (05:32→17:21)
[2025-04-17 05:38] LABS: APTT 150.7 Sec (23.4-35.0)
[2025-04-17 07:20] LABS: Blood Urea Nitrogen 29 mg/dl (9-20); Calcium 9.1 mg/dl (8.4-10.2); Carbon Dioxide 24 mmol/L (22-30); Chloride 109 mmol/L (98-107); Estimated Creatinine Clearance 22 ml/min; Glucose 86 mg/dl (70-99); Potassium 3.9 mmol/L (3.5-5.1); Sodium 137 mmol/L (135-145); eGFR 28.28
--- NOTE | 2025-04-17 07:46 | PHA.VAN.FU ---
Vancomycin Assessment / Plan
- Assessment
Renal Function: SCR Increasing
In the past 24 hrs, patient has been: Afebrile
Concomitant Antimicrobials: Piperacillin-tazobactam
- Assessment - Therapeutic Drug Monitoring
Random Level: 12.4 ~ 41hrs post Vanc 1gm
- Dosing Plan
Continue: Dosing by level
Dosing by Level: Re-dose today (Vanc 750mg--10.4mg/kg. Administration pending.)
- Monitoring Plan
Random Level: 11/10 AM
- Follow Up
Pharmacy will continue to follow.
Vancomycin Follow UP
- -
Patient Age: 89
Patient Sex: Male
Vancomycin Day #: 3
Indication: Skin And Soft Tissue
Requesting Provider: Genoveva Roy
Pertinent Antimicrobial Allergies:
amoxicillin - hives - a long time ago / rash
Height / Weight:
Height 5 ft 7 in
Actual Weight 72.121 kg
Pertinent Past Medical History: CKD (Baseline ~1.9-2.1)
- Vital Signs / Lab Results
Temp Pulse Resp BP Pulse Ox
98.5 F 65 16 140/64 97
04/16/25 23:00 04/16/25 23:00 04/16/25 23:00 04/16/25 23:00 04/16/25 23:00
Lab Results - Hematology
04/14/25 04/16/25
21:50 07:20
WBC 4.5 L 4.7 L
Lab Results - Chemistry
04/14/25 04/16/25 04/17/25
21:50 07:20 06:16
BUN 31 H 31 H 29 H
Creatinine 1.8 H 1.9 H 2.2 H
Estimated Creat Clear 27 26 22
Albumin 3.5
Microbiology Results
04/14/25 18:14 Wound Culture - Preliminary
Foot - Right Pseudomonas aeruginosa
Gram negative bacilli
Streptococcus agalactiae
Gram Stain - Preliminary
04/14/25 18:17 Wound Culture - Preliminary
Foot - Right Pseudomonas aeruginosa
Gram Stain - Preliminary
04/14/25 18:17 Anaerobic Culture - Preliminary
Foot - Right Culture pending. Anaerobic cultures are examined after 3
days incubation. Additional information to follow.
04/14/25 21:51 MRSA Screen - Final
Nose No Methicillin Resistant Staphylococcus aureus isolated.
04/14/25 18:14 Anaerobic Culture - Preliminary
Foot - Right Culture pending. Anaerobic cultures are examined after 3
days incubation. Additional information to follow.
Therapeutic Drug Monitoring
Random Vancomycin 12.4 ug/ml 04/17/25 06:16
[2025-04-17 08:10] VITALS: BP 132/62
[2025-04-17] MEDS: NORVASC 7.5 MG PO (08:25)
[2025-04-17] MEDS: PLAVIX 75 MG PO (08:25)
[2025-04-17] MEDS: ULORIC 40 MG PO (08:25)
[2025-04-17] MEDS: ZETIA 10 MG PO (08:26)
[2025-04-17] MEDS: VANCOCIN 150 IV (09:46)
--- NOTE | 2025-04-17 10:02 | W.PN.UPDATE ---
Update Note
Progress Note Update
89M s/p right foot excisional debridement with application of NPWT. Doing well this AM. sensation at baseline, cft wnl, calf soft supple nontedner to touch
- Plan return to OR tomorrow, right foot debridement w/ NPWT, possible graft
- Appreciate vascular recommendations
- Strict NWB RLE
- Empiric abx (vanc & zosyn)
-- wound cx x2 (prelavage and post lavage to tailor abx)
-- Post lavage wound cx Pseudomonas
- NPWT to remain running continuous @125mmHg. Next wound vac change will be in OR
-- please keep plugged in at all times, please notify if pressure lost for >2hrs or >200cc in canister in 24hr period
- will continue to monitor in periop period
--- NOTE | 2025-04-17 10:29 | CON.ID ---
Consultation
-
Date/Time Consultation Requested: April 17, 2025 0814
Date/Time Consultation Performed: April 17, 2025 1030
Requesting Provider: Dr. Alen Snow
Performing Provider: Dr. Kaylen Wisdom
Reason for Consultation: Foot infection
Chief Complaint / Past History
Chief Complaint
Foot wound
History of Present Illness
89-year-old male with history of hypertension, gout, PAD, chronic ischemic right foot wound who recently underwent right lower extremity stent 03/29/25, electively admitted April 14 for wound debridement. He reports remote history of right lower
extremity DVT status post IVC filter placement 2006. He developed another extensive right lower extremity DVT January 2025. Due to significant right leg edema, he developed a large blister over the right dorsal forefoot. The blister ruptured
resulting in a nonhealing wound for which he was seeing Dr. Alexander at the wound center. The wound looked necrotic and therefore he was referred to vascular. He was in the hospital March and underwent endovascular procedure of the right lower
extremity. He then followed up with podiatry who admitted him to the hospital April 14 and underwent excisional debridement down to the level of muscle and fascia, placement of NPWT. OR post washout culture grew Pseudomonas. He is currently on
Zosyn. He is going back to the OR tomorrow for further debridement and graft placement. Patient is tolerating current Zosyn and vancomycin. He denies fevers or chills. He is very active and swims every day.
Past History
Additional Past Medical History:
hypertension
hypercholesterolemia
gout
Hx prostate cancer s/p XRT 2006
Hx low grade bladder CA s/p resection
Hx RLE DVT s/p IVC filter 2006; RLE DVT 01/2025
PAD s/p RLE angioplasty and stent 03/29/25
eye lid repair
Allergy History:
allopurinol Allergy (Verified 04/14/25 15:01)
Rash
amoxicillin Allergy (Verified 04/14/25 20:50)
Hives-a long time ago-'rash'
Medications Reviewed: Yes
Current Antibiotics:
Zosyn d4
Vancomycin d4
Social History
Tobacco: Former Smoker
Alcohol: None
Drug: None
Personal:
Living: With Family
Family History
Family History: Not Pertinent
Review of Systems
Review of Systems
General: Negative Fever, Chills or Change in Appetite
HEENT: Negative Sinus Problems or Headache
Cardiovascular: Negative Chest Pain
Respiratory: Negative Dyspnea or Cough
Gasteroenterology: Negative Nausea, Vomiting or Diarrhea
Genital / Urological: Negative Dysuria or Flank Pain
Endocrine: Negative Weakness
All systems: All other systems were reviewed and were negative
Vital Signs
Temp Pulse Resp BP Pulse Ox
98.6 F 65 16 140/64 98
04/17/25 08:10 04/17/25 08:25 04/17/25 08:10 04/17/25 08:25 04/17/25 08:10
Physical Exam
Physical Exam
Constitutional: No Acute Distress and Comfortable
Eyes: No Conjunctival Hemorrhage and Sclera Anicteric
Cardiovascular: Regular Rate and S1/S2
Pulmonary: Clear
Gastrointestinal: Soft, Non Tender, Non Distended and Normal Bowel Sounds
Extremities: Negative Edema
Wound: Other (Right foot dressing with wound vac)
Neurological: AO x 3
Lab / Diagnostic Study Results
04/16/25 07:20
04/17/25 06:16
Abs Immat Gran (auto) 0.0 10^3/uL (0-0.05) 04/14/25 21:50
Absolute Neuts (auto) 3.9 10^3/uL (1.4-6.5) 04/14/25 21:50
Absolute Lymphs (auto) 0.6 10^3/uL (1.2-3.4) L 04/14/25 21:50
Absolute Monos (auto) 0.1 10^3/uL (0.1-0.6) 04/14/25 21:50
Absolute Basos (auto) 0.0 10^3/uL (0-0.2) 04/14/25 21:50
Immature Gran % 0.2 % (0-0.5) 04/14/25 21:50
Neutrophils % 85.3 % (42.2-75.2) H 04/14/25 21:50
Lymphocytes % 12.1 % (20.5-51.1) L 04/14/25 21:50
Monocytes % 1.3 % (1.7-9.3) L 04/14/25 21:50
Eosinophils % 0.7 % (0-6) 04/14/25 21:50
Basophils % 0.4 % (0-2) 04/14/25 21:50
Microbiology Results
Micro:
04/14/25 18:17 Anaerobic Culture - Preliminary
Foot - Right Culture pending. Anaerobic cultures are examined after 3
days incubation. Additional information to follow.
04/14/25 18:14 Wound Culture - Preliminary
Foot - Right Pseudomonas aeruginosa
Klebsiella oxytoca
Streptococcus agalactiae
Gram Stain - Preliminary
04/14/25 18:17 Wound Culture - Preliminary
Foot - Right Pseudomonas aeruginosa
Gram Stain - Preliminary
04/14/25 21:51 MRSA Screen - Final
Nose No Methicillin Resistant Staphylococcus aureus isolated.
04/14/25 18:14 Anaerobic Culture - Preliminary
Foot - Right Culture pending. Anaerobic cultures are examined after 3
days incubation. Additional information to follow.
Assessment / Plan
# Infection of ischemic wound right forefoot
-04/14/25 s/p excisional debridement to muscle and fascia
- post-lavage OR cx: Pseudomonas.
- For further debridement tomorrow and graft placment
- Continue Zosyn (d4)
- DC Vancomycin.
# Condition present on admission:
hypertension
hypercholesterolemia
gout
Hx prostate cancer s/p XRT 2006
Hx low grade bladder CA s/p resection
Hx RLE DVT s/p IVC filter 2006; RLE DVT 01/2025
PAD s/p RLE angioplasty and stent 03/29/25
eye lid repair
--- NOTE | 2025-04-17 11:06 | W.PN.HOSP.TC ---
Today's Communication/Plan
-
NPO PMN for OR tomm
cont hep gtt
stop vanc
Assessment / Plan
Assessment / Plan
General: Well Developed, Well Nourished, No Apparent Distress, Comfortable and Conversant
HEENT: NormoCephalic, Nose Appears Normal and Ears Appear Normal
Respiratory: Clear, Non Labored Respirations and Decreased Breath Sounds; No Wheezes, Rales or Rhonchi
Cardiac: S1/S2 and Regular Rhythm; No Tachycardia, Murmur or Peripheral Edema
GI: Soft, Non Tender, Non Distended and Normal Bowel Sounds
Musculoskeletal: No Clubbing, No Cyanosis, No Edema and Other (right foot splinted and wrapped post OR, wound VAC noted
Skin: Warm, Dry and IV/Catheter Site
Neuro: Awake and AO x 3
Psych: Calm
#Right lower extremity necrotic wound status post surgical I&D
s/p right foot excisional debridement with application of NPWT
- Continue with Zosyn. Stop vancomycin.
- NWB to RLE
- wound culture with polymicrobial growth with Pseudomonas, strep and Klebsiella seems sensitive to Zosyn
- NPWT to remain running continuous @ 125mmHg
- please keep plugged in at all times, please notify if pressure lost for >2hrs or >200cc in canister in 24hr period
- pain regimen
- Status post arterial Doppler study earlier with no clots. Possibility of Second Look arteriogram during this hospitalization.
- Vascular and podiatry following. Podiatry planning for further debridement tomorrow
- ID evaluation for antibiotics management
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
- Bump in creatinine to 2.2 noted. Seems patient creatinine fluctuates between 1.8 to as high as 2.7
- Check urine studies and urine eosinophils
-trend bmp.
#hypertension
- continue amlodipine
#hypercholesterolemia
- continue atorvastatin and ezetimibe
#PVD
- continue clopidogrel
#gout
- continue febuxostat
#Hx prostate cancer
s/p resection
- continue tamsulosin
#Hx DVT
- Holding Eliquis as plan for multiple procedures.
- heparin gtt for now
#Mild hyponatremia
Resolved
Code status: full code
DVT prophylaxis: heparin gtt
Anticipated Discharge: > 48 hours
Subjective/Interval History
-
Date of Service: April 17, 2025
Eating breakfast
plan for further debridement tomm
Objective Data
-
Labs:
Laboratory Results
04/17/25 04/17/25 04/17/25
06:16 11:00 Unknown
APTT Pending 150.7 H*
Sodium 137
Potassium 3.9
Chloride 109 H
Carbon Dioxide 24
BUN 29 H
Creatinine 2.2 H
Glucose 86
Calcium 9.1
Vital Signs:
Vital Signs
Temp Pulse Resp BP Pulse Ox
98.6 F 65 16 140/64 98
04/17/25 08:10 04/17/25 08:25 04/17/25 08:10 04/17/25 08:25 04/17/25 08:10
I&O
04/16/25 04/17/25 04/18/25
06:59 06:59 06:59
Intake Total 1780 / 1780 530 / 530 150 / 150
Output Total 1085 / 1085 630 / 630
Balance 695 / 695 -100 / -100 150 / 150
Data Reviewed
-
Total Time Spent with Patient (in minutes): 55
[2025-04-17 11:50] LABS: APTT 69.6 Sec (23.4-35.0)
[2025-04-17] MEDS: HEPARIN 2900 UNITS IV (12:19)
[2025-04-17 15:31] LABS: Body Fluid for Eosinophils No Eosinophils seen
[2025-04-17 16:20] VITALS: BP 150/65
[2025-04-17] MEDS: LIPITOR 10 MG PO (17:21)
[2025-04-17 20:24] LABS: APTT 85.8 Sec (23.4-35.0)
[2025-04-17] MEDS: FLOMAX 0.4 MG PO (21:21)
[2025-04-17 23:18] VITALS: BP 129/63
[2025-04-18] VITALS (9 sets, daily range): BP systolic 118–153; BP diastolic 45–66
[2025-04-18] MEDS: ZOSYN 50 IV ×4 (00:06→17:15)
[2025-04-18 03:10] LABS: APTT 55.1 Sec (23.4-35.0)
[2025-04-18] MEDS: HEPARIN 5800 UNITS IV ×2 (03:46→22:25)
[2025-04-18] MEDS: HEPARIN 25000 UNITS/250 ML IV (03:56)
[2025-04-18] MEDS: PLAVIX 75 MG PO (07:53)
[2025-04-18] MEDS: ULORIC 40 MG PO (07:53)
[2025-04-18] MEDS: NORVASC 7.5 MG PO (07:53)
[2025-04-18] MEDS: ZETIA 10 MG PO (07:53)
[2025-04-18 09:26] LABS: Hematocrit 34.2 % (39.0-52.0); Hemoglobin 11.3 g/dL (13.0-18.0); Mean Corp Hgb Conc. 33.0 g/dL (33.0-37.0); Mean Corpuscular Volume 88.1 fL (80.0-94.0); Platelet Count 167 10^3/uL (130-400); Red Cell Dist. Width 13.5 % (11.5-14.5)
[2025-04-18 10:05] LABS: APTT 171.4 Sec (23.4-35.0)
--- NOTE | 2025-04-18 10:35 | W.PN.HOSP.TC ---
Today's Communication/Plan
-
Start IVF as remains npo
monitor BP
IV zosyn
OR for debridement
Assessment / Plan
Assessment / Plan
General: Well Developed, Well Nourished, No Apparent Distress, Comfortable and Conversant
HEENT: NormoCephalic, Nose Appears Normal and Ears Appear Normal
Respiratory: Clear, Non Labored Respirations and Decreased Breath Sounds; No Wheezes, Rales or Rhonchi
Cardiac: S1/S2 and Regular Rhythm; No Tachycardia, Murmur or Peripheral Edema
GI: Soft, Non Tender, Non Distended and Normal Bowel Sounds
Musculoskeletal: No Clubbing, No Cyanosis, No Edema and Other (right foot splinted and wrapped post OR, wound VAC noted
Skin: Warm, Dry and IV/Catheter Site
Neuro: Awake and AO x 3
Psych: Calm
#Right lower extremity necrotic wound status post surgical I&D
s/p right foot excisional debridement with application of NPWT
- Continue with Zosyn. Stop vancomycin.
- NWB to RLE
- wound culture with polymicrobial growth with Pseudomonas, strep and Klebsiella seems sensitive to Zosyn
- NPWT to remain running continuous @ 125mmHg
- please keep plugged in at all times, please notify if pressure lost for >2hrs or >200cc in canister in 24hr period
- pain regimen
- Status post arterial Doppler study earlier with no clots. Possibility of Second Look arteriogram during this hospitalization.
- Plan for additional debridement per podiatry today. IVF started
- Vascular and podiatry following.
- ID evaluation for antibiotics management
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
- Bump in creatinine to 2.2 noted. Seems patient creatinine fluctuates between 1.8 to as high as 2.7
- FENA with intrinisic pattern. Urine eos negative. due to combination of vanc/zosyn?
-trend bmp. Labs pending from today.
#hypertension
- continue amlodipine
#hypercholesterolemia
- continue atorvastatin and ezetimibe
#PVD
- continue clopidogrel
#gout
- continue febuxostat
#Hx prostate cancer
s/p resection
- continue tamsulosin
#Hx DVT
- Holding Eliquis as plan for multiple procedures.
- heparin gtt for now
#Mild hyponatremia
Resolved
Code status: full code
DVT prophylaxis: heparin gtt
Anticipated Discharge: > 48 hours
Subjective/Interval History
-
Date of Service: April 18, 2025
denies R foot pain
Objective Data
-
Labs:
Laboratory Results
04/18/25 04/18/25 04/18/25
02:31 09:19 18:05
WBC 4.2 L
Hgb 11.3 L
Hct 34.2 L
Plt Count 167
APTT 55.1 H 171.4 H* Pending
Sodium Pending
Potassium Pending
Chloride Pending
Carbon Dioxide Pending
BUN Pending
Creatinine Pending
Glucose Pending
Calcium Pending
Vital Signs:
Vital Signs
Temp Pulse Resp BP Pulse Ox
98.2 F 59 18 118/65 100
04/18/25 07:50 04/18/25 07:50 04/18/25 07:50 04/18/25 07:50 04/18/25 07:50
I&O
04/17/25 04/18/25 04/19/25
06:59 06:59 06:59
Intake Total 530 / 530 383 / 383
Output Total 630 / 630 1090 / 1090
Balance -100 / -100 -707 / -707
Data Reviewed
-
Total Time Spent with Patient (in minutes): 55
[2025-04-18 10:43] LABS: Blood Urea Nitrogen 27 mg/dl (9-20); Calcium 9.1 mg/dl (8.4-10.2); Carbon Dioxide 23 mmol/L (22-30); Chloride 109 mmol/L (98-107); Estimated Creatinine Clearance 26 ml/min; Glucose 97 mg/dl (70-99); Potassium 4.1 mmol/L (3.5-5.1); Sodium 140 mmol/L (135-145); eGFR 33.72
[2025-04-18] MEDS: LR 1000 IV (11:06)
--- NOTE | 2025-04-18 12:09 | W.PN.ID1 ---
Date of Service
Date of Service: April 18, 2025
Today's Communication
Continue Zosyn.
Assessment / Plan
# Infection of ischemic wound right forefoot
-04/14/25 s/p excisional debridement to muscle and fascia
- post-lavage OR cx: Pseudomonas.
- For further debridement today and graft placment
- Continue Zosyn (d5)
# Condition present on admission:
hypertension
hypercholesterolemia
gout
Hx prostate cancer s/p XRT 2006
Hx low grade bladder CA s/p resection
Hx RLE DVT s/p IVC filter 2006; RLE DVT 01/2025
PAD s/p RLE angioplasty and stent 03/29/25
eye lid repair
Subjective / Review of Systems
Tolerating Zosyn
Vital Signs / Physical Exam
Vital Signs
Vital Signs
Temp Pulse Resp BP Pulse Ox
98.2 F 59 18 118/65 100
04/18/25 07:50 04/18/25 07:50 04/18/25 07:50 04/18/25 07:50 04/18/25 07:50
Physical Exam
Constitutional: No Acute Distress and Comfortable
Cardiovascular: Regular Rate
Pulmonary: Clear
Gastrointestinal: Soft, Non Tender and Non Distended
Extremities: Negative Edema
Wound: Other (Right foot with wound vac. )
Neurological: AO x 3
Objective Data
Lab Data
Lab Results
04/18/25 09:19
04/18/25 09:19
APTT 171.4 Sec (23.4-35.0) H* 04/18/25 09:19
Estimated Creat Clear 26 ml/min 04/18/25 09:19
Total Bilirubin 0.7 mg/dl (0.2-1.3) 04/14/25 21:50
AST 17 U/L (17-59) 04/14/25 21:50
ALT 17 U/L (0-50) 04/14/25 21:50
Alkaline Phosphatase 134 U/L (38-126) H 04/14/25 21:50
Most recent labs reviewed.
Micro Results:
04/14/25 18:14 Anaerobic Culture - Preliminary
Foot - Right Culture pending. Anaerobic cultures are examined after 3
days incubation. Additional information to follow.
04/14/25 18:17 Anaerobic Culture - Preliminary
Foot - Right Culture pending. Anaerobic cultures are examined after 3
days incubation. Additional information to follow.
04/14/25 18:14 Wound Culture - Preliminary
Foot - Right Pseudomonas aeruginosa
Klebsiella oxytoca
Streptococcus agalactiae
Gram Stain - Preliminary
04/14/25 18:17 Wound Culture - Preliminary
Foot - Right Pseudomonas aeruginosa
Gram Stain - Preliminary
04/14/25 21:51 MRSA Screen - Final
Nose No Methicillin Resistant Staphylococcus aureus isolated.
--- NOTE | 2025-04-18 14:49 | W.PN.UPDATE ---
Update Note
Progress Note Update
89M s/p right foot excisional debridement with application Integra graft of NPWT.
- NWB RLE, partial weight bearing to right heel in surgical shoe for transfers
- recommend 3 weeks abx for soft tissue coverage
- continue NPWT, anticipate next vac change vs Friday, not a barrier to discharge
-- after patient will need vac changed every 2-3 days
-- patient will require home wound vac
- NPWT to remain running continuous @125mmHg
-- please keep plugged in at all times, please notify if pressure lost for >2hrs or >200cc in canister in 24hr period
- will reassess on AM rounds
--- NOTE | 2025-04-18 15:46 | PTCARENOTE ---
Pt back in room from PACU after I and D of right foot. VSS, heparin gtt restarted at 1100 units/hr, ptt due at 2145.Pt denies pain, dressing c/d/i wound vac in place.
[2025-04-18] MEDS: LIPITOR 10 MG PO (17:15)
[2025-04-18] MEDS: ROXICODONE 5 MG PO (20:26)
[2025-04-18] MEDS: FLOMAX 0.4 MG PO (21:40)
[2025-04-18 21:58] LABS: APTT 44.7 Sec (23.4-35.0)
[2025-04-19] MEDS: ZOSYN 50 IV ×4 (00:10→17:37)
[2025-04-19 02:48] VITALS: BP 138/58
[2025-04-19] MEDS: LR 1000 IV (04:02)
[2025-04-19 05:14] LABS: APTT 187.1 Sec (23.4-35.0)
[2025-04-19 07:35] VITALS: BP 138/69
--- NOTE | 2025-04-19 08:03 | W.PN.HOSP.TC ---
Today's Communication/Plan
-
await wound vac set up
podiatry recs
po eliquis
Assessment / Plan
Assessment / Plan
General: Well Developed, Well Nourished, No Apparent Distress, Comfortable and Conversant
HEENT: NormoCephalic, Nose Appears Normal and Ears Appear Normal
Respiratory: Non Labored Respirations
Cardiac: S1/S2 and Regular Rhythm;
GI: Soft, Non Distended and Normal Bowel Sounds
Musculoskeletal: No Clubbing, No Cyanosis, No Edema and Other (right foot splinted and wrapped post OR, wound VAC noted
Skin: Warm, Dry
Neuro: Awake and AO x 3
Psych: Calm
#Right lower extremity necrotic wound status post surgical I&D
s/p right foot excisional debridement with application of NPWT
s/p debridement, graft placement and wound vac on 04/18
- Continue with Zosyn. Can switch to p.o. ciprofloxacin 500 mg daily through 05/01/2025
- NWB to RLE
- wound culture with polymicrobial growth with Pseudomonas, strep and Klebsiella seems sensitive to Zosyn
- NPWT to remain running continuous @ 125mmHg
- please keep plugged in at all times, please notify if pressure lost for >2hrs or >200cc in canister in 24hr period
- pain regimen
- Status post arterial Doppler study earlier with no clots.
- Vascular and podiatry following. Per vascular surgery-no plan for further inpatient procedure.
- ID evaluation for antibiotics management
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
- Bump in creatinine to 2.2 noted. Seems patient creatinine fluctuates between 1.8 to as high as 2.7
- FENA with intrinisic pattern. Urine eos negative. due to combination of vanc/zosyn?
-trend bmp. Cr improved. labs pending from today.
#hypertension
- continue amlodipine
-
#hypercholesterolemia
- continue atorvastatin and ezetimibe
#PVD
- continue clopidogrel
#gout
- continue febuxostat
#Hx prostate cancer
s/p resection
- continue tamsulosin
#Hx DVT
- restart Eliuqis. d/w with podiatry okay to restart Eliquis.
- heparin gtt for now
#Mild hyponatremia
Resolved
Code status: full code
DVT prophylaxis: eliquis
Dispo-home vn. will need wound vac set up. CM aware.
d/w with spouse at bedside in details
Anticipated Discharge: Within 24 hours
Subjective/Interval History
-
Date of Service: April 19, 2025
states R foot feels better
Objective Data
-
Labs:
Laboratory Results
04/18/25 04/19/25 04/19/25
21:37 04:27 06:00
APTT 44.7 H 187.1 H*
Sodium Pending
Potassium Pending
Chloride Pending
Carbon Dioxide Pending
BUN Pending
Creatinine Pending
Glucose Pending
Calcium Pending
04/19/25
11:15
APTT Pending
Sodium
Potassium
Chloride
Carbon Dioxide
BUN
Creatinine
Glucose
Calcium
Vital Signs:
Vital Signs
Temp Pulse Resp BP Pulse Ox
97.9 F 57 16 138/69 97
04/19/25 07:35 04/19/25 07:35 04/19/25 07:35 04/19/25 07:35 04/19/25 07:35
I&O
04/18/25 04/19/25 04/20/25
06:59 06:59 06:59
Intake Total 383 / 383 1760 / 1760
Output Total 1090 / 1090 1370 / 1370
Balance -707 / -707 390 / 390
Data Reviewed
-
Total Time Spent with Patient (in minutes): 55
[2025-04-19] MEDS: ZETIA 10 MG PO (08:31)
[2025-04-19] MEDS: PLAVIX 75 MG PO (08:31)
[2025-04-19] MEDS: ULORIC 40 MG PO (08:31)
[2025-04-19] MEDS: NORVASC 7.5 MG PO (08:31)
[2025-04-19] MEDS: ELIQUIS 5 MG PO ×2 (08:32→20:13)
--- NOTE | 2025-04-19 11:03 | W.PN.ID1 ---
Date of Service
Date of Service: April 19, 2025
Today's Communication
At time of dc, transition to cipro 500mg po q24H through 05/01/25.
Assessment / Plan
# Infection of ischemic wound right forefoot
-04/14/25 s/p excisional debridement to muscle and fascia
- post-lavage OR cx: Pseudomonas.
- 04/18/25 s/p debridement, graft placement and wound vac.
- Continue Zosyn (d6)
- At time of dc, transition to cipro 500mg po q24H through 05/01/25. Check baseline QTc.
# Condition present on admission:
hypertension
hypercholesterolemia
gout
Hx prostate cancer s/p XRT 2006
Hx low grade bladder CA s/p resection
Hx RLE DVT s/p IVC filter 2006; RLE DVT 01/2025
PAD s/p RLE angioplasty and stent 03/29/25
eye lid repair
Chief Complaint
-: Other (Foot wound)
Subjective / Review of Systems
No complaints.
Vital Signs / Physical Exam
Vital Signs
Vital Signs
Temp Pulse Resp BP Pulse Ox
97.9 F 57 16 138/69 97
04/19/25 07:35 04/19/25 07:35 04/19/25 07:35 04/19/25 07:35 04/19/25 07:35
Physical Exam
Constitutional: No Acute Distress and Comfortable
Cardiovascular: Regular Rate
Pulmonary: Clear
Gastrointestinal: Soft, Non Tender and Non Distended
Extremities: Negative Edema
Wound: Other (Right foot dressing with wound vac. )
Neurological: AO x 3
Objective Data
Lab Data
Lab Results
04/18/25 09:19
APTT Cancelled 04/19/25 11:15
Estimated Creat Clear 26 ml/min 04/18/25 09:19
Total Bilirubin 0.7 mg/dl (0.2-1.3) 04/14/25 21:50
AST 17 U/L (17-59) 04/14/25 21:50
ALT 17 U/L (0-50) 04/14/25 21:50
Alkaline Phosphatase 134 U/L (38-126) H 04/14/25 21:50
Most recent labs reviewed.
Micro Results:
04/14/25 18:14 Wound Culture - Final
Foot - Right Pseudomonas aeruginosa
Klebsiella oxytoca
Streptococcus agalactiae
Gram Stain - Final
04/14/25 18:14 Anaerobic Culture - Final
Foot - Right NO ANAEROBES ISOLATED
04/14/25 18:17 Anaerobic Culture - Preliminary
Foot - Right Culture pending. Anaerobic cultures are examined after 3
days incubation. Additional information to follow.
04/14/25 18:17 Wound Culture - Preliminary
Foot - Right Pseudomonas aeruginosa
Gram Stain - Preliminary
04/14/25 21:51 MRSA Screen - Final
Nose No Methicillin Resistant Staphylococcus aureus isolated.
[2025-04-19 11:30] VITALS: BP 131/61
--- NOTE | 2025-04-19 11:48 | WOUNDNOTE ---
CHANDLER RN NOTE: Followed up with patient this morning who confirmed plan upon discharge is home with wound vac. FAVIO Claudio also confirmed and aware will need VN for vac dressing changes. Faxed PW to [employer] to rep Angely for insurance approval.
Will confirm vac dressing orders with Dr. Light. Once wound vac approved wound care nurse will bring home vac stored in our office, for application and teaching. Patient updated on the above, states plan for discharge so far is .
--- NOTE | 2025-04-19 12:52 | W.PN.UPDATE ---
Update Note
Progress Note Update
89M s/p R foot excisional debridement with application of integra graft and NPWT. Doing well this AM, no pain, sensation at baseline, cft wnl.
- NWB RLE, partial WB to right heel in surgical shoe for transfers
- 3 weeks abx for skin/soft tissue coverage
- continue NWPT, anticipate vac change vs friday, not a barrier to dc
- - after vac change every 2-3 days
-- will require home vac
- NPWT to run continuous @125mmHg
- may follow up in office
--- NOTE | 2025-04-19 13:11 | WOUNDNOTE ---
WON RN NOTE ADDENDUM: Confirmed with Dr. Light wound measurements, vac dressing order and next change due either or Friday, wound nurse can do if still here. Instructed to leave Integra graft in place and just change black foam, no
adaptic needed. Re faxed PW to [employer] with updated information. Will update orders and discharge instructions.
--- NOTE | 2025-04-19 13:17 | CM ---
Discharge POC: Home with wound vac and [facility] RN, PT/OT services. NWB RLE, Partial weight bearing R heel with surgical shoe for transfers. PO antibiotics at discharge. Await approval and set up of wound vac. Wound Care managing vac order.
[2025-04-19 14:02] LABS: Blood Urea Nitrogen 24 mg/dl (9-20); Calcium 9.1 mg/dl (8.4-10.2); Carbon Dioxide 26 mmol/L (22-30); Chloride 105 mmol/L (98-107); Estimated Creatinine Clearance 24 ml/min; Glucose 140 mg/dl (70-99); Potassium 3.8 mmol/L (3.5-5.1); Sodium 135 mmol/L (135-145); eGFR 31.71
[2025-04-19 15:37] VITALS: BP 119/57
[2025-04-19] MEDS: LIPITOR 10 MG PO (17:36)
[2025-04-19] MEDS: FLOMAX 0.4 MG PO (22:32)
[2025-04-19 23:21] VITALS: BP 140/64
[2025-04-20] MEDS: ZOSYN 50 IV ×3 (00:35→13:10)
[2025-04-20 08:13] VITALS: BP 147/69
[2025-04-20] MEDS: PLAVIX 75 MG PO (08:24)
[2025-04-20] MEDS: ZETIA 10 MG PO (08:24)
[2025-04-20] MEDS: ELIQUIS 5 MG PO (08:24)
[2025-04-20] MEDS: NORVASC 7.5 MG PO (08:24)
[2025-04-20] MEDS: ULORIC 40 MG PO (08:24)
[2025-04-20 09:27] LABS: Blood Urea Nitrogen 24 mg/dl (9-20); Calcium 9.3 mg/dl (8.4-10.2); Carbon Dioxide 26 mmol/L (22-30); Chloride 109 mmol/L (98-107); Estimated Creatinine Clearance 23 ml/min; Glucose 94 mg/dl (70-99); Potassium 4.1 mmol/L (3.5-5.1); Sodium 139 mmol/L (135-145); eGFR 29.90
--- NOTE | 2025-04-20 11:16 | W.PN.HOSP.TC ---
Addendum entered and electronically signed by Beto Caputo MD 04/20/25 15:47:
Discussed with spring encaser and wound care. Home wound VAC delivered. Discussed with , will discharge patient. Discussed with infectious disease who discussed with podiatry and they prefer antibiotics through 05/07/2025
Time of discharge 38 minutes
Original Note:
Today's Communication/Plan
-
Monitor vital signs and see plan
survey project manager aware, set up wound VAC. Potential discharge if wound VAC set up
Continue antibiotic
monitor renal function
bladder scan
Assessment / Plan
Assessment / Plan
General: Well Developed, Well Nourished, No Apparent Distress, Comfortable and Conversant
HEENT: NormoCephalic, Nose Appears Normal and Ears Appear Normal
Respiratory: Non Labored Respirations
Cardiac: S1/S2 and Regular Rhythm;
GI: Soft, Non Distended and Normal Bowel Sounds
Musculoskeletal: Other (right foot splinted and wrapped post OR, wound VAC noted
Skin: Warm, Dry
Neuro: Awake and AO x 3
Psych: Calm
#Right lower extremity necrotic wound status post surgical I&D
s/p right foot excisional debridement with application of NPWT
s/p debridement, graft placement and wound vac on 04/18
- Continue with Zosyn. Can switch to p.o. ciprofloxacin 500 mg daily through 05/01/2025
- NWB RLE, partial WB to right heel in surgical shoe for transfers
- wound culture with polymicrobial growth with Pseudomonas, strep and Klebsiella seems sensitive to Zosyn, . Per ID at time of dc, transition to cipro 500mg po q24H through 05/01/25.
- NPWT to remain running continuous @ 125mmHg
- please keep plugged in at all times, please notify if pressure lost for >2hrs or >200cc in canister in 24hr period
- pain regimen
- Status post arterial Doppler study earlier with no clots.
- Vascular and podiatry following. Per vascular surgery-no plan for further inpatient procedure.
- ID evaluation for antibiotics management
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
- Bump in creatinine to 2.2 noted. Seems patient creatinine fluctuates between 1.8 to as high as 2.7
- FENA with intrinisic pattern. Urine eos negative. due to combination of vanc/zosyn?
Patient to get repeat BMP outpatient; no dysuria,oligouria
#hypertension
- continue amlodipine
-
#hypercholesterolemia
- continue atorvastatin and ezetimibe
#PVD
- continue clopidogrel
#gout
- continue febuxostat
#Hx prostate cancer
s/p resection
- continue tamsulosin
#Hx DVT
- restart Eliuqis. d/w with podiatry okay to restart Eliquis.
#Mild hyponatremia
Resolved
Code status: full code
DVT prophylaxis: eliquis
Dispo-home vn. will need wound vac set up. CM aware.
Anticipated Discharge: Today
Subjective/Interval History
-
Date of Service: April 20, 2025
Denies pain
Objective Data
-
Labs:
Laboratory Results
04/20/25
07:18
Sodium 139
Potassium 4.1
Chloride 109 H
Carbon Dioxide 26
BUN 24 H
Creatinine 2.1 H
Glucose 94
Calcium 9.3
Vital Signs:
Vital Signs
Temp Pulse Resp BP Pulse Ox
98.2 F 55 16 147/69 97
04/20/25 08:13 04/20/25 08:13 04/20/25 08:13 04/20/25 08:24 04/20/25 08:13
I&O
04/19/25 04/20/25 04/21/25
06:59 06:59 06:59
Intake Total 1760 / 1760 1230 / 1230
Output Total 1370 / 1370 800 / 800
Balance 390 / 390 430 / 430
[2025-04-20 13:10] VITALS: BMI 24.9
[2025-04-20] MEDS: COLACE 100 MG PO (13:10)
--- NOTE | 2025-04-20 13:30 | W.PN.ID1 ---
Date of Service
Date of Service: April 20, 2025
Today's Communication
See below
Assessment / Plan
# Infection of ischemic wound right forefoot
-04/14/25 s/p excisional debridement to muscle and fascia
- post-lavage OR cx: Pseudomonas.
- 04/18/25 s/p debridement, graft placement and wound vac.
- Continue Zosyn (d7)
- At time of dc, transition to cipro 500mg po q24H through 05/01/25 or through 05/07/25. QTc 494
Podiatry requesting 3 weeks of abx, but unclear whether 3 weeks from admission or 3 weeks from graft placement.
I [place]-Texted Dr. Jae Keller, awaiting reply.
- Discussed potential adverse reactions to cipro including tendinitis/rupture, C. diff, an less likely prolonged QTc.
# Condition present on admission:
hypertension
hypercholesterolemia
gout
Hx prostate cancer s/p XRT 2006
Hx low grade bladder CA s/p resection
Hx RLE DVT s/p IVC filter 2006; RLE DVT 01/2025
PAD s/p RLE angioplasty and stent 03/29/25
eye lid repair
Chief Complaint
-: Other (Foot wound)
Subjective / Review of Systems
Waiting for delivery of wound vac.
Vital Signs / Physical Exam
Vital Signs
Vital Signs
Temp Pulse Resp BP Pulse Ox
98.2 F 55 16 147/69 97
04/20/25 08:13 04/20/25 08:13 04/20/25 08:13 04/20/25 08:24 04/20/25 08:13
Physical Exam
Constitutional: No Acute Distress and Comfortable
Cardiovascular: Regular Rate
Pulmonary: Clear
Gastrointestinal: Soft, Non Tender and Non Distended
Extremities: Negative Edema
Wound: Other (Right foot dressing with wound vac. )
Neurological: AO x 3
Objective Data
Lab Data
Lab Results
04/18/25 09:19
04/20/25 07:18
APTT Cancelled 04/19/25 11:15
Estimated Creat Clear 23 ml/min 04/20/25 07:18
Total Bilirubin 0.7 mg/dl (0.2-1.3) 04/14/25 21:50
AST 17 U/L (17-59) 04/14/25 21:50
ALT 17 U/L (0-50) 04/14/25 21:50
Alkaline Phosphatase 134 U/L (38-126) H 04/14/25 21:50
Most recent labs reviewed.
Micro Results:
04/14/25 18:17 Wound Culture - Final
Foot - Right Pseudomonas aeruginosa
Gram Stain - Final
04/14/25 18:17 Anaerobic Culture - Final
Foot - Right
04/14/25 18:14 Wound Culture - Final
Foot - Right Pseudomonas aeruginosa
Klebsiella oxytoca
Streptococcus agalactiae
Gram Stain - Final
04/14/25 18:14 Anaerobic Culture - Final
Foot - Right NO ANAEROBES ISOLATED
04/14/25 21:51 MRSA Screen - Final
Nose No Methicillin Resistant Staphylococcus aureus isolated.
--- NOTE | 2025-04-20 14:01 | CM ---
CM discussed wound vac with [facility] RN, Mohini Quiñones and Marizol Mitchell. Current plan is for wound vac change on or Friday; awaiting confirmation that home VAC has been ordered.
Plan: Discharge to home with [facility] and home VAC when medically ready.
--- NOTE | 2025-04-20 14:03 | WOUNDNOTE ---
[facility] RN note: Contacted Angely Mcgovern who stated [employer] emailed Dr. Light a Docusign however, it hasn't been signed yet. The home vac cannot be approved with a physician signed script. Sai texted Dr. Light, no response yet. Sai texted
Dr. Keller who stated he would sign a Docusign. Gave Angely Keller's email [email or web address]. Angely notified this quality analyst/technical writer about 20 minutes later that the email should have been sent. Sai texted Dr. Keller asking if he received and
signed the DocuSigh; await response. Updated Shelley Quiñones from [facility].
--- NOTE | 2025-04-20 14:41 | WOUNDNOTE ---
WO RN note: Patient's ready [facility] vac was approved as per [employer] therapy express portal. t/c Spoke with patient who is calling his to come back to his room. Will bring up his home vac. Sai texted Shelley Quiñones re: home vac approved,
next vac dressing change do tomorrow or Friday as per Sofie Carroll's note. Updated Dr. Caputo re: home vac was approved and will switch to his home vac today.
--- NOTE | 2025-04-20 15:43 | W.DCSUMMARY ---
Discharge Summary
Discharge Data
Date of Admission: 04/14/25
Date of Discharge: 04/20/25
-
Pending Results: Yes
Hospital Course
89-year-old male with past medical history of CKD stage IV, hypertension, hyperlipidemia, PVD, gout, prostate cancer s/p resection, DVT came to the hospital with right lower extremity necrotic wound. Patient was seen by podiatry and vascular.
Patient underwent right foot excisional debridement by podiatry. Podiatry also ordered wound VAC for patient. Patient was seen by infectious disease as well throughout hospitalization. Wound culture had polymicrobial growth and initially patient
was on IV antibiotic which were later transitioned to oral ciprofloxacin upon discharge. Patient also had CONY on CKD and was instructed to follow-up with repeat BMP outpatient. Patient did not had any dysuria or oliguria. Once patient symptoms
continue to improve, he was then discharged home with wound VAC on oral antibiotic with instructions to follow-up with all the physicians outpatient.
Discharge Plan
-
Patient Disposition: Home with Home Care
Discharge Diagnosis/Procedures: Right lower extremity necrotic wound status post surgical I&D
s/p right foot excisional debridement with application of NPWT
s/p debridement, graft placement and wound vac on 04/18/25
CONY on CKD stage IV
Mild hyponatremia
Condition: Fair
Diet: Low Cholesterol
Activity: Other activity
Additional Activity: NWB RLE, partial WB to right heel in surgical shoe for transfers
Driving Restrictions: Not until seen by your Dr
Blood Work: BMP later this week outpatient with primary care provider
Activity Restrictions/Additional Instructions:
Wound Care Instructions
R foot: clean/ rinse with saline, next vac change due either 04/21 or 04/[address] Light. Keep Integra graft intact -Use black foam only and then Change every 48 - 72 hours (i. e. [id number]-Iwvohpz) and prn if unable to obtain a seal.
Low Intensity, Continuous at 125 mmHg. Upon discharge or transfer to another facility, remove VAC foam and apply NS moistened gauze dressing unless home VAC unit available. Call [employer] or [employer] support 30/12 [phone] for vac pump
problems/concerns.
Pad ankle with ABD pad under tubing
secure vac dressing with blas wrap.
NWB RLE, partial WB to right heel in surgical shoe for transfers
Follow up with Crusher Loader Operator
If taking antacid, iron, zinc, magnesium, aluminum, calcium, or sucralfate, take these products 6 hours before or 2 hours after ciprofloxacin.
Referrals:
Yarelis Hernandez PA-C [Specified Professional Personl, Vascular Surgery] - 05/02/25 1:30 pm
Referral Note: Vascular surgery office follow-up
Ignacio Light DPM [Active, Orthopedics] - in one to two days
Jaleel Arce MD [Family Provider, Internal Medicine] - in one week
Prescriptions:
New
docusate sodium 100 mg Capsule
100 mg PO BID Qty: 0 0RF
polyethylene glycol 3350 17 gram Powder In Packet
17 g PO DAILYPRN PRN (Reason: constipation) Qty: 0 0RF
acetaminophen 325 mg Tablet
650 mg PO Q4HPRN PRN (Reason: mild pain) Qty: 0 0RF
oxycodone 5 mg Tablet
5 mg PO Q4HPRN PRN (Reason: moderate to severe pain) Qty: 20 0RF
ciprofloxacin HCl 500 mg tablet
500 mg PO Q24H Qty: 17 0RF
Probiotic 10 billion cell capsule
10,000 mmu cells PO DAILY Qty: 20 0RF
Continued
amlodipine 5 mg Tablet
7.5 mg PO DAILY
ezetimibe 10 mg Tablet
10 mg PO DAILY
febuxostat [Uloric] 40 mg Tablet
40 mg PO DAILY
tamsulosin 0.4 mg Capsule
0.4 mg PO HS 30 Days Qty: 30 0RF
cholecalciferol (vitamin D3) [Vitamin D3] 25 mcg (1,000 unit) Tablet
25 mcg PO DAILY
atorvastatin 10 mg Tablet
10 mg PO QPM 90 Days Qty: 90 0RF
clopidogrel 75 mg Tablet
75 mg PO DAILY 90 Days Qty: 90 0RF
Eliquis 5 mg Tablet
5 mg PO BID 30 Days Qty: 60 0RF
Discharge Orders:
Discharge Patient (As Directed); Ordered 04/20/25
Ordered By: Beto Caputo
Discharge Date and Time
Discharge Date/Time: 04/20/25 17:35
Print Language: ARABIC
--- NOTE | 2025-04-20 16:02 | VNURNOTE ---
[facility] liaison met with patient and spouse at bedside. They are agreeable to resume services, however, they stated they do not want previous primary VN. Spouse adamant that she wants a 'certified' wound nurse. Explained to spouse and pt that all
[facility] nurses are trained in wound vacs and wound care. Updated [facility] electronic maintenance supervisor Pierre and Thierry. Resumption referral accepted in [facility].
[2025-04-20 16:09] VITALS: BP 133/64
--- NOTE | 2025-04-20 16:09 | WOUNDNOTE ---
[facility] RN Note: Switched patient's vac pump from hospital rental vac ulta to his Ready mcfp vac. Instructed patient and how to turn on/off vac pump, how to change the vac canister, how to clamp/disconnect and reconnect/unclamp vac tubing, how
to plug in power cord. Instructed patient to call VN or [employer] tech support / if vac pump is not working or is loses it's suction. Patient aware that the vac cannot be off suction for more that 2 hours if disconnected or not working. Patient's
sacral skin intact. Kerlix/Omar intact over vac dressing R foot. Skin on L heel intact. Patient instructed heel off loading in bed. Air chair cushion given. Vac supplies with patient. Patient signed [employer] ready home vac proof of delivery form.
Will fax to Angely from [employer]. Updated Dr. Caputo, RN Marizol. Shelley Quiñones was in during visit and is aware of discharge today, next vac dressing due tomorrow or Friday. Patient to follow up with Dr. Keller or Dr. Light. Confirmed with
Nadege the Kerlix/Omar dressing over R foot vac dressing only needs to be changed during vac dressing changes. Instructed patient if wraps causes pain, to notify VN or surgeon. Patient reports R foot dressing/Omar feels comfortable. Patient aware to
make sure vac tubing is not causing skin pressure and be mindful of the tubing during transfers to prevent tripping. Patient states compliance with NWB RLE, partial WB to right heel in surgical shoe for transfers. Patient's heels off bed with
pillow. Patient turns self in bed. R toes warm. Appetite good.
--- NOTE | 2025-04-20 17:02 | WOUNDNOTE ---
WO RN note: Faxed patient signed Ready home vac pump/equipment proof of delivery form to Angely Mcgovern from [employer]. Notified [employer] via [employer] therapy express portal of hospital rental vac Ulta pump (serial #[id number]) stop bill date as of
04/20/25 and scrap picker (work order# [id number]).
== END 2025-04-20 17:35 | disposition home health service (06) | DRG 577 ==
LOC: 2 SOUTH 15:06
PROVIDERS: Nurse Practitioner Family; Student in an Organized Health Care Education/Training Program; ADMITTING PHYSICIAN Hospitalist; ATTENDING PHYSICIAN Internal Medicine; CONSULT PHYSICIAN Internal Medicine Infectious Disease; CONSULT PHYSICIAN Student in an Organized Health Care Education/Training Program; FAMILY PHYSICIAN Internal Medicine
PROC: F08L5AZ Wound Management Treatment of Musculoskeletal System - Lower Back / Lower Extremity using Negative Pressure Therapy (ICD-10-PCS; 2025-04-14)
PROC: 0JBQ0ZZ Excision of Right Foot Subcutaneous Tissue and Fascia, Open Approach (ICD-10-PCS; 2025-04-14)
PROC: 3E10X8Z Irrigation of Skin and Mucous Membranes using Irrigating Substance (ICD-10-PCS; 2025-04-18)
PROC: 0HRMXJ3 Replacement of Right Foot Skin with Synthetic Substitute, Full Thickness, External Approach (ICD-10-PCS; 2025-04-18)
DX: S91.301A Unspecified open wound, right foot, initial encounter (principal); E87.1 Hypo-osmolality and hyponatremia; L02.611 Cutaneous abscess of right foot; N17.9 Acute kidney failure, unspecified; N18.4 Chronic kidney disease, stage 4 (severe); L97.413 Non-pressure chronic ulcer of right heel and midfoot with necrosis of muscle; L97.513 Non-pressure chronic ulcer of other part of right foot with necrosis of muscle; L08.9 Local infection of the skin and subcutaneous tissue, unspecified; I12.9 Hypertensive chronic kidney disease with stage 1 through stage 4 chronic kidney disease, or unspecified chronic kidney disease; Z79.01 Long term (current) use of anticoagulants; Z79.02 Long term (current) use of antithrombotics/antiplatelets; Z79.899 Other long term (current) drug therapy; Z87.891 Personal history of nicotine dependence; X58.XXXA Exposure to other specified factors, initial encounter
CPT/HCPCS: 80048; 80053; 80202; 81099; 82570; 84300; 85025; 85027; 85730; 87070; 87075; 87077; 87186; 87205; 93005; 93922; 93925; 93926; 93971; 93978; 97116; 97163; 97167; 97535; Q4104

== ENCOUNTER → 2025-04-27 09:57 | Outpatient (REF) | payer MEDICARE, BC, SELFPAY ==
[2025-04-27 11:00] LABS: Blood Urea Nitrogen 42 mg/dl (9-20); Calcium 9.6 mg/dl (8.4-10.2); Carbon Dioxide 21 mmol/L (22-30); Chloride 112 mmol/L (98-107); Glucose 97 mg/dl (70-99); Potassium 4.4 mmol/L (3.5-5.1); Sodium 138 mmol/L (135-145); eGFR 31.71
== END ==
LOC: OLABPV 09:57
PROVIDERS: ATTENDING PHYSICIAN Internal Medicine
DX: S91.301A Unspecified open wound, right foot, initial encounter (principal)
CPT/HCPCS: 36415; 80048